=== PATIENT | male | born 1945 | race Caucasian/White ===

== ENCOUNTER 2025-01-03 00:19 | Day surgery (SDC) | payer MEDICARE, SELFPAY ==
[2024-12-26 10:06] VITALS: BMI 20.5
--- OUTSIDE RECORDS SUMMARY | 2025-01-03 00:21 | XMS_ITS | Clinical Summary ---
Author Organization [facility] Address [address] [place] [address] Phone Care Team Providers Care Gauge Inspector Name Role Phone KAI BUSCH Unavailable [phone] KIMBERLEE CHRIS, PHANI Kraus Unavailable [phone] Reason for Visit and Chief Complaint The Chief Complaint is: Pt. here for H&P for MILD procedure scheduled for 10/22/23 Plan of Treatment Will proceed as planned with bilateral L3 - 4, L4 - 5 minimally invasive lumbar decompression under fluoroscopic guidance. Follow-up in 7 to 14 days for wound care. - Last Documented On 09/30/2023 2:41PM ; [facility] Pending Tests Order Diagnosis Results Due Ordering P rovider Pain Management CPT MILD Procedure Spinal steno sis, lumbar region with neurogenic claudication 07/17/23 PHANI FARRAR MD Last Documented On 7:07AM ; [facility] Assessments Includes: Assessments from this encounter Findings - [M19.90 - Unspecified osteoarthritis, unspecified site] Osteoarthritis of multiple sites - Last Documented On 09/30/2023 2:41PM ; [facility] - [M46.1 - Sacroiliitis, not elsewhere classified] Left sacroiliitis - Last Documented On 09/30/2023 2:41PM ; [facility] - [M25.552 - Pain in left hip] Arthralgia of the left pelvis/hip/femur - Last Documented On 09/30/2023 2:41PM ; [facility] - [M54.9 - Dorsalgia, unspecified] DORSALGIA - Last Documented On 09/30/2023 2:41PM ; [facility] - [M47.897 - Other spondylosis, lumbosacral region] Lumbosacral spondylosis - Last Documented On 09/30/2023 2:41PM ; [facility] - [M48.062 - Spinal stenosis, lumbar region with neurogenic claudication] Lumbar stenosis with neurogenic claudication - Last Documented On 09/30/2023 2:41PM ; [facility] - [M54.17 - Radiculopathy, lumbosacral region] Lumbosacral radiculopathy - Last Documented On 09/30/2023 2:41PM ; [facility] - [G89.29 - Other chronic pain] Chronic pain - Last Documented On 09/30/2023 2:41PM ; [facility] Medical Equipment - Implanted Devices Includes: Current Devices No Medical Equipment Recorded Medications Includes: Medications discussed during this encounter and other current Medications Current Medications (continue as prescribed) Benicar HCT 20-12.5 MG Oral Tablet 02/04/2022 Provid er: Diagnosis: Last Documented On 02/04/2022 2:26PM By Christian GARCIA ; [facility] Ezetimibe 10 MG Oral Tablet 02/04/2022 Provider: Diagnosis: Last Documented On 02/04/2022 2:22PM By Christian GARCIA ; [facility] Past Medications on file Diclofenac Sodium 75 MG Oral Tablet Delayed Release 07/29/2022 - 10/27/2022 Provider: PHANI FARRAR MD Diagnosis: Dorsalgia, unspe cified TAKE ONE TABLET BY MOUTH TWI CE a DAY WITH FOOD AND WATER NEEDED FOR PAIN Last Documented On 07/29/2022 12:37PM By Phani Farrar MD ; [facility] Medications Administered Includes: Administered Medications from this encounter No Administered Medications Recorded Vital Signs Includes: Vital Signs from this encounter Vital Name 09/30/2023 01:59P Blood Pressure Sitting R 126/88 BP Cuff Size Regular Pulse Rate-Sitting (bpm) 64 Respiration Rate (breaths/min) 16 Height (in) 69 Weight (lb) 145 Body Mass Index 21.4 Body Surface Area 1.8 Pain Level 1 Oxygen Saturation (%) 95 Last Documented: On 09/30/2023 2:02PM ; [facility] Results Includes: Results discussed during this encounter No Results Recorded For Specified Dates History of Present Illness Includes: History of Present Illness from this encounter HPI PHQ-9 Score: 0 Date:09-23-22BPI Score: Date:MiDAS Score: Date:SOAPP-R Score: 0 low Date:23-86-33Gmby Location: LOWER BACK L4 L5 LT HIP PAIN Quality: SHOOTING CONSTANT PAIN IN HIP BACK IS CONSTANTRadiation: DOWN LT LEG DOWN THE INSIDE TO FOOT AND GOES TO SLEEPSeverity: MODERATETiming: CONTINUOUSAssociated Sx: NONEAggravating Factors:STANDING WALKING BENDING FORWARD, BENDING DOWN CERTAIN WAYS HE MOVES CAUSES SHARP PAIN TO THE HIP, LIFTING, 5 LBS UP STAIRSAlleviating Factors:SITTING, LEANING FORWARD, Past Tx: TENS UNIT, ICE HEAT, DICLOFENAC, GABAPENTIN,BIOFREEZE, LIDICAINE, DR. CASTANO PAIN MANAGEMENT CORTIZONE SHOT DID NOT HELP ALSO INJECTIONS 20 YEARS AGO STEROID EPIDURAL AND THAT HELP. DR. BACON IN [place] CHIROPRACTOR ACCU PUNTURE FOR HEADACHES THAT HELPED. HAS SEEN DR.. 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 YOEL WELLS is a 77 year old male. - Allergy list reviewed - Allergy list reviewed - Problem list reviewed - Medication reconciliation performed - Medication list reviewed - Pain comes/goes - Pain in AM Pain in AM - Primary pain location Left hip and lower back - Primary pain duration Inthe back it is constant - Secondary pain duration It changes sometimes hours other times shorter - Secondary pain location Left hip - Pain is dull, aching - Pain is described as numbness - Pain is deep - Pain is heavy - Relieved by repositioning - Relieved by leaning forward - Pain aggravated sitting - Pain aggravated standing - Pain aggravated by walking - Pain aggravated lifting - Pain aggravated by working - Pain aggravated bending - No vertigo Discussion:Patient returns in follow-up in preparation for plan to middle invasive lumbar decompression bilaterally at the L3 - 4 and L4 - 5 levels. He has had no interval change in his typical health. He denies new peripheral edema, fatigue or shortness of breath/dyspnea. He denies any decreasing activity tolerance. He has started no new medications has no new allergies since last seen. We discussed at length the procedure, appropriate outcomes and expectations. We discussed appropriate pre-and post procedure instructions to include NPO status from midnight the morning the procedure except for his and medications with small sip of water, holding aspirin and NSAIDs for 7 days before in 2 days after the procedure. We discussed having a food service driver the day the procedure. We also discussed appropriate wound care and activity restrictions following the procedure to include the avoidance of showers are soaks for 48 hours and the avoidance of soaks for one week after the procedure. He will not drive for the following week. We discussed use of the hip cleanse the night before the morning of the procedure to reduce the risk of infection. He is not allergic to penicillin to cephalosporins. He is not diabetic. He is not on anticoagulants. He does have tramadol at home for pain control as necessary but will likely be able to control his pain with ice, rest and [id number] analgesics (Tylenol). Patient will follow-up in 7 to 14 days to assess wound healing. He understands it may take as long as 6 months to see the full effect the procedure. He is not been scheduled for physical therapy evaluation because he prefers to do this closer to home and [place]. The do not have are postoperative protocol but we can certainly transfer this to them prior to initiation of therapy. Risks, benefits and alternatives the above. Options were discussed in detail the patient who expressed explicit understanding and consent to proceed. Questions were elicited, asked and answered the best of our ability and to his satisfaction today. [place] prescription monitoring database was reviewed and found to be appropriate. PRIOR VISIT (07/15/23): Patient returns in follow-up 2 weeks after undergoing repeat epidural injection on July 07, 2023. He has a continued and consistent benefit from this procedure. We discussed minimally invasive lumbar decompression and he is not quite ready to move forward with this until his pain returns. At that time, we can consider repeat injections versus going straight the minimally invasive lumbar decompression or both in an effort to treat pain both in the immediate term as well as over the manager intermediate.Multiple questions were answered today new and extensive about time spent in discussion regarding the expected outcomes, the recovery time and the procedure itself today. Risks, benefits and alternatives to the above options were discussed in detail the patient who expressed explicit understanding and consent to proceed once his pain returns. No other concerns noted. Patient will at this point follow-up on as-needed basis. PRIOR VISIT (06/17/23): Patient returns less than 2 weeks since his most recent right-sided L3 - 4, L4 - 5 transforaminal epidural steroid injection. Although he does well with each injection, he admits today that he did not get complete relief from the right-sided epidural injection this time through. However at the time of his last visit he is doing quite well and did not wish to have any additional treatment. He returns today however with an increase in right lower extremity pain would like to repeat epidural injection. He like to schedule this for 2 or 3 weeks out as he like to get this done right before . He is done well with these in the past and discipline almost exactly at 3 months for repeat procedure. We also discussed minimally invasive lumbar decompression as an option. He has significant ligament improvement hypertrophy and central canal stenosis at the L3 - 4 and L4 - 5 levels on MRI from 2021 and this is apparent as well although less well-defined on the CT scan more recent. Given recurrent radicular symptoms, at worsening of his pain with standing and walking consistent with neurogenic claudication (patient can stand no longer than 10 to 15 minutes at a time without needing to rest, he can walk no greater than 150 feet before needing to stop and rest). Pain with activity is greater than 6 - 7/10. This limits his last was ability to participate in daily activity including the care of his . He has a difficult time participating ADLs and self-care. This is despite fairly optimal and maximal conservative therapies including oral and topical analgesics, physical therapy, multiple interventional therapies, rest and time over the past several years. On encouraged him to continue home exercises in the interim. Patient is not requesting refills of his medications. Risks, benefits and alternatives the above treatment options were discussed in detail the patient who expressed explicit understanding and consent to proceed. Questions were elicited, asked and answered the best of our ability and to his satisfaction today. [place] prescription monitoring database was reviewed and found to be appropriate. PRIOR VISIT (05/13/23) Patient returns several weeks following a repeat right L3 - 4, L4 - 5 transforaminal epidural steroid injection. He describes 95% improvement with this procedure. So far is had bilateral steroid injections at the same levels with consistent response each time suggesting this is as true underlying diagnosis. Should his pain return in a similar fashion we can certainly repeat the future. We did try to limit to every 3 to 4 months or 3 to 4 times per year. He understands this. Certainly if his symptoms progress, should he not get significant response to future injections or should he have undergone multiple injections over multiple years it may be more prudent to consider alternative treatment options including surgical consult, minimally invasive lumbar decompression or spinal cord stimulation depending upon preference, presentation and findings at the time. Questions were elicited, asked and answered the best of our ability to his satisfaction today. [place] prescription monitoring program was reviewed and found to be appropriate PRIOR VISIT (04/14/23): Patient returns in follow-up just over 2 months since last seen. Apparently he was lifting/carrying feed bags for his daughter and experience markedly increased right-sided low back and buttock pain. This is similar pain with is experiencing at the time of his last follow-up and is a mirror image of the pain he was experiencing on the left side which did eventually respond to left L3 - 4 and L4 - 5 transforaminal epidural injection. Although he does have point tenderness of the SI joint and does describe some pain with transitional movement, he is more consistent with his description of increasing intensity of pain with standing that resolves with sitting or leaning forward consistent with likely neurogenic claudication. This pain is symmetrical, mirror image of the pain he experienced on the contralateral side and is aggravated the same activities. He did not respond to SI joint injections on the left side nor the responses facet interventions. As a result, I recommended trying right-sided L3 - 4, L4 - 5 transforaminal epidural injection 1st and if ineffective, consider alternative treatments at that time. He is in agreement. He is been consistent with home exercises. I've encouraged him to continue these. He can continue topical analgesics. His goal is to avoid restarting tram at all. Can consider additional physical therapy in the future should he fail to respond although he is reluctant to do this as this is not been especially helpful for him in the past. Risks, benefits and alternatives the above treatment options were discussed in detail the patient who expressed explicit understanding and consent to proceed. Questions were elicited, asked and answered the best of our ability and to his satisfaction today. [place] prescription monitoring database was reviewed and found to be appropriate. Prior Visit (02/03/23): Patient returns in 3 month follow-up describing markedly and persistently improved left lower extremity symptoms following a single episode of left L3 - 4, L4 - 5 transforaminal epidural steroid injections in September of this year. His pain has not returned to any degree on the left side. However, he has started to notice increasing discomfort on the right hip which is still mild to moderate and is not currently limiting his activity. On the right side, he is failed to respond to multiple techniques including hip injections, hip blocks and facet blocks. However, which would likely consider repeating L3 - 4 and L4 - 5 transforaminal injections on the right side of the future given his significant and dramatic response to similar pain on the left. If at that point in time his symptoms do not improve, we can consider reimaging and begin to discuss more definitive treatment options as appropriate. He does have persistent axial back pain as well likely related to spondylosis. However, he is not requiring use of tramadol or any other analgesics at this time. He is active at home and outside. We discussed continuing home exercises and he intends to do so at least 2 to 3 times a week when able. Otherwise he feels he is doing quite well and is pleased with this overall response. No new concerns noted today otherwise. Questions were elicited, asked and answered the best of our ability to his satisfaction today. [place] prescription monitoring database was reviewed and found to be appropriate. No new prescriptions or refills required today. No urine drug screen was performed today. Patient will follow-up on as-needed basis at this point. Imaging: All relevant imaging available was personally reviewed with the patient today with the following tests and results noted: Left hip arthrogram dated June 24, 2022: spherical femoral head. No evidence of subchondral collapse or significant subchondral cyst formation. Smooth acetabulum. 10 mm subchondral cyst within the superior and lateral acetabulum. Femoral head is well-positioned within the acetabulum. The ileum, ischium and pubic ramus are normal in appearance. Mild degenerative fraying of the superior and anterior labrum without discrete tear. Posterior and inferior labrum are normal. Mild femoral acetabular condyle thinning without full thickness defect or fissure. Extensive sigmoid diverticulosis noted incidentally. Moderate calcific atherosclerosis of the left iliac and femoral arteries. MRI of the lumbar spine dated November 24, 2021: mild levoscoliosis. L4 on L5 anterolisthesis (grade 1). T 12 - L1 and L2 - 3 level shows mild disc bulging without central canal or foraminal stenosis. L3 - 4 level shows asymmetric disc bulge to the right with mild bilateral facet joint hypertrophy and moderate right neural foraminal stenosisWith ligamentum flavum hypertrophy contributing to moderate to severe central canal stenosis.. L4 - 5 level shows 6 mm of anterolisthesis (grade 1) L4 and L5 with diffuse disc bulging and bilateral moderate to severe facet joint arthropathy with ligamentum flavum hypertrophy resulting in increasing central canal stenosis and moderate to severe bilateral lateral recess stenosis greatest on the right since 2017. There is also mild left moderate right neural foraminal stenoses. L5 - S1 level shows disc bulging with moderate facet joint arthropathy without central canal or neural foraminal stenosis. X-ray of the left hip dated November 18, 2021 (Personal review):Shows sclerosis of the superior acetabulum with slight spurring off the superior acetabular room. No evidence of fracture or dislocation. Mild to moderate joint space narrowing at the inferior pole of the acetabulum on the left. Some and to his apathy off the issue bursa notable vascular complications in the right ilio femoral distribution. Significant stool with the pelvis. Social History Description Last Updated Current smoker 4 CIGS A DAY 02/04/2022 Last Documented On 4 1:58PM ; [facility] No recent change in sleep 02/04/2022 Last Documented On 4 1:58PM ; [facility] Alcohol 02/04/2022 Last Documented On 4 1:58PM ; [facility] Amount of alcohol per day: 2 beers aday 02/04/2022 Last Documented On 4 1:58PM ; [facility] Difficulty walking 02/04/2022 Last Documented On 4 1:58PM ; [facility] Not using drugs 02/04/2022 Last Documented On 4 1:58PM ; [facility] Smoking packs of cigarettes per day 4 ci garettes a day 02/04/2022 Last Documented On 4 1:58PM ; [facility] Smoking Status Unknown Procedures and Surgical History Includes: Procedures from this encounter Procedures Code Diagnosis Performing Provider Service L ocation Service Date use of tobacco assessment performed 1000F Last Documented On 4 1:58PM ; [facility] standardized depression screening: negative for symptoms 3351F Last Documented On 4 1:58PM ; [facility] review of medications documented 1160F Last Documented On 4 1:58PM ; [facility] screening for adult depression: impressi on and score 0 Last Documented On 4 1:58PM ; [facility] SOAPP-R: total score 5 Last Documented On 4 1:58PM ; [facility] SOAPP-R: total score 0 Last Documented On 4 1:58PM ; [facility] Surgical History Last Updated No Pacemaker 02/04/2022 Last Documented On 4 1:58PM ; [facility] Surgical / procedural history Nothing ju st medication 02/04/2022 Last Documented On 4 1:58PM ; [facility] Medical History Includes: Medical History addressed during this encounter Description Last Updated Denies a fear of falling. 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 0 02/04/2022 Last Documented On 4 1:58PM ; [facility] Blood pressure was high 02/04/2022 Last Documented On 4 1:58PM ; [facility] Hypertension 02/04/2022 Last Documented On 4 1:58PM ; [facility] No exposure to a contagious disease 01/18 Last Documented On 4 1:58PM ; [facility] No previous psychiatric treatment 2021 Last Documented On 4 1:58PM ; [facility] Not taking OTC medications 02/04/2022 Last Documented On 4 1:58PM ; [facility] Taking medication for high blood pressur e 02/04/2022 Last Documented On 4 1:58PM ; [facility] Acupuncture 02/04/2022 Last Documented On 4 1:58PM ; [facility]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 Last Documented On 4 1:58PM ; [facility] CT/MRI December 2021 for mri and january 2022 0 02/04/2022 Last Documented On 4 1:58PM ; [facility] Currently wearing eyeglasses 02/04/2022 Last Documented On 4 1:58PM ; [facility] Injection/Nerve blocks 02/04/2022 Last Documented On 4 1:58PM ; [facility] Message/Acupressure 02/04/2022 Last Documented On 4 1:58PM ; [facility] Moderate Pain 02/04/2022 Last Documented On 4 1:58PM ; [facility] No Pain Pump 02/04/2022 Last Documented On 4 1:58PM ; [facility] No Spinal cord stimulator 02/04/2022 Last Documented On 4 1:58PM ; [facility] Other method: 02/04/2022 Last Documented On 4 1:58PM ; [facility] Physical therapy 02/04/2022 Last Documented On 4 1:58PM ; [facility] Please list all illnesses/co nditions you have been diagnosed with: High blood pressure and high cholesterol 02/04/2022 Last Documented On 4 1:58PM ; [facility] Please list all surgeries: R otator cuff partial and full. hernia retna and cataracs 02/04/2022 Last Documented On 4 1:58PM ; [facility] Treatment with TENS unit 02/04/2022 Last Documented On 4 1:58PM ; [facility] X-rays October and november 2021 2 Last Documented On 4 1:58PM ; [facility] Family History Includes: Family History addressed during this encounter Description Last Updated Paternal history of family history of is chemic heart disease 02/04/2022 Last Documented On 4 1:58PM ; [facility] Review of Systems Includes: Review of Systems from this encounter Systemic: No systemic symptoms other then noted and no recent weight loss. Head: No head symptoms other then noted. Headache. Neck: No neck pain. Eyes: Diplopia. Otolaryngeal: No otolaryngeal symptoms other than noted. Cardiovascular: No cardiovascular symptoms other than noted. Cold hands or feet. Pulmonary: No pulmonary symptoms other than noted. Chronic cough. Gastrointestinal: No difficulty chewing and no dysphagia. Genitourinary: No genitourinary symptoms other than noted. Endocrine: No endocrine symptoms other than noted. Temperature intolerance, muscle weakness, and Weakness. Hematologic: No easy bleeding. A tendency for easy bruising. No tendency for easy bruising. Musculoskeletal: No musculoskeletal symptoms other than noted. Back pain and pain localized to one or more joints. Neurological: No neurological symptoms other than noted and no fainting passing out with needles or medical procedures. Psychological: No sleep apnea. Skin: No skin symptoms other than noted. Pruritus localized to a skin rash or sores. Mental Status Includes: Mental Status from this encounter No Mental Status Recorded Functional Status Includes: Functional Status from this encounter No Functional Status Recorded Physical Exam Includes: Physical Exam from this encounter Allergies Includes: Active Allergies Substance Type Reaction Onset Date Resolved Date Statu s Tetanus Toxoids Allergy 02/04/2022 Act suzie Last Documented On 4 9:23AM ; [facility] Sulfonamides Allergy Shock 02/04/2022 Active Last Documented On 4 9:23AM ; [facility] Sulfa Antibiotics Allergy Shock 02/04/2022 A ctive Last Documented On 4 9:23AM ; [facility] Statins Allergy 02/04/2022 Active Last Documented On 03/01/2024 9:23AM ; [facility] Note: MUSCLE PAIN Iodinated contrast media Allergy Shortne ss of Breath / Dyspnea 02/04/2022 Active Last Documented On 4 9:23AM ; [facility] Encounters Encounter Provider Location Date Check-In Time Check-Out Time Diagnosis PAIN MANAGEMENT FOLLOW UP PHANI FARRAR MD [facility] 024 1:54PM 2:15PM Osteoarthritis Multiple Sites,Chronic Pain,Spinal Stenosis Lumbar with Neurogenic Claudication,Arth ralgia - Pelvis / Hip / Femur Left,Spondylosis Lumbosacral Region,Radiculopa thy of Lumbosacral Region,Sacroiliit is Left,Dorsalgia Insurance Includes: Active Insurance Policies Plan Name Member ID Group # Subscriber Relationship Effect suzie Dates 1 - [facility]/MEDICARE ADV/[employer] [id number] YOEL WELLS Self Clinical Notes Includes: Clinical Notes from this encounter * Progress note Date Encounter Last Documented by 09/30/2023 PAIN MANAGEMENT FOLLOW UP Last d ocumented on 09/30/2023; 2:41 PM, PHANI FARRAR MD; [facility] Top of Document This document represents the pre-surgical History & Physical for this patient Chief Complaint The Chief Complaint is: Pt. here for H&P for MILD procedure scheduled for 10/22/23. History of Present Illness PHQ-9 Score: 0 Date:09-23-22 BPI Score: Date: MiDAS Score: Date: SOAPP-R Score: 0 low Date:09-23-22 Pain Location: LOWER BACK L4 L5 LT HIP PAIN Quality: SHOOTING CONSTANT PAIN IN HIP BACK IS CONSTANT Radiation: DOWN LT LEG DOWN THE INSIDE TO FOOT AND GOES TO SLEEP Severity: MODERATE Timing: CONTINUOUS Associated Sx: NONE Aggravating Factors:STANDING WALKING BENDING FORWARD, BENDING DOWN CERTAIN WAYS HE MOVES CAUSES SHARP PAIN TO THE HIP, LIFTING, 5 LBS UP STAIRS Alleviating Factors:SITTING, LEANING FORWARD, Past Tx: TENS UNIT, ICE HEAT, DICLOFENAC, GABAPENTIN,BIOFREEZE, LIDICAINE, DR. CASTANO PAIN MANAGEMENT CORTIZONE SHOT DID NOT HELP ALSO INJECTIONS 20 YEARS AGO STEROID EPIDURAL AND THAT HELP. DR. BACON IN [place] CHIROPRACTOR ACCU PUNTURE FOR HEADACHES THAT HELPED. HAS SEEN DR.. 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 YOEL WELLS is a 77 year old male. - Allergy list reviewed - Allergy list reviewed - Problem list reviewed - Medication reconciliation performed - Medication list reviewed - Pain comes/goes - Pain in AM Pain in AM - Primary pain location Left hip and lower back - Primary pain duration Inthe back it is constant - Secondary pain duration It changes sometimes hours other times shorter - Secondary pain location Left hip - Pain is dull, aching - Pain is described as numbness - Pain is deep - Pain is heavy - Relieved by repositioning - Relieved by leaning forward - Pain aggravated sitting - Pain aggravated standing - Pain aggravated by walking - Pain aggravated lifting - Pain aggravated by working - Pain aggravated bending - No vertigo Discussion:Patient returns in follow-up in preparation for plan to middle invasive lumbar decompression bilaterally at the L3 - 4 and L4 - 5 levels. He has had no interval change in his typical health. He denies new peripheral edema, fatigue or shortness of breath/dyspnea. He denies any decreasing activity tolerance. He has started no new medications has no new allergies since last seen. We discussed at length the procedure, appropriate outcomes and expectations. We discussed appropriate pre-and post procedure instructions to include NPO status from midnight the morning the procedure except for his and medications with small sip of water, holding aspirin and NSAIDs for 7 days before in 2 days after the procedure. We discussed having a food service driver the day the procedure. We also discussed appropriate wound care and activity restrictions following the procedure to include the avoidance of showers are soaks for 48 hours and the avoidance of soaks for one week after the procedure. He will not drive for the following week. We discussed use of the hip cleanse the night before the morning of the procedure to reduce the risk of infection. He is not allergic to penicillin to cephalosporins. He is not diabetic. He is not on anticoagulants. He does have tramadol at home for pain control as necessary but will likely be able to control his pain with ice, rest and eyau-njn-jeejryn analgesics (Tylenol). Patient will follow-up in 7 to 14 days to assess wound healing. He understands it may take as long as 6 months to see the full effect the procedure. He is not been scheduled for physical therapy evaluation because he prefers to do this closer to home and [place]. The do not have are postoperative protocol but we can certainly transfer this to them prior to initiation of therapy. Risks, benefits and alternatives the above. Options were discussed in detail the patient who expressed explicit understanding and consent to proceed. Questions were elicited, asked and answered the best of our ability and to his satisfaction today. [place] prescription monitoring database was reviewed and found to be appropriate. PRIOR VISIT (07/15/23): Patient returns in follow-up 2 weeks after undergoing repeat epidural injection on July 07, 2023. He has a continued and consistent benefit from this procedure. We discussed minimally invasive lumbar decompression and he is not quite ready to move forward with this until his pain returns. At that time, we can consider repeat injections versus going straight the minimally invasive lumbar decompression or both in an effort to treat pain both in the immediate term as well as over the manager intermediate.Multiple questions were answered today new and extensive about time spent in discussion regarding the expected outcomes, the recovery time and the procedure itself today. Risks, benefits and alternatives to the above options were discussed in detail the patient who expressed explicit understanding and consent to proceed once his pain returns. No other concerns noted. Patient will at this point follow-up on as-needed basis. PRIOR VISIT (06/17/23): Patient returns less than 2 weeks since his most recent right-sided L3 - 4, L4 - 5 transforaminal epidural steroid injection. Although he does well with each injection, he admits today that he did not get complete relief from the right-sided epidural injection this time through. However at the time of his last visit he is doing quite well and did not wish to have any additional treatment. He returns today however with an increase in right lower extremity pain would like to repeat epidural injection. He like to schedule this for 2 or 3 weeks out as he like to get this done right before . He is done well with these in the past and discipline almost exactly at 3 months for repeat procedure. We also discussed minimally invasive lumbar decompression as an option. He has significant ligament improvement hypertrophy and central canal stenosis at the L3 - 4 and L4 - 5 levels on MRI from 2021 and this is apparent as well although less well-defined on the CT scan more recent. Given recurrent radicular symptoms, at worsening of his pain with standing and walking consistent with neurogenic claudication (patient can stand no longer than 10 to 15 minutes at a time without needing to rest, he can walk no greater than 150 feet before needing to stop and rest). Pain with activity is greater than 6 - 7/10. This limits his last was ability to participate in daily activity including the care of his . He has a difficult time participating ADLs and self-care. This is despite fairly optimal and maximal conservative therapies including oral and topical analgesics, physical therapy, multiple interventional therapies, rest and time over the past several years. On encouraged him to continue home exercises in the interim. Patient is not requesting refills of his medications. Risks, benefits and alternatives the above treatment options were discussed in detail the patient who expressed explicit understanding and consent to proceed. Questions were elicited, asked and answered the best of our ability and to his satisfaction today. [place] prescription monitoring database was reviewed and found to be appropriate. PRIOR VISIT (05/13/23) Patient returns several weeks following a repeat right L3 - 4, L4 - 5 transforaminal epidural steroid injection. He describes 95% improvement with this procedure. So far is had bilateral steroid injections at the same levels with consistent response each time suggesting this is as true underlying diagnosis. Should his pain return in a similar fashion we can certainly repeat the future. We did try to limit to every 3 to 4 months or 3 to 4 times per year. He understands this. Certainly if his symptoms progress, should he not get significant response to future injections or should he have undergone multiple injections over multiple years it may be more prudent to consider alternative treatment options including surgical consult, minimally invasive lumbar decompression or spinal cord stimulation depending upon preference, presentation and findings at the time. Questions were elicited, asked and answered the best of our ability to his satisfaction today. [place] prescription monitoring program was reviewed and found to be appropriate PRIOR VISIT (04/14/23): Patient returns in follow-up just over 2 months since last seen. Apparently he was lifting/carrying feed bags for his daughter and experience markedly increased right-sided low back and buttock pain. This is similar pain with is experiencing at the time of his last follow-up and is a mirror image of the pain he was experiencing on the left side which did eventually respond to left L3 - 4 and L4 - 5 transforaminal epidural injection. Although he does have point tenderness of the SI joint and does describe some pain with transitional movement, he is more consistent with his description of increasing intensity of pain with standing that resolves with sitting or leaning forward consistent with likely neurogenic claudication. This pain is symmetrical, mirror image of the pain he experienced on the contralateral side and is aggravated the same activities. He did not respond to SI joint injections on the left side nor the responses facet interventions. As a result, I recommended trying right-sided L3 - 4, L4 - 5 transforaminal epidural injection 1st and if ineffective, consider alternative treatments at that time. He is in agreement. He is been consistent with home exercises. I've encouraged him to continue these. He can continue topical analgesics. His goal is to avoid restarting tram at all. Can consider additional physical therapy in the future should he fail to respond although he is reluctant to do this as this is not been especially helpful for him in the past. Risks, benefits and alternatives the above treatment options were discussed in detail the patient who expressed explicit understanding and consent to proceed. Questions were elicited, asked and answered the best of our ability and to his satisfaction today. [place] prescription monitoring database was reviewed and found to be appropriate. Prior Visit (02/03/23): Patient returns in 3 month follow-up describing markedly and persistently improved left lower extremity symptoms following a single episode of left L3 - 4, L4 - 5 transforaminal epidural steroid injections in September of this year. His pain has not returned to any degree on the left side. However, he has started to notice increasing discomfort on the right hip which is still mild to moderate and is not currently limiting his activity. On the right side, he is failed to respond to multiple techniques including hip injections, hip blocks and facet blocks. However, which would likely consider repeating L3 - 4 and L4 - 5 transforaminal injections on the right side of the future given his significant and dramatic response to similar pain on the left. If at that point in time his symptoms do not improve, we can consider reimaging and begin to discuss more definitive treatment options as appropriate. He does have persistent axial back pain as well likely related to spondylosis. However, he is not requiring use of tramadol or any other analgesics at this time. He is active at home and outside. We discussed continuing home exercises and he intends to do so at least 2 to 3 times a week when able. Otherwise he feels he is doing quite well and is pleased with this overall response. No new concerns noted today otherwise. Questions were elicited, asked and answered the best of our ability to his satisfaction today. [place] prescription monitoring database was reviewed and found to be appropriate. No new prescriptions or refills required today. No urine drug screen was performed today. Patient will follow-up on as-needed basis at this point. Imaging: All relevant imaging available was personally reviewed with the patient today with the following tests and results noted: Left hip arthrogram dated June 24, 2022: spherical femoral head. No evidence of subchondral collapse or significant subchondral cyst formation. Smooth acetabulum. 10 mm subchondral cyst within the superior and lateral acetabulum. Femoral head is well-positioned within the acetabulum. The ileum, ischium and pubic ramus are normal in appearance. Mild degenerative fraying of the superior and anterior labrum without discrete tear. Posterior and inferior labrum are normal. Mild femoral acetabular condyle thinning without full thickness defect or fissure. Extensive sigmoid diverticulosis noted incidentally. Moderate calcific atherosclerosis of the left iliac and femoral arteries. MRI of the lumbar spine dated November 24, 2021: mild levoscoliosis. L4 on L5 anterolisthesis (grade 1). T 12 - L1 and L2 - 3 level shows mild disc bulging without central canal or foraminal stenosis. L3 - 4 level shows asymmetric disc bulge to the right with mild bilateral facet joint hypertrophy and moderate right neural foraminal stenosisWith ligamentum flavum hypertrophy contributing to moderate to severe central canal stenosis.. L4 - 5 level shows 6 mm of anterolisthesis (grade 1) L4 and L5 with diffuse disc bulging and bilateral moderate to severe facet joint arthropathy with ligamentum flavum hypertrophy resulting in increasing central canal stenosis and moderate to severe bilateral lateral recess stenosis greatest on the right since 2017. There is also mild left moderate right neural foraminal stenoses. L5 - S1 level shows disc bulging with moderate facet joint arthropathy without central canal or neural foraminal stenosis. X-ray of the left hip dated November 18, 2021 (Personal review):Shows sclerosis of the superior acetabulum with slight spurring off the superior acetabular room. No evidence of fracture or dislocation. Mild to moderate joint space narrowing at the inferior pole of the acetabulum on the left. Some and to his apathy off the issue bursa notable vascular complications in the right ilio femoral distribution. Significant stool with the pelvis. 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 hernia retna and cataracs. Medical: No previous psychiatric treatment. Currently wearing eyeglasses, orthopedic history Left Knee Score mild pain Moderate Pain, and Hypertension. No Spinal cord stimulator and no Pain Pump. Surgical / Procedural: Surgical / procedural history Nothing just medication. No Pacemaker. Medications: Taking medication for high blood pressure. Not taking OTC medications. Tests: Blood pressure was high, X-rays October and november 2021, and CT/MRI December 2021 for mri and january 2022. Exposure: No exposure to a contagious disease. Physical Trauma: Has had no fall in the last 12 months. and Denies a fear of falling. 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 Social History Difficulty walking. Behavioral: Amount of alcohol per day: 2 beers aday. Tobacco use: Current smoker 4 CIGS A DAY and cigarette smoking smoking packs of cigarettes per day 4 cigarettes a day. Alcohol: Alcohol. Drug Use: Not using drugs. Habits: No recent change in sleep. Allergies - Iodinated contrast media Reaction: Shortness of Breath / Dyspnea - Statins - Sulfa Antibiotics Reaction: Shock - Sulfonamides Reaction: Shock - Tetanus Toxoids Family History Paternal: Ischemic heart disease Review Of Systems Systemic: No systemic symptoms other then noted and no recent weight loss. Head: No head symptoms other then noted. Headache. Neck: No neck pain. Eyes: Diplopia. Otolaryngeal: No otolaryngeal symptoms other than noted. Cardiovascular: No cardiovascular symptoms other than noted. Cold hands or feet. Pulmonary: No pulmonary symptoms other than noted. Chronic cough. Gastrointestinal: No difficulty chewing and no dysphagia. Genitourinary: No genitourinary symptoms other than noted. Endocrine: No endocrine symptoms other than noted. Temperature intolerance, muscle weakness, and Weakness. Hematologic: No easy bleeding. A tendency for easy bruising. No tendency for easy bruising. Musculoskeletal: No musculoskeletal symptoms other than noted. Back pain and pain localized to one or more joints. Neurological: No neurological symptoms other than noted and no fainting passing out with needles or medical procedures. Psychological: No sleep apnea. Skin: No skin symptoms other than noted. Pruritus localized to a skin rash or sores. Physical Findings - Vitals taken 09/30/2023 01:59 pm BP-Sitting R 126/88 mmHg BP Cuff Size Regular Pulse Rate-Sitting 64 bpm Respiration Rate 16 per min Height 69 in Weight 145 lbs Body Mass Index 21.4 kg/m2 Body Surface Area 1.8 m2 Pain Level 1 Oxygen Saturation 95 % Vital Signs: - Pain level by numeric rating scale 4. Musculoskeletal System: General/bilateral: Musculoskeletal Scales: Value Lumbar oswestry score 18 Psychiatric: Psychiatric: Value PHQ9 score: 0 HEENT: NC/AT. Anicteric. Clear Conjunctiva. PERRLA. MM's pink/moist. No lesions of nasal mucosa. No discharge via nares. No lesions of EAC. No discharge of EAC. No lesions of oropharynx. Oropharynx without erythema or exudate. Neck supple. No thyromegally. No palpable masses. No lymphadenopathy in cervical chain bilaterally. CVS: RRR. No murmurs. No gallops. No rubs. No peripheral edema. Peripheral pulses palpable in all extremities. Pulmonary: CTA bilaterally. No wheezes. No rales. No crackles. No rubs. Spine/MSK: Loss of normal lumbar lordosis. Patient stands with weight-bearing shift to the right. He is tender over the PSI S region of the left. Nontender over the trochanteric bursa. Minimally tender over the mid to lower lumbar facets left greater than right. Positive lumbar facet loading left greater than right. Negative straight leg raise bilaterally. Positive thigh thrust and Preeti maneuver on the left for concordant low back and buttock pain. Negative compression and distraction test the pelvis. Positive Gaenslen's maneuver on the left for buttock pain. Gait: Moderately antalgic. No steppage gait. No Trendelenburg gait. No circumspected gait pattern. Heel walk normal. Toe walk normal. Tandem gait normal. Neuro: Awake. Alert. Oriented x3. DTR's intact in all extremities. DTR's equal in all extremities. No focal neurologic deficit. [id number] normal bilaterally. Babinski downgoing. Psych: No apparent distress. Mood normal. Affect normal. No pain behaviors. Tests Educational Testing: SOAPP-R: total score: Value SOAPP-R: total score 5 SOAPP-R: total score 0 Assessment - [M19.90 - Unspecified osteoarthritis, unspecified site] Osteoarthritis of multiple sites - [M46.1 - Sacroiliitis, not elsewhere classified] Left sacroiliitis - [M25.552 - Pain in left hip] Arthralgia of the left pelvis/hip/femur - [M54.9 - Dorsalgia, unspecified] DORSALGIA - [M47.897 - Other spondylosis, lumbosacral region] Lumbosacral spondylosis - [M48.062 - Spinal stenosis, lumbar region with neurogenic claudication] Lumbar stenosis with neurogenic claudication - [M54.17 - Radiculopathy, lumbosacral region] Lumbosacral radiculopathy - [G89.29 - Other chronic pain] Chronic pain Discussed The preoperative H & P is done today in the office. No major problems are found. We will proceed with surgical intervention accordingly. Plan Will proceed as planned with bilateral L3 - 4, L4 - 5 minimally invasive lumbar decompression under fluoroscopic guidance. Follow-up in 7 to 14 days for wound care. Practice Management Use of tobacco assessment performed Review of medications documented; Standardized depression screening: negative for symptoms and for adult impression and score 0. A total of 32 minutes were spent on this patient's evaluation, as above, with greater than 50% of this time spent in direct [id number] counseling and coordination of care. Results of this interaction were communicated directly to the patient's referring and/or primary care provider. All imaging studies and test results discussed in the above document were personally reviewed and evaluated by the performing provider. For all patients on acute or chronic opioids, ongoing need for opioid analgesia is assessed at each visit with consideration of discontinuation or wean to lowest effective dose when possible and appropriate. Contents of this document have been edited for correctness, but may be subject to typographical or practice or student teacher errors. Verify all diagnoses, medications, dosages, and patient instructions with patient and/or the originator of this document. Care Team - KAI BUSCH - Internal Medicine - PHANI FARRAR MD - Pain Medicine Health Reminders - Assess BMI satisfied 09/30/2023. - Assess Tobacco Use satisfied 09/30/2023. - Depression Screening satisfied 09/30/2023. - Follow up plan for Depression Screening satisfied 09/30/2023.
--- OUTSIDE RECORDS SUMMARY | 2025-01-03 00:21 | XMS_ITS | Encounter Summary ---
Author Organization [facility] Address [address] [place] [address] Phone Care Team Providers Care Sustainable Systems Analyst Name Role Phone Tr Us MD Primary Care Provider [phone] Brian Nascimento MD Unavailable [phone] Nayely Huntley MD Unavailable [phone] Kamron eRy MD Unavailable [phone] Faustino Mendiola MD Unavailable [phone] Bob Ocasio MD Unavailable [phone] Aki Mcgill Ud, MD Unavailable Phani Farrar MD Unavailable [phone] Manjinder Nascimento MD Unavailable [phone] Curt Reyes MD Unavailable [phone] Curt Reyes MD Unavailable [phone] Encounter Details Date Type Department Care Team (Late st Contact Info) Description 06/25/2020 Orders Only [facility] [address] [place] [address] Scanning, Provider Social History Tobacco Use Types Packs/Day Years Used Date Smoking Tobacco: Some Days Cigarettes Started: [birth year]20/1961 Smokeless Tobacco: Never Alcohol Use Standard Drinks/Week Comments Yes 1 (1 standard drink = 0.6 oz pur e alcohol) daily PHQ-2 Answer Date Recorded PHQ-2 Score 0 02/15/2020 Sex and Gender Information Value Date Recorded Sex Assigned at Not on file Legal Sex Male 12:14 AM [employer]ACH[employer] Gender Identity Not on file Sexual Orientation Not on file documented as of this encounter Plan of Treatment Not on file documented as of this encounter Procedures Procedure Name Priority Date/Time Associated Diagnosis Comments SCAN - RADIOLOGY/IMAGING 06/25/2020 documented in this encounter Results * SCAN - RADIOLOGY/IMAGING (06/25/2020) Anatomical Region Laterality Modality Other us Provider Scanning Final Result documented in this encounter Visit Diagnoses Not on filedocumented in this encounter Additional Health Concerns Infection Onset Date Last Indicated Resolved Time COVID: Suspected 09/17/2022 09/17/2022 09/17/2022 3:39 PM [employer]ACHUTE [employer] Influenza, adult 09/17/2022 09/17/2022 09/24/2022 3:05 AM [employer]ACHUTE [employer] documented as of this encounter Care Teams Sustainable Systems Analyst Relationship Specialty Start Date End Date Tr Us MD [address] [place], [place] [id number] PCP - General Infectious Diseases 05/21/17 Brian Nascimento MD [address] [place] [address] Consulting Physician Urology 05/21/11 Nayely Huntley MD [address] [place] [address] Consulting Physician Ophthalmology 05/21/17 Kamron Rey MD [address] [place] [address] Consulting Physician Anesthesiology 05/21/17 Faustino Mendiola MD [address] [place] [address] Consulting Physician Gastroenterology 06/28/17 Bob Ocasio MD [address] [place] [address] Consulting Physician Orthopedic Surgery 11/18/21 Aki Mcgill Ud, MD [address] [place] [address] [place] [id number] Consulting Physician Surgery 12/22/21 Phani Farrar MD [address] [place] [address] [place] [phone] Consulting Physician Pain Management 03/16/22 Manjinder Nascimento MD [address] [facility] [address] [place] [address] Surgeon Orthopedic Surgery 12/18/22 Curt Reyes MD [address] [place] [address] Consulting Physician Otolaryngology 05/23/23 Curt Reyes MD [address] [place] [address] Consulting Physician Otolaryngology 06/04/23 09/13/23 documented as of this encounter
--- OUTSIDE RECORDS SUMMARY | 2025-01-03 00:21 | XMS_ITS | Clinical Summary ---
Author Organization [facility] Address [address] [place] [address] Phone Care Team Providers Care Gang Knife Fish Chopper Name Role Phone NARAYAN KAI Unavailable [phone] KIMBERLEE CHRIS, PHANI Kraus Unavailable [phone] Reason for Visit and Chief Complaint POST PROCEDURE PHONE CALL Plan of Treatment Pending Tests Order Diagnosis Results Due Ordering P rovider Pain Management CPT MILD Procedure Spinal steno sis, lumbar region with neurogenic claudication 07/17/23 PHANI FARRAR MD Last Documented On 4 7:07AM ; [facility] Assessments Includes: Assessments from this encounter No Assessments Recorded Medical Equipment - Implanted Devices Includes: Current Devices No Medical Equipment Recorded Medications Includes: Medications discussed during this encounter and other current Medications Current Medications (continue as prescribed) Benicar HCT 20-12.5 MG Oral Tablet 02/04/2022 Provid er: Diagnosis: Last Documented On 02/04/2022 2:26PM By Christian GARCIA ; [facility] Ezetimibe 10 MG Oral Tablet 02/04/2022 Provider: Diagnosis: Last Documented On 02/04/2022 2:22PM By Christian GARCIA ; [facility] Past Medications on file Diclofenac Sodium 75 MG Oral Tablet Delayed Release 07/29/2022 - 10/27/2022 Provider: PHANI FARRAR MD Diagnosis: Dorsalgia, unspe cified TAKE ONE TABLET BY MOUTH TWI CE a DAY WITH FOOD AND WATER NEEDED FOR PAIN Last Documented On 07/29/2022 12:37PM By Phani Farrar MD ; [facility] Medications Administered Includes: Administered Medications from this encounter No Administered Medications Recorded Results Includes: Results discussed during this encounter No Results Recorded For Specified Dates History of Present Illness Includes: History of Present Illness from this encounter No History of Present Illness Recorded Social History Description Last Updated Current smoker 4 CIGS A DAY 02/04/2022 Last Documented On 4 11:08AM ; [facility] No recent change in sleep 02/04/2022 Last Documented On 4 11:08AM ; [facility] Alcohol 02/04/2022 Last Documented On 4 11:08AM ; [facility] Amount of alcohol per day: 2 beers aday 02/04/2022 Last Documented On 4 11:08AM ; [facility] Difficulty walking 02/04/2022 Last Documented On 4 11:08AM ; [facility] Not using drugs 02/04/2022 Last Documented On 4 11:08AM ; [facility] Smoking packs of cigarettes per day 4 ci garettes a day 02/04/2022 Last Documented On 4 11:08AM ; [facility] Smoking Status Unknown Procedures and Surgical History Surgical History Last Updated No Pacemaker 02/04/2022 Last Documented On 4 11:08AM ; [facility] Surgical / procedural history Nothing ju st medication 02/04/2022 Last Documented On 4 11:08AM ; [facility] Medical History Includes: Medical History addressed during this encounter Description Last Updated Denies a fear of falling. 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 0 02/04/2022 Last Documented On 4 11:08AM ; [facility] Blood pressure was high 02/04/2022 Last Documented On 4 11:08AM ; [facility] Hypertension 02/04/2022 Last Documented On 4 11:08AM ; [facility] No exposure to a contagious disease 01/18 Last Documented On 4 11:08AM ; [facility] No previous psychiatric treatment 2021 Last Documented On 4 11:08AM ; [facility] Not taking OTC medications 02/04/2022 Last Documented On 4 11:08AM ; [facility] Taking medication for high blood pressur e 02/04/2022 Last Documented On 4 11:08AM ; [facility] Acupuncture 02/04/2022 Last Documented On 4 11:08AM ; [facility] patient centered care specialist 02/04/2022 Last Documented On 4 11:08AM ; [facility] CT/MRI December 2021 for mri and january 2022 0 02/04/2022 Last Documented On 4 11:08AM ; [facility] Currently wearing eyeglasses 02/04/2022 Last Documented On 4 11:08AM ; [facility] Injection/Nerve blocks 02/04/2022 Last Documented On 4 11:08AM ; [facility] Message/Acupressure 02/04/2022 Last Documented On 4 11:08AM ; [facility] Moderate Pain 02/04/2022 Last Documented On 4 11:08AM ; [facility] No Pain Pump 02/04/2022 Last Documented On 4 11:08AM ; [facility] No Spinal cord stimulator 02/04/2022 Last Documented On 4 11:08AM ; [facility] Other method: 02/04/2022 Last Documented On 4 11:08AM ; [facility] Physical therapy 02/04/2022 Last Documented On 4 11:08AM ; [facility] Please list all illnesses/co nditions you have been diagnosed with: High blood pressure and high cholesterol 02/04/2022 Last Documented On 4 11:08AM ; [facility] Please list all surgeries: R otator cuff partial and full. hernia retna and cataracs 02/04/2022 Last Documented On 4 11:08AM ; [facility] Treatment with TENS unit 02/04/2022 Last Documented On 4 11:08AM ; [facility] X-rays October and november 2021 2 Last Documented On 4 11:08AM ; [facility] Family History Includes: Family History addressed during this encounter Description Last Updated Paternal history of family history of is chemic heart disease 02/04/2022 Last Documented On 4 11:08AM ; [facility] Review of Systems Includes: Review of Systems from this encounter No Review of Systems Recorded Mental Status Includes: Mental Status from this encounter No Mental Status Recorded Functional Status Includes: Functional Status from this encounter No Functional Status Recorded Physical Exam Includes: Physical Exam from this encounter No Physical Exam Recorded Allergies Includes: Active Allergies Substance Type Reaction Onset Date Resolved Date Statu s Tetanus Toxoids Allergy 02/04/2022 Act suzie Last Documented On 4 9:23AM ; [facility] Sulfonamides Allergy Shock 02/04/2022 Active Last Documented On 4 9:23AM ; [facility] Sulfa Antibiotics Allergy Shock 02/04/2022 A ctive Last Documented On 4 9:23AM ; [facility] Statins Allergy 02/04/2022 Active Last Documented On 03/01/2024 9:23AM ; [facility] Note: MUSCLE PAIN Iodinated contrast media Allergy Shortne ss of Breath / Dyspnea 02/04/2022 Active Last Documented On 4 9:23AM ; [facility] Encounters Encounter Provider Location Date Check-In Time Check-Out Time Diagnosis POST PROCEDURE PHONE CALL PHANI FARRAR MD 10/25/2023 11:08AM 11:59PM Insurance Includes: Active Insurance Policies Plan Name Member ID Group # Subscriber Relationship Effect suzie Dates 1 - [facility]/MEDICARE ADV/[employer]ARP [id number] YOEL WELLS Self Clinical Notes Includes: Clinical Notes from this encounter * Progress note Date Encounter Last Documented by 10/25/2023 POST PROCEDURE PHONE CALL Last d ocumented on 10/25/2023; 1:55 PM, Brunilda Robles RN; [facility] Top of Document Post-Procedural Patient Screening Questionnaire Date of Procedure: 10/22/23 Procedure: Bilateral L3-4, L4-5 MILD 1. How have you felt since your last procedure? Doing much better, a little sore, but that is to be expected. Improved Same Worse 2. Pain level prior to procedure? 5-6/10 3. Pain level currently? 3-10 4. How long after procedure did symptoms begin? Denies Same pain but worse New Symptoms ? If new, describe: Improving Staying the same Getting worse 5. Any post procedure issues with injection? Denies Heat Swelling Soreness Redness Streaking Injection site pain Bleeding Discharge/Drainage 6. Are you experiencing new numbness in the groin or saddle area? Yes No 7.New loss of bowel or bladder control? Yes No 8. Are you having any of the following symptoms? Denies Fever Chills Night Sweats Rigors/Shaking Chills Headaches Neck Stiffness Sensitivity to sound New muscle pain/Stiffness Weakness Nausea Vomiting Diarrhea Dizziness Rash Flushing Mood Irritability Blood Pressure changes Blood sugar changes Completed by Alfonzo Robles RN on 10/25/23 Current Medication - Benicar HCT 20-12.5 MG Oral Tablet 1 capsule daily 0 days, 0 refills - Ezetimibe 10 MG Oral Tablet 1 capsule daily 0 days, 0 refills - Gabapentin 300 MG Oral Capsule One tablet twice a day 0 days, 0 refills Past Medical/Surgical History Reported: Acupuncture, Injection/Nerve blocks, patient centered care specialist, Treatment with TENS unit, Physical therapy, Message/Acupressure, [...] Toxoids Family History Paternal: Ischemic heart disease Care Team - KAI BUSCH - Internal Medicine - PHANI FARRAR MD - Pain Medicine Health Reminders - Assess Tobacco Use satisfied 10/25/2023.
--- OUTSIDE RECORDS SUMMARY | 2025-01-03 00:21 | XMS_ITS | Clinical Summary ---
Author Organization [facility] Address [address] [place] [address] Phone Care Team Providers Care Financial Intern Name Role Phone KAI BUSCH Unavailable [phone] KIMBERLEE CHRIS, PHANI Kraus Unavailable [phone] Reason for Visit and Chief Complaint The Chief Complaint is: Patient is here today for 4-5 week follow up after MILD procedure done on 10/22/23. Patient report 70-80% relief from this procedure. States PT and home exercises are helping a lot Plan of Treatment Patient will continue with physical therapy as planned. He is off all analgesic medications. Can escalate his care as tolerated. Eventually patient will graduate to home exercise program. I've encouraged some level of restraint to avoid reinjury. Certainly movement based exercise such as matty chi or yoga can be considered as he has experience with this. We'll see him back in 3 months. That time if he is doing well we consider the release him to follow-up as needed. - Last Documented On 11/25/2023 9:38AM ; [facility] Pending Tests Order Diagnosis Results Due Ordering P rovider Pain Management CPT MILD Procedure Spinal steno sis, lumbar region with neurogenic claudication 07/17/23 PHANI FARRAR MD Last Documented On 4 7:07AM ; [facility] Instructions to patient Intervention and counseling on cessation of tobacco use : Patient recieved smoking cessation handout Last Documented On 4 9:12AM ; [facility] Assessments Includes: Assessments from this encounter Findings - [M19.90 - Unspecified osteoarthritis, unspecified site] Osteoarthritis of multiple sites - Last Documented On 11/25/2023 9:38AM ; [facility] - [M46.1 - Sacroiliitis, not elsewhere classified] Left sacroiliitis - Last Documented On 11/25/2023 9:38AM ; [facility] - [M25.552 - Pain in left hip] Arthralgia of the left pelvis/hip/femur - Last Documented On 11/25/2023 9:38AM ; [facility] - [M54.9 - Dorsalgia, unspecified] DORSALGIA - Last Documented On 11/25/2023 9:38AM ; [facility] - [M47.897 - Other spondylosis, lumbosacral region] Lumbosacral spondylosis - Last Documented On 11/25/2023 9:38AM ; [facility] - [M48.062 - Spinal stenosis, lumbar region with neurogenic claudication] Lumbar stenosis with neurogenic claudication - Last Documented On 11/25/2023 9:38AM ; [facility] - [M54.17 - Radiculopathy, lumbosacral region] Lumbosacral radiculopathy - Last Documented On 11/25/2023 9:38AM ; [facility] - [G89.29 - Other chronic pain] Chronic pain - Last Documented On 11/25/2023 9:38AM ; [facility] Instructions Includes: Instructions from this encounter Instructions to patient Intervention and counseling on cessation of tobacco use : Patient recieved smoking cessation handout Last Documented On 9:12AM ; [facility] Medical Equipment - Implanted Devices Includes: Current Devices No Medical Equipment Recorded Medications Includes: Medications discussed during this encounter and other current Medications Current Medications (continue as prescribed) Benicar HCT 20-12.5 MG Oral Tablet 02/04/2022 Provid er: Diagnosis: Last Documented On 02/04/2022 2:26PM By Christian GARCIA ; [facility] Ezetimibe 10 MG Oral Tablet 02/04/2022 Provider: Diagnosis: Last Documented On 02/04/2022 2:22PM By Christian GARCIA ; [facility] Past Medications on file Diclofenac Sodium 75 MG Oral Tablet Delayed Release 07/29/2022 - 10/27/2022 Provider: PHANI FARRAR MD Diagnosis: Dorsalgia, unspe cified TAKE ONE TABLET BY MOUTH TWI CE a DAY WITH FOOD AND WATER NEEDED FOR PAIN Last Documented On 07/29/2022 12:37PM By Phani Farrar MD ; [facility] Medications Administered Includes: Administered Medications from this encounter No Administered Medications Recorded Vital Signs Includes: Vital Signs from this encounter Vital Name 11/25/2023 09:24A Blood Pressure Sitting L 148/84 BP Cuff Size Regular Pulse Rate-Sitting (bpm) 85 Pulse Rhythm Regular Respiration Rate (breaths/min) 20 Temp-Tympanic (F) 97.2 Height (in) 69 Weight (lb) 150 Body Mass Index 22.2 Body Surface Area 1.8 Pain Level 1 Oxygen Saturation (%) 99 Last Documented: On 11/25/2023 9:25AM ; [facility] Results Includes: Results discussed during this encounter No Results Recorded For Specified Dates History of Present Illness Includes: History of Present Illness from this encounter HPI PHQ-9 Score: 0 Date:59-03-59XVFOX-R Score: 1 low Date:09-30-23ODI Score: 18 Date:41-43-05Vxqh Location: LOWER BACK L4 L5 LT HIP [...] EPIDURAL AND THAT HELP. DR. BACON IN [place] [facility] ACCU PUNTURE FOR HEADACHES THAT HELPED. HAS SEEN DR.. JESSICA JORGE NEUROSURGEON, SI Joint injections (temporary benefit), LEft hip injection (temporary benefit), Left him branch block (benefit for duration of block and beyond), LEft hip wctRFA (short lived benefit, LEft L3-4, L4-5 TFESI (benefit).Significant improvement in low back and lower extremity symptoms with minimally invasive lumbar decompression bilaterally at the L3 - 4 and L4 - 5 levels. YOEL WELLS is a 77 year old [...] - No vertigo Discussion:Patient returns in follow-up one month after undergoing minimally invasive lumbar decompression. He continues to do significantly better with reduced back and leg pain. He is now completing physical therapy and has advanced quite considerably. He feels much stronger and is eager to get back into a more robust home exercise program. We discussed moderation and slow progression to avoid reinjury. We will wait for him to complete physical therapy and be signed off by physical therapist before returning to a weight training program at his local gym which is what his goals include. Otherwise, will see him back in 3 months to check in on his overall response. If anything new develops he can certainly call us for a sooner appointment. Risks, benefits and alternatives to the above treatment options were discussed in detail the patient who expressed explicit understanding and consent to proceed. Questions were elicited, asked and answered the best of our ability and to his satisfaction today. [place] prescription monitoring database was reviewed and found to be appropriate. PRIOR VISIT (10/29/23): Patient returns in follow-up one week after undergoing minimally invasive lumbar decompression bilaterally at the L3 - 4 and L4 - 5 levels. Although he has some residual low back discomfort, he feels markedly improved and back and leg symptoms. He is able to stand and walk longer with less difficulty. Please this response even a week out. We discussed return to more normal activity of the course of next one to 2 weeks. He can resume driving. He can resume showers but no soaks for one week. We'll see him back in one month after initiate physical therapy to reassess. He understands it may take up to 6 months to see the full effect of the procedure. Wound sites look well-healed. Steri-Strips have discontinued. No evidence of infection, dehiscence or bleeding. Mild ecchymosis as expected around the wound site Risks, benefits and alternatives to the above treatment strategy were discussed in detail the patient who expressed explicit understanding and consent to proceed. Questions were elicited, asked and answered the best of our ability and to his satisfaction today. No new neurologic deficit. No new prescriptions necessary. [place] prescription monitoring database was reviewed and found to be appropriate. Imaging: All relevant imaging available was personally [...] A DAY 02/04/2022 Last Documented On 4 9:02AM ; [facility] No recent change in sleep 02/04/2022 Last Documented On 4 9:02AM ; [facility] Alcohol 02/04/2022 Last Documented On 4 9:02AM ; [facility] Amount of alcohol per day: 2 beers aday 02/04/2022 Last Documented On 4 9:02AM ; [facility] Difficulty walking 02/04/2022 Last Documented On 4 9:02AM ; [facility] Not using drugs 02/04/2022 Last Documented On 4 9:02AM ; [facility] Smoking packs of cigarettes per day 4 ci garettes a day 02/04/2022 Last Documented On 4 9:02AM ; [facility] Smoking Status Unknown Procedures and Surgical History Includes: Procedures from this encounter Procedures Code Diagnosis Performing Provider Service L ocation Service Date intervention and counseling on cessation of tobacco use : Patient recieved smoking cessation handout 4000F Last Documented On 4 9:12AM ; [facility] use of tobacco assessment performed 1000F Last Documented On 4 9:12AM ; [facility] standardized depression screening: negative for symptoms 3351F Last Documented On 4 9:12AM ; [facility] review of medications documented 1160F Last Documented On 4 9:12AM ; [facility] screening for adult depression: impressi on and score 0 Last Documented On 4 9:12AM ; [facility] SOAPP-R: total score 5 Last Documented On 4 9:12AM ; [facility] SOAPP-R: total score 0 Last Documented On 4 9:12AM ; [facility] Surgical History Last Updated No Pacemaker 02/04/2022 Last Documented On 4 9:02AM ; [facility] Surgical / procedural history Nothing ju st medication 02/04/2022 Last Documented On 4 9:02AM ; [facility] Medical History Includes: Medical History addressed during this encounter Description Last Updated Denies a fear of falling. FE LL ON WEDNESDAY LANDED RIGHT ON RT SIDE HURT HAND BUT NOTHING MAJOR 07/15/2023 Last Documented On 4 9:02AM ; [facility] Has had no fall in the last 12 months. 0 02/04/2022 Last Documented On 4 9:02AM ; [facility] Blood pressure was high 02/04/2022 Last Documented On 4 9:02AM ; [facility] Hypertension 02/04/2022 Last Documented On 4 9:02AM ; [facility] No exposure to a contagious disease 01/18 Last Documented On 4 9:02AM ; [facility] No previous psychiatric treatment 2021 Last Documented On 4 9:02AM ; [facility] Not taking OTC medications 02/04/2022 Last Documented On 4 9:02AM ; [facility] Taking medication for high blood pressur e 02/04/2022 Last Documented On 4 9:02AM ; [facility] Acupuncture 02/04/2022 Last Documented On 4 9:02AM ; [facility] team primary care physician 02/04/2022 Last Documented On 4 9:02AM ; [facility] CT/MRI December 2021 for mri and january 2022 0 02/04/2022 Last Documented On 4 9:02AM ; [facility] Currently wearing eyeglasses 02/04/2022 Last Documented On 4 9:02AM ; [facility] Injection/Nerve blocks 02/04/2022 Last Documented On 4 9:02AM ; [facility] Message/Acupressure 02/04/2022 Last Documented On 4 9:02AM ; [facility] Moderate Pain 02/04/2022 Last Documented On 4 9:02AM ; [facility] No Pain Pump 02/04/2022 Last Documented On 4 9:02AM ; [facility] No Spinal cord stimulator 02/04/2022 Last Documented On 4 9:02AM ; [facility] Other method: 02/04/2022 Last Documented On 4 9:02AM ; [facility] Physical therapy 02/04/2022 Last Documented On 4 9:02AM ; [facility] Please list all illnesses/co nditions you have been diagnosed with: High blood pressure and high cholesterol 02/04/2022 Last Documented On 4 9:02AM ; [facility] Please list all surgeries: R otator cuff partial and full. hernia retna and cataracs 02/04/2022 Last Documented On 4 9:02AM ; [facility] Treatment with TENS unit 02/04/2022 Last Documented On 4 9:02AM ; [facility] X-rays October and november 2021 Last Documented On 4 9:02AM ; [facility] Family History Includes: Family History addressed during this encounter Description Last Updated Paternal history of family history of is chemic heart disease 02/04/2022 Last Documented On 4 9:02AM ; [facility] Review of Systems Includes: Review of [...] suzie Last Documented On 4 9:23AM ; [facility] Sulfonamides Allergy Shock 02/04/2022 Active Last Documented On 4 9:23AM ; [facility] Sulfa Antibiotics Allergy Shock 02/04/2022 A ctive Last Documented On 4 9:23AM ; [facility] Statins Allergy 02/04/2022 Active Last Documented On 03/01/2024 9:23AM ; [facility] Note: MUSCLE PAIN Iodinated contrast media Allergy Shortne ss of Breath / Dyspnea 02/04/2022 Active Last Documented On 4 9:23AM ; [facility] Encounters Encounter Provider Location Date Check-In Time Check-Out Time Diagnosis PAIN MANAGEMENT FOLLOW UP PHANI FARRAR MD [facility] 024 8:54AM 9:24AM Osteoarthritis Multiple Sites,Chronic Pain,Spinal Stenosis Lumbar with Neurogenic Claudication,Arth ralgia - Pelvis / Hip / Femur Left,Spondylosis Lumbosacral Region,Radiculopa thy of Lumbosacral Region,Sacroiliit is Left,Dorsalgia Insurance Includes: Active Insurance Policies Plan Name Member ID Group # Subscriber Relationship Effect suzie Dates 1 - [facility]/MEDICARE ADV/A[employer] [id number] YOEL WELLS Self Clinical Notes Includes: Clinical Notes from this encounter * Progress note Date Encounter Last Documented by 11/25/2023 PAIN MANAGEMENT FOLLOW UP Last d ocumented on 11/25/2023; 9:38 AM, PHANI FARRAR MD; [facility] Chief Complaint The Chief Complaint is: Patient is here today for 4-5 week follow up after MILD procedure done on 10/22/23. Patient report 70-80% relief from this procedure. States PT and home exercises are helping a lot. History of Present Illness PHQ-9 Score: 0 Date:09-30-23 SOAPP-R Score: 1 low Date:09-30-23 GABBY Score: 18 Date:11-25-23 Pain Location: LOWER BACK L4 L5 LT [...] EPIDURAL AND THAT HELP. DR. BACON IN [place] [facility] ACCU PUNTURE FOR HEADACHES THAT HELPED. HAS SEEN DR.. JESSICA JORGE NEUROSURGEON, SI Joint injections (temporary benefit), LEft hip injection (temporary benefit), Left him branch block (benefit for duration of block and beyond), LEft hip wctRFA (short lived benefit, LEft L3-4, L4-5 TFESI (benefit).Significant improvement in low back and lower extremity symptoms with minimally invasive lumbar decompression bilaterally at the L3 - 4 and L4 - 5 levels. YOEL WELSL is a 77 year old male. - [...] - No vertigo Discussion:Patient returns in follow-up one month after undergoing minimally invasive lumbar decompression. He continues to do significantly better with reduced back and leg pain. He is now completing physical therapy and has advanced quite considerably. He feels much stronger and is eager to get back into a more robust home exercise program. We discussed moderation and slow progression to avoid reinjury. We will wait for him to complete physical therapy and be signed off by physical therapist before returning to a weight training program at his local gym which is what his goals include. Otherwise, will see him back in 3 months to check in on his overall response. If anything new develops he can certainly call us for a sooner appointment. Risks, benefits and alternatives to the above treatment options were discussed in detail the patient who expressed explicit understanding and consent to proceed. Questions were elicited, asked and answered the best of our ability and to his satisfaction today. [place] prescription monitoring database was reviewed and found to be appropriate. PRIOR VISIT (10/29/23): Patient returns in follow-up one week after undergoing minimally invasive lumbar decompression bilaterally at the L3 - 4 and L4 - 5 levels. Although he has some residual low back discomfort, he feels markedly improved and back and leg symptoms. He is able to stand and walk longer with less difficulty. Please this response even a week out. We discussed return to more normal activity of the course of next one to 2 weeks. He can resume driving. He can resume showers but no soaks for one week. We'll see him back in one month after initiate physical therapy to reassess. He understands it may take up to 6 months to see the full effect of the procedure. Wound sites look well-healed. Steri-Strips have discontinued. No evidence of infection, dehiscence or bleeding. Mild ecchymosis as expected around the wound site Risks, benefits and alternatives to the above treatment strategy were discussed in detail the patient who expressed explicit understanding and consent to proceed. Questions were elicited, asked and answered the best of our ability and to his satisfaction today. No new neurologic deficit. No new prescriptions necessary. [employer] prescription monitoring database was reviewed and found to be appropriate. Imaging: All relevant imaging available was personally [...] Past Medical/Surgical History Reported: Acupuncture, Injection/Nerve blocks, team primary care physician, Treatment with TENS unit, Physical therapy, Message/Acupressure, [...] or sores. Physical Findings - Vitals taken 11/25/2023 09:24 am BP-Sitting L 148/84 mmHg BP Cuff Size Regular Pulse Rate-Sitting 85 bpm Pulse Rhythm Regular Respiration Rate 20 per min Temp-Tympanic 97.2 F Height 69 in Weight 150 lbs Body Mass Index 22.2 kg/m2 Body Surface Area 1.8 m2 Pain Level 1 Oxygen Saturation 99 % Vital Signs: - Pain level by numeric rating scale 4. Musculoskeletal System: General/bilateral: Lumbar oswestry score: Value Lumbar oswestry score 18 Lumbar oswestry score 22 Psychiatric: Psychiatric: Value PHQ9 score: 0 HEENT: [...] Gaenslen's maneuver on the left for buttock pain.Small stab incisions in the bilateral low back without evidence of infection or bleeding. Mild ecchymosis around the incision site. Gait: Moderately antalgic. No steppage gait. No Trendelenburg gait. No circumspected gait pattern. Heel walk normal. Toe walk normal. Tandem gait normal. Neuro: Awake. Alert. Oriented x3. DTR's intact in all extremities. DTR's equal in all extremities. No focal neurologic deficit. [id number] normal bilaterally. Babinski downgoing. Psych: No apparent [...] [G89.29 - Other chronic pain] Chronic pain Therapy - Intervention and counseling on cessation of tobacco use: Patient recieved smoking cessation handout. Discussed The preoperative H & P is done today in the office. No major problems are found. We will proceed with surgical intervention accordingly. Plan Patient will continue with physical therapy as planned. He is off all analgesic medications. Can escalate his care as tolerated. Eventually patient will graduate to home exercise program. I've encouraged some level of restraint to avoid reinjury. Certainly movement based exercise such as matty chi or yoga can be considered as he has experience with this. We'll see him back in 3 months. That time if he is doing well we consider the release him to follow-up as needed. Practice Management Use of tobacco assessment performed Review of medications documented; Standardized depression screening: negative for symptoms and for adult impression and score 0. A total of 27 minutes were spent on this patient's evaluation, as above, with greater than 50% of this time spent in direct [id number] counseling and coordination of care. Results of [...] but may be subject to typographical or manager domestic errors. Verify all diagnoses, medications, dosages, and patient instructions with patient and/or the originator of this document. Care Team - KAI BUSCH - Internal Medicine - PHANI FARRAR MD - Pain Medicine Health Reminders - Assess BMI satisfied 11/25/2023. - Assess Tobacco Use satisfied 11/25/2023. - Depression Screening satisfied 11/25/2023. - Follow up plan for Depression Screening satisfied 11/25/2023. - Smoking & Tobacco Cessation Intervention and Counseling satisfied 11/25/2023.
--- OUTSIDE RECORDS SUMMARY | 2025-01-03 00:21 | XMS_ITS | Clinical Summary ---
Author Organization [facility] Address [address] [place] [address] Phone Care Team Providers Care Mattress And Boxsprings Supervisor Name Role Phone KAI BUSCH Unavailable [phone] KIMBERLEE CHRIS, PHANI Kraus Unavailable [phone] Reason for Visit and Chief Complaint The Chief Complaint is: Patient is here today for 1 week follow up after MILD procedure done on 10/22/23 Plan of Treatment Patient will continue with physical therapy as planned. We'll see him back in one month for reevaluation. - Last Documented On 10/29/2023 6:27PM ; [facility] Pending Tests Order Diagnosis Results Due Ordering P rovider Pain Management CPT MILD Procedure Spinal steno sis, lumbar region with neurogenic claudication 07/17/23 PHANI FARRAR MD Last Documented On 4 7:07AM ; [facility] Instructions to patient Intervention and counseling on cessation of tobacco use : Patient recieved smoking cessation handout Last Documented On 4 4:31PM ; [facility] Assessments Includes: Assessments from this encounter Findings - [M19.90 - Unspecified osteoarthritis, unspecified site] Osteoarthritis of multiple sites - Last Documented On 10/29/2023 6:27PM ; [facility] - [M46.1 - Sacroiliitis, not elsewhere classified] Left sacroiliitis - Last Documented On 10/29/2023 6:27PM ; [facility] - [M25.552 - Pain in left hip] Arthralgia of the left pelvis/hip/femur - Last Documented On 10/29/2023 6:27PM ; [facility] - [M54.9 - Dorsalgia, unspecified] DORSALGIA - Last Documented On 10/29/2023 6:27PM ; [facility] - [M47.897 - Other spondylosis, lumbosacral region] Lumbosacral spondylosis - Last Documented On 10/29/2023 6:27PM ; [facility] - [M48.062 - Spinal stenosis, lumbar region with neurogenic claudication] Lumbar stenosis with neurogenic claudication - Last Documented On 10/29/2023 6:27PM ; [facility] - [M54.17 - Radiculopathy, lumbosacral region] Lumbosacral radiculopathy - Last Documented On 10/29/2023 6:27PM ; [facility] - [G89.29 - Other chronic pain] Chronic pain - Last Documented On 10/29/2023 6:27PM ; [facility] Instructions Includes: Instructions from this encounter Instructions to patient Intervention and counseling on cessation of tobacco use : Patient recieved smoking cessation handout Last Documented On 4:31PM ; [facility] Medical Equipment - Implanted Devices Includes: Current Devices No Medical Equipment Recorded Medications Includes: Medications discussed during this encounter and other current Medications Current Medications (continue as prescribed) Benicar HCT 20-12.5 MG Oral Tablet 02/04/2022 Provid er: Diagnosis: Last Documented On 02/04/2022 2:26PM By Christian GARCIA ; [facility] Ezetimibe 10 MG Oral Tablet 02/04/2022 Provider: Diagnosis: Last Documented On 02/04/2022 2:22PM By Christian GARCIA ; [facility] Past Medications on file Diclofenac Sodium 75 MG Oral Tablet Delayed Release 07/29/2022 - 10/27/2022 Provider: PHANI FARRAR MD Diagnosis: Dorsalgia, unspe cified TAKE ONE TABLET BY MOUTH TWI CE a DAY WITH FOOD AND WATER NEEDED FOR PAIN Last Documented On 07/29/2022 12:37PM By Phani Farrar MD ; [facility] Medications Administered Includes: Administered Medications from this encounter No Administered Medications Recorded Vital Signs Includes: Vital Signs from this encounter Vital Name 10/29/2023 04:32P Blood Pressure Sitting L 124/82 BP Cuff Size Regular Pulse Rate-Sitting (bpm) 66 Pulse Rhythm Regular Respiration Rate (breaths/min) 66 Temp-Oral (F) 98.1 Height (in) 69 Weight (lb) 147 Body Mass Index 21.7 Body Surface Area 1.8 Pain Level 1 Oxygen Saturation (%) 94 Last Documented: On 10/29/2023 4:32PM ; [facility] Results Includes: Results discussed during this encounter No Results Recorded For Specified Dates History of Present Illness Includes: History of Present Illness from this encounter HPI PHQ-9 Score: 0 Date:09-23-22BPI Score: Date:GABBY Score: 22 Date:SOAPP-R Score: 0 low Date:16-43-10Ybgt Location: LOWER BACK L4 L5 LT HIP [...] EPIDURAL AND THAT HELP. DR. BACON IN [place] CHIROPRACTOR ACCU PUNTURE FOR HEADACHES THAT HELPED. [...] No vertigo Discussion:Patient returns in follow-up one week after undergoing [...] new neurologic deficit. No new prescriptions necessary. [place] prescription monitoring database was reviewed and [...] A DAY 02/04/2022 Last Documented On 4 4:29PM ; [facility] No recent change in sleep 02/04/2022 Last Documented On 4 4:29PM ; [facility] Alcohol 02/04/2022 Last Documented On 4 4:29PM ; [facility] Amount of alcohol per day: 2 beers aday 02/04/2022 Last Documented On 4 4:29PM ; [facility] Difficulty walking 02/04/2022 Last Documented On 4 4:29PM ; [facility] Not using drugs 02/04/2022 Last Documented On 4 4:29PM ; [facility] Smoking packs of cigarettes per day 4 ci garettes a day 02/04/2022 Last Documented On 4 4:29PM ; [facility] Smoking Status Unknown Procedures and Surgical History Includes: Procedures from this encounter Procedures Code Diagnosis Performing Provider Service L ocation Service Date intervention and counseling on cessation of tobacco use : Patient recieved smoking cessation handout 4000F Last Documented On 4 4:31PM ; [facility] use of tobacco assessment performed 1000F Last Documented On 4 4:29PM ; [facility] standardized depression screening: negative for symptoms 3351F Last Documented On 4 4:29PM ; [facility] review of medications documented 1160F Last Documented On 4 4:29PM ; [facility] screening for adult depression: impressi on and score 0 Last Documented On 4 4:29PM ; [facility] SOAPP-R: total score 5 Last Documented On 4 4:29PM ; [facility] SOAPP-R: total score 0 Last Documented On 4 4:29PM ; [facility] Surgical History Last Updated No Pacemaker 02/04/2022 Last Documented On 4 4:29PM ; [facility] Surgical / procedural history Nothing ju st medication 02/04/2022 Last Documented On 4 4:29PM ; [facility] Medical History Includes: Medical History addressed during this encounter Description Last Updated Denies a fear of falling. 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 0 02/04/2022 Last Documented On 4 4:29PM ; [facility] Blood pressure was high 02/04/2022 Last Documented On 4 4:29PM ; [facility] Hypertension 02/04/2022 Last Documented On 4 4:29PM ; [facility] No exposure to a contagious disease 01/18 Last Documented On 4 4:29PM ; [facility] No previous psychiatric treatment 2021 Last Documented On 4 4:29PM ; [facility] Not taking OTC medications 02/04/2022 Last Documented On 4 4:29PM ; [facility] Taking medication for high blood pressur e 02/04/2022 Last Documented On 4 4:29PM ; [facility] Acupuncture 02/04/2022 Last Documented On 4 4:29PM ; [facility]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 Last Documented On 4 4:29PM ; [facility] CT/MRI December 2021 for mri and january 2022 0 02/04/2022 Last Documented On 4 4:29PM ; [facility] Currently wearing eyeglasses 02/04/2022 Last Documented On 4 4:29PM ; [facility] Injection/Nerve blocks 02/04/2022 Last Documented On 4 4:29PM ; [facility] Message/Acupressure 02/04/2022 Last Documented On 4 4:29PM ; [facility] Moderate Pain 02/04/2022 Last Documented On 4 4:29PM ; [facility] No Pain Pump 02/04/2022 Last Documented On 4 4:29PM ; [facility] No Spinal cord stimulator 02/04/2022 Last Documented On 4 4:29PM ; [facility] Other method: 02/04/2022 Last Documented On 4 4:29PM ; [facility] Physical therapy 02/04/2022 Last Documented On 4 4:29PM ; [facility] Please list all illnesses/co nditions you have been diagnosed with: High blood pressure and high cholesterol 02/04/2022 Last Documented On 4 4:29PM ; [facility] Please list all surgeries: R otator cuff partial and full. hernia retna and cataracs 02/04/2022 Last Documented On 4 4:29PM ; [facility] Treatment with TENS unit 02/04/2022 Last Documented On 4 4:29PM ; [facility] X-rays October and november 2021 2 Last Documented On 4 4:29PM ; [facility] Family History Includes: Family History addressed during this encounter Description Last Updated Paternal history of family history of is chemic heart disease 02/04/2022 Last Documented On 4 4:29PM ; [facility] Review of Systems Includes: Review of Systems [...] suzie Last Documented On 4 9:23AM ; [facility] Sulfonamides Allergy Shock 02/04/2022 Active Last Documented On 4 9:23AM ; [facility] Sulfa Antibiotics Allergy Shock 02/04/2022 A ctive Last Documented On 4 9:23AM ; [facility] Statins Allergy 02/04/2022 Active Last Documented On 03/01/2024 9:23AM ; [facility] Note: MUSCLE PAIN Iodinated contrast media Allergy Shortne ss of Breath / Dyspnea 02/04/2022 Active Last Documented On 4 9:23AM ; [facility] Encounters Encounter Provider Location Date Check-In Time Check-Out Time Diagnosis PAIN MANAGEMENT FOLLOW UP PHANI FARRAR MD [facility] 024 4:02PM 4:46PM Osteoarthritis Multiple Sites,Chronic Pain,Spinal Stenosis Lumbar with Neurogenic Claudication,Arth ralgia - Pelvis / Hip / Femur Left,Spondylosis Lumbosacral Region,Radiculopa thy of Lumbosacral Region,Sacroiliit is Left,Dorsalgia Insurance Includes: Active Insurance Policies Plan Name Member ID Group # Subscriber Relationship Effect suzie Dates 1 - [facility]/MEDICARE ADV/AARP [id number] PRISCILLA Self Clinical Notes Includes: Clinical Notes from this encounter * Progress note Date Encounter Last Documented by 10/29/2023 PAIN MANAGEMENT FOLLOW UP Last d ocumented on 10/29/2023; 6:27 PM, PHANI FARRAR MD; [facility] Chief Complaint The Chief Complaint is: Patient is here today for 1 week follow up after MILD procedure done on 10/22/23. History of Present Illness PHQ-9 Score: 0 Date:09-23-22 BPI Score: Date: GABBY Score: 22 Date: SOAPP-R Score: 0 low Date:09-23-22 Pain [...] EPIDURAL AND THAT HELP. DR. BACON IN [place] CHIROPRACTOR ACCU PUNTURE FOR HEADACHES THAT HELPED. [...] No vertigo Discussion:Patient returns in follow-up one week after undergoing [...] new neurologic deficit. No new prescriptions necessary. 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 Physical Findings - Vitals taken 10/29/2023 04:32 pm BP-Sitting L 124/82 mmHg BP Cuff Size Regular Pulse Rate-Sitting 66 bpm Pulse Rhythm Regular Respiration Rate 66 per min Temp-Oral 98.1 F Height 69 in Weight 147 lbs Body Mass Index 21.7 kg/m2 Body Surface Area 1.8 m2 Pain Level 1 Oxygen Saturation 94 % Vital Signs: - Pain level by [...] in all extremities. No focal neurologic deficit. Alcm-kb-veja normal bilaterally. Babinski downgoing. Psych: No apparent [...] will continue with physical therapy as planned. We'll see him back in one month for reevaluation. Practice Management Use of tobacco assessment performed Review of medications documented; Standardized depression screening: negative for symptoms and for adult impression and score 0. A total of 26 minutes were spent on this patient's evaluation, as above, with greater than 50% of this time spent in direct [id number] counseling and coordination of care. Results of [...] but may be subject to typographical or mold injector errors. Verify all diagnoses, medications, dosages, and patient instructions with patient and/or the originator of this document. Care Team - KAI BUSCH - Internal Medicine - PHANI FARRAR MD - Pain Medicine Health Reminders - Assess BMI satisfied 10/29/2023. - Assess Tobacco Use satisfied 10/29/2023. - Depression Screening satisfied 10/29/2023. - Follow up plan for Depression Screening satisfied 10/29/2023. - Smoking & Tobacco Cessation Intervention and Counseling satisfied 10/29/2023.
--- OUTSIDE RECORDS SUMMARY | 2025-01-03 00:21 | XMS_ITS | Clinical Summary ---
Author Organization [facility] Address [address], [address] [address] Phone Care Team Providers Care Nailer Hand Name Role Phone Tr Us MD Primary Care Provider [phone] Allergies Active Allergy Reactions Criticality Noted Date Comments Sulfa Antibiotics Anaphylaxis High 10/12/2018 Medications doxycycline hyclate (VIBRAMYCIN) 100 MG Capsule Take 100 mg by mouth 2 times daily. For 10 days Active olmesartan (BENICAR) 20 MG Tablet Take 20 mg by mouth daily. Active ezetimibe (ZETIA) 10 MG Tablet Take 10 mg by mouth daily. Active Active Problems Problem Noted Date Diagnosed Date Skin lesion 10/18/2018 Family History Medical History Relation Name Comments No Known Problems Brother Heart Attack Father No Known Problems Maternal Grandfather Cancer Maternal Grandmother Alzheimer's Disease Mother No Known Problems Other No Known Problems Paternal Grandfather No Known Problems Paternal Grandmother No Known Problems Sister Relation Name Status Comments Brother Father Maternal Grandfather Maternal Grandmother Mother Other Paternal Grandfather Paternal Grandmother Sister Social History Tobacco Use Types Packs/Day Years Used Date Smoking Tobacco: Every Day Cigarettes Smokeless Tobacco: Never Tobacco Cessation:Ready to Q uit: No; Counseling Given: Yes Comments:5-6 Cigarettes a day Alcohol Use Standard Drinks/Week Comments Yes 14 (1 standard drink = 0.6 oz pu re alcohol) Sex and Gender Information Value Date Recorded Sex Assigned at Not on file Legal Sex Male 5:38 PM CDT Gender Identity Not on file Sexual Orientation Not on file Last Filed Vital Signs Vital Sign Reading Time Taken Comments Blood Pressure 102/72 10/26/2018 1:20 PM REPRINT SORTER Pulse 85 10/26/2018 1:20 PM REPRINT SORTER Temperature 36.3 C (97.3 F) 10/26/2018 1:20 PM REPRINT SORTER Respiratory Rate 17 10/26/2018 1:20 PM REPRINT SORTER Oxygen Saturation 96% 10/26/2018 1:20 PM REPRINT SORTER Inhaled Oxygen Concentration - - Weight 67.6 kg (149 lb) 10/26/2018 1:20 PM REPRINT SORTER Height 175.3 cm (5' 9 ) 10/26/2018 1:20 PM REPRINT SORTER Body Mass Index 22 10/26/2018 1:20 PM REPRINT SORTER Plan of Treatment Health Maintenance Due Date Last Done Comments Hepatitis C Virus (HCV) Screening 1945 TdaP Immunization 1945 Zoster Immunization (1 of 2) 12/23/1997 Respiratory Syncytial Virus (RSV) Immunization (Adult) (1 - 1-dose 75+ series) 12/23/2022 Influenza Immunization (#1) 05/21/202406/20, 07/17/2021, 07/17/2020, Additional history exists SARS-COV-2 Immunization ( season) 2024 07/06/2022, 08/21/2021, 01/21/2021, Additional history exists Pneumococcal Immunization (50+ years) Completed 06/29/2018, 05/21/2017 Pneumococcal Immunization Combined Discontinued 06/29/2018, 05/21/2017 Hepatitis B Immunization Aged Out No longer eligible based on patient's age to complete this topic Meningococcal Immunization (ACWY) Aged Out No longer eligible based on patient's age to complete this topic Rotavirus Immunization Aged Out No lo nger eligible based on patient's age to complete this topic Insurance [facility]IC[facility] [place] [id number] Care Teams Nailer Hand Relationship Specialty Start Date End Date Tr Us MD [address], [address] [place] [address] PCP - General Infectious Disease 10/12/18
--- OUTSIDE RECORDS SUMMARY | 2025-01-03 00:22 | XMS_ITS | Encounter Summary ---
Author Organization [facility] Address [address] [place] [address] Care Team Providers Care Dope Firer Name Role Phone Tr Us MD Primary Care Provider [phone] Brian Nascimento MD Unavailable [phone] Nayely Huntley MD Unavailable [phone] Kamron Rey MD Unavailable [phone] Faustino Mendiola MD Unavailable [phone] Bob Ocasio MD Unavailable [phone] Aki Mcgill Ud, MD Unavailable Phani Farrar MD Unavailable [phone] Manjinder Nascimento MD Unavailable [phone] Curt Reyes MD Unavailable [phone] Encounter Details Date Type Department Care Team (Late st Contact Info) Description 11/18/2024 Results Follow-Up [facility] [address] [place] [address] Tr Us MD [address] [place] [address] Social History Tobacco Use Types Packs/Day Years Used Date Smoking Tobacco: Some Days Cigarettes 0.5 61 Started: 12/20/1961 Smokeless Tobacco: Never Alcohol Use Standard Drinks/Week Comments Yes 1 (1 standard drink = 0.6 oz pur e alcohol) daily AUDIT-C Answer Date Recorded Q1: How often do you have a drink containing alc ohol? 2-4 times a month 05/25/2023 Q2: How many drinks containi ng alcohol do you have on a typical day when you are drinking? 3 or 4 05/25/2023 Frequency of Binge Drinking Not on file 01/2023 PHQ-2 Answer Date Recorded PHQ-2 Total Score (If total score is 3 or more points, staff should administer the PHQ-9) 0 10/25/2024 Sex and Gender Information Value Date Recorded Sex Assigned at Not on file Legal Sex Male 12:14 AM NUDE MODEL Gender Identity Not on file Sexual Orientation Not on file Occupation Industry Job Start Date Job End Date retired Not on file Not on file Not on file documented as of this encounter Plan of Treatment Not on file documented as of this encounter Visit Diagnoses Not on filedocumented in this encounter Care Teams Dope Firer Relationship Specialty Start Date End Date Tr Us MD [address] [place], [place] [id number] PCP - General Infectious Diseases 05/21/17 Brian Nascimento MD [address] [place] [address] Consulting Physician Urology 05/21/11 Nayely Huntley MD [address] [place] [address] Consulting Physician Ophthalmology 05/21/17 Kamron Rey MD [address] [place] [address] Consulting Physician Anesthesiology 05/21/17 Faustino Mendiola MD [address] [place] [address] Consulting Physician Gastroenterology 06/28/17 Bob Ocasio MD [address] [facility] [address] [place] [address] Consulting Physician Orthopedic Surgery 11/18/21 Aki Mcgill Ud, MD [address] [place] [address] [address] [place] [address] Consulting Physician Surgery 12/22/21 [place] [address] [place] [address] [address] [place] [address] Consulting Physician Pain Management 03/16/22 Manjinder Nascimento MD [address] [facility] [address] [place] [address] Surgeon Orthopedic Surgery 12/18/22 Curt Reyes MD [address] [place] [address] Consulting Physician Otolaryngology 05/23/23 documented as of this encounter
--- OUTSIDE RECORDS SUMMARY | 2025-01-03 00:22 | XMS_ITS | Encounter Summary ---
Author Organization [facility] Address [address] [place] [address] Phone Care Team Providers Care Cash Controller Name Role Phone Tr Us MD Primary Care Provider Brian Nascimento MD Unavailable [phone] Nyaely Huntley MD Unavailable [phone] Kamron Rey MD Unavailable [phone] Faustino Mendiola MD Unavailable [phone] Bob Ocasio MD Unavailable [phone] Aki Mcgill Ud, MD Unavailable Phani Farrar MD Unavailable [phone] Manjinder Nascimento MD Unavailable [phone] Curt Reyes MD Unavailable [phone] Curt Reyes MD Unavailable [phone] Encounter Details Date Type Department Care Team (Late st Contact Info) Description 08/20/2021 Orders Only [facility] [address] [place] [address] Tr Us MD [address] [place] [address] Social History Tobacco Use Types Packs/Day Years Used Date Smoking Tobacco: Some Days Cigarettes 0.5 61 Started: 12/20/1961 Smokeless Tobacco: Never Alcohol Use Standard Drinks/Week Comments Yes 1 (1 standard drink = 0.6 oz pur e alcohol) daily PHQ-2 Answer Date Recorded PHQ-2 Total Score (If total score is 3 or more points, staff should administer the PHQ-9) 0 07/17/2021 Sex and Gender Information Value Date Recorded Sex Assigned at Not on file Legal Sex Male 12:14 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 Gender Identity Not on file Sexual Orientation Not on file documented as of this encounter Plan of Treatment Not on file documented as of this encounter Procedures Procedure Name Priority Date/Time Associated Diagnosis Comments SCAN - RADIOLOGY/IMAGING 08/20/2021 documented in this encounter Results * SCAN - RADIOLOGY/IMAGING (08/20/2021) Anatomical Region Laterality Modality Other Tr Us MD Final Result documented in this encounter Visit Diagnoses Not on filedocumented in this encounter Additional Health Concerns Infection Onset Date Last Indicated Resolved Time COVID: Suspected 09/17/2022 09/17/2022 09/17/2022 3:39 PM AUTO 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 Influenza, adult 09/17/2022 09/17/2022 09/24/2022 3:05 AM AUTO 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 documented as of this encounter Care Teams Cash Controller Relationship Specialty Start Date End Date Tr Us MD [address] [place] [address] PCP - General Infectious Diseases 05/21/17 Brian Nascimento MD [address] [facility] [address] [place] [address] Consulting Physician Urology 05/21/11 Nayely Huntley MD [address] [place] [address] Consulting Physician Ophthalmology 05/21/17 Kamron Rey MD [address] [address] Consulting Physician Anesthesiology 05/21/17 Faustino Mendiola MD [address] [address] Consulting Physician Gastroenterology 06/28/17 Bob Ocasio MD [address] [facility] [address] [address] Consulting Physician Orthopedic Surgery 11/18/21 Aki Mcgill Ud, MD [facility] [facility] [address] [place] [address] Consulting Physician Surgery 12/22/21 Phani Farrar MD [facility] [facility] [address] [place] [address] Consulting Physician Pain Management 03/16/22 Manjinder Nascimento MD [address] [facility] [address] [place] [address] Surgeon Orthopedic Surgery 12/18/22 Curt Reyes MD [address] [place] [address] Consulting Physician Otolaryngology 05/23/23 Curt Reyes MD [address] [place] [address] Consulting Physician Otolaryngology 06/04/23 09/13/23 documented as of this encounter
--- OUTSIDE RECORDS SUMMARY | 2025-01-03 00:22 | XMS_ITS | Encounter Summary ---
Author Organization [facility] Healthcare Address [address] [place] [address] Care Team Providers Care Admissions Gate Attendant Name Role Phone Tr Us MD Primary Care Provider Brian Nascimento MD Unavailable [phone] Nayely Huntley MD Unavailable [phone] Kamron Rey MD Unavailable [phone] Faustino Mendiola MD Unavailable [phone] Bob Ocasio MD Unavailable [phone] Aki Mcgill Ud, MD Unavailable Phani Farrar MD Unavailable [phone] Manjinder Nascimento MD Unavailable [phone] Curt Reyes MD Unavailable [phone] Encounter Details Date Type Department Care Team (Late st Contact Info) Description 12/11/2024 Results Follow-Up [facility] [address] [place] [address] Tr Us MD [address] [place] [address] Social History Tobacco Use Types Packs/Day Years [...] on file Legal Sex Male 12:14 AM 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 Gender Identity Not on file Sexual Orientation Not on file Occupation Industry Job Start Date Job End Date retired Not on file Not on file Not on file documented as of this encounter Plan of Treatment Not on file documented as of this encounter Visit Diagnoses Not on filedocumented in this encounter Care Teams Admissions Gate Attendant Relationship Specialty Start Date End Date Tr Us MD [address] [facility] [address] [place], [place] [id number] PCP - General Infectious Diseases 05/21/17 Brian Nascimento MD [address] [place] [address] Consulting Physician Urology 05/21/11 Nayely Huntley MD [address] [place] [address] Consulting Physician Ophthalmology 05/21/17 Kamron Rey MD [address] [place] [address] Consulting Physician Anesthesiology 05/21/17 Faustino Mendiola MD [address] [place] [address] Consulting Physician Gastroenterology 06/28/17 Bob Ocasio MD [address] [facility] [address] [facility] [address] [place] [address] Consulting Physician Orthopedic Surgery 11/18/21 Aki Mcgill Ud, MD [address] [place] [address] DR [facility] [place] [address] Consulting Physician Surgery 12/22/21 [place] [address] [place] [address] DR [facility] [place] [address] Consulting Physician Pain Management 03/16/22 Manjinder Nascimento MD [address] [facility] [address] [place] [address] Surgeon Orthopedic Surgery 12/18/22 Curt Reyes MD [address] [place] [address] Consulting Physician Otolaryngology 05/23/23 documented as of this encounter
--- OUTSIDE RECORDS SUMMARY | 2025-01-03 00:22 | XMS_ITS | Referral Summary ---
Author Organization [facility] [address] Address [address] [place] [address] Phone Care Team Providers Care Rn Navigator Name Role Phone Tr Us MD Primary Care Provider [phone] Brian Nascimento MD Unavailable [phone] Nayely Huntley MD Unavailable [phone] Kamron Rey MD Unavailable [phone] Faustino Mendiola MD Unavailable [phone] Bob Ocasio MD Unavailable [phone] Aki Mcgill Ud, MD Unavailable Phani Farrar MD Unavailable [phone] Manjinder Nascimento MD Unavailable [phone] Curt Reyes MD Unavailable [phone] Encounters Date Type Department Care Team Description 12/11/2024 Results Follow-Up [facility] [address] [place] [address] rT Us MD 12/11/2024 Orders Only [facility] Health Information Management [address] [place] [address] Tr Us MD 11/18/2024 Telephone [facility] [address] [place] [address] Tr Us MD 11/18/2024 Results Follow-Up [facility] [address] [facility] [address] [place] [address] Tr Us MD 11/14/2024 4:26 PM SUPPLY CHAIN PROCUREMENT MANAGER - 11/14/2024 11:59 PM SUPPLY CHAIN PROCUREMENT MANAGER Hospital Encounter [address] [address] Nicotine dependence, cigarettes, uncomplicated Discharge Disposition: Discharge to home or self care 11/10/[address] [address] Chloe Zhang RN 10/26/2024 ACO Quality [facility] Accountable Care Organization [address] [place] [id number] Jessenia Bell 10/25/2024 9:00 AM SUPPLY CHAIN PROCUREMENT MANAGER Office Visit [facility] Medical [facility] [address] [facility] [address] [place] [address] Tr Us MD Medicare annual wellness visit, subsequent (Primary Dx); Essential hypertension; Mixed hyperlipidemia; Benign prostatic hyperplasia with urinary frequency; Elevated PSA; Primary osteoarthritis involving multiple joints; Aneurysm of ascending aorta without rupture; Tobacco use disorder; Nodule of left lung; Other atopic dermatitis; Other constipation; Nicotine dependence, cigarettes, uncomplicated 10/18/2024 9:40 AM SUPPLY CHAIN PROCUREMENT MANAGER Lab [facility] [address] [facility] [address] [place] [address] Benign prostatic hyperplasia with urinary frequency; Prostate cancer screening; Need for hepatitis B screening test from Last 3 Months Allergies Active Allergy Reactions Criticality Noted Date Comments Madafih-Zxx-Vjl Reductase Inhibitors Muscle pain Medium 01/31/2021 Muscle pain and weakness despite working out every day. Sulfa (Sulfonamide Antibiotics) Anaphylaxis High 12/22/2021 Sulfanilamide Anaphylaxis High Tetanus Vaccines And Toxoid Unknown Medications min17/nettle/pumpk in/saw palme (PROSTATE THERAPY ORAL) Take by mouth Active olmesartan-hydroch lorothiazide (BENICAR HCT) 20-12.5 mg per tabletIndications: Essential hypertension TAKE ONE (1) TABLET BY MOUTH DAILY 90 tablet 4 Active clobetasoL (TEMOVATE) 0.05 % creamIndications:R orlando Apply topically as needed (rash) 4 Active aspirin 81 mg chewable tablet Take 1 tablet (81 mg total) by mouth daily 4 Active ezetimibe (ZETIA) 10 mg tabletIndications: Mixed hyperlipidemia TAKE ONE (1) TABLET BY MOUTH EVERY DAY 90 tablet 1 4 Active cetirizine (ZyrTEC) 10 mg tablet Take 1 tablet (10 mg total) by mouth daily 4 Active guaiFENesin ER (MUCINEX) 600 mg 12 hr tablet Take 2 tablets (1,200 mg total) by mouth nightly 4 Active polyethylene glycol (MIRALAX) 17 gram/dose bulk powderIndications: constipation Take 8 g by mouth daily 5 Active Active Problems Problem Noted Date Diagnosed Date Other constipation 09/20/2024 Assessment & Plan (10/25/2024 9:22 AM SUPPLY CHAIN PROCUREMENT MANAGER): New problem, resolved with polyethylene glycol, follow up colonoscopy planned at [facility] December 29. Subacute cough 07/05/2024 Assessment & Plan (07/23/2024 6:26 PM SUPPLY CHAIN PROCUREMENT MANAGER): Acute problem, uncontrolled. He started coughing about two weeks ago and attributes some of it to postnasal drainage from a flare of his allergies. The drainage is purulent in appearance indicating a probable associated sinus infection. He typically responds to a Z-Balta which we sent to his pharmacy. We did encourage him to quit smoking. Bilateral carotid artery stenosis 10/21/2023 Overview (12/27/2023): Had a screening at [facility], peak velocity 64 m/s on left and 73 m/sec on right. Assessment & Plan (04/09/2024 11:26 AM CDT): Chronic, not critical, now taking cholesterol medicine and a low-dose aspirin to reduce risk. He is tolerating things well. Continue same. Assessment & Plan (12/27/2023 8:50 PM CDT): There was a health screening at [facility] two months ago. They reported moderate bilateral carotid artery stenosis based on increased velocities. We will get carotid Dopplers to reassess. We discussed possible daily aspirin therapy depending on the results. He already takes Zetia but he does not tolerate statins. Gallstone 10/21/2023 Overview (12/27/2023): Asymptomatic, seen on [employer] screen at [facility]. Assessment & Plan (12/27/2023 11:16 AM CDT): His [facility] had a health screening and they found a 1.5 cm gallstone which is asymptomatic. We discussed management of asymptomatic gallstones and we will monitor clinically. Dysfunction of both eustachian tubes 05/26/2023 Assessment & Plan (06/29/2023 8:45 PM CDT): His left ear looks pretty stable and the drum is back to normal anatomic position with a small healing posterior perforation. I do not see significant problems otherwise. I recommended keeping the ear dry. I would like to have him follow up in about 3 months for re-evaluation. He is agreeable with that. Assessment & Plan (05/26/2023 7:40 AM CDT): He has some evidence of eustachian tube dysfunction on both sides manifested as abnormal tympanograms. I am not sure this is really contributing significantly to his hearing loss. I recommended a myringotomy left to try to determine how much impact it was having. He wanted to go ahead and do that. It was done without much difficulty although he did have a film of debris overlying the tympanic membrane that had to be addressed. I recommended that he keep his left ear dry. Follow up in a month. I am also going to give him a steroid pack to see if that helps. It may also help with the sensorineural portion on the left. He understands. 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 His discrimination score has come up on the left side which I explained was good because it would make him a better candidate for a hearing aid. We talked about hearing aids quite a bit. They would like to go ahead and pursue that. They will check with insurance for potential coverage. I indicated that if there is any significant change in his hearing I would like to see him back for evaluation. They understand and have no questions. Assessment & Plan (09/27/2023 1:10 PM SUPPLY CHAIN PROCUREMENT MANAGER): He still has trouble hearing from the left ear. He sees Dr. Reyes soon for a follow-up. A tympanostomy tube might be placed. Assessment & Plan (06/29/2023 8:47 PM CDT): He feels like the hearing has improved in both ears but he still notices significant difficulty on the left. The CT scan was negative. He still has a relatively poor discrimination score on the left. I think he might benefit from hearing aid and we talked about that. He is not sure he wants to pursue that just yet. I suggested repeating the steroid pack with a follow-up in about 3 months to retest. Otherwise I did not really have a whole lot more to offer. He understands. He is agreeable with that. Assessment & Plan (05/26/2023 7:41 AM CDT): He has bilateral sensorineural hearing loss but it is much worse on the left side. Could be a sudden idiopathic loss. I am treating him a steroid pack. I also do some imaging. In his case can not tolerate so we are going CT scan. He understands the resolution is not quite as good.. We are going to re-evaluate him when I see 1 month with another audiogram. Other atopic dermatitis 04/30/2023 Assessment & Plan (10/31/2024 6:49 AM SUPPLY CHAIN PROCUREMENT MANAGER): Chronic/intermittent, noted about 18 months ago, responds to topical steroid used as needed. Assessment & Plan (04/30/2023 1:22 PM CDT): Rash appeared 4 days ago after cutting down tree, assessment as noted above. Likely allergic in nature. Rxd clobetasol cream as directed. Advised calamine or Ivyrest with antihistamine. Use Benedryl or zyrtec as needed for itching. Keep skin clean and dry. Call if not resolved in 1 week. Discharge of right eye 03/04/2023 Assessment & Plan (03/10/2023 9:24 AM CDT): He was in the office last week with a discharge from the right eye. He went to see his eye doctor and they discontinued the erythromycin ointment, gave him TobraDex which has cleared up the infection. He has a follow-up in their office this morning. Assessment & Plan (03/27/2023 4:53 PM CDT): He had some irritation in his right eye yesterday. 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 This morning he woke up with a greenish discharge. He had to rinse the eye out with lubricating drops which he uses on a regular basis. He denies pain or photophobia. On exam, visual acuity is probably at his baseline. There is no photophobia. There is moderate palpebral conjunctivitis of the right eye. There is no discharge at this time. There is no foreign body under the upper or lower eyelid. We swabbed the eye for a culture. We will try some erythromycin ophthalmic. Return as scheduled in abou five days. I recommended that he find a new eye doctor (his former eye doctor retired) for appropriate follow-up if he is not improving. Left ear hearing loss 03/04/2023 Assessment & Plan (06/14/2023 10:26 AM CDT): He started to notice left ear hearing loss about three months ago. Exam today shows some posterior left TM inflammation and what appeared to be grouped small perforations. There is no drainage at this time. He saw a specialist (Curt Reyes, ENT) earlier this month who prescribed a Medrol Dosepak and ordered a CT of the ears. This has not been done yet. It was ordered with contrast and he has a remote history of IV dye contrast, but says he has since tolerated CT contrast without incident and does not plan to take the recommended steroid prophylaxis. We will get notes from Dr. Reyes. Aneurysm of ascending aorta without rupture 12/19 Overview (10/25/2024): Small 3.5 cm on low-dose CT scanning for lung cancer. Assessment & Plan (10/25/2024 3:47 AM SUPPLY CHAIN PROCUREMENT MANAGER): Chronic, small, diagnosed about two years ago, managed with blood pressure control on olmesartan-hydrochlorothiazide 20-12.5 mg daily, monitored on annual low-dose CT scan of the chest. Shortness of breath 09/25/2022 Assessment & Plan (09/25/2022 4:21 PM SUPPLY CHAIN PROCUREMENT MANAGER): LIkely caused by esophageal spas, see plan below. Esophageal spasm 09/25/2022 Assessment & Plan (09/25/2022 4:21 PM SUPPLY CHAIN PROCUREMENT MANAGER): likely what caused episode where he couldn't catch his breath since pepcid and sleeping upright is helping. No acute findings on exam. CXR done last week showed known nodule but nothing acute. No cardiac symptoms or edema noted. Last ECHO in was unremarkable. Continue pepcid BID. Discussed low acid diet: avoid soda, sugar substitutes, vinegar, pickles, citrus, tomatoes, coffee, and alcohol. Stay hydrated. Call with any changes or concerns. If symptoms not improved in 6-8 weeks my need GI consult for EGD. Abnormal EKG 11/30/2020 Overview (01/14/2021): See EKG at [facility] showing RBBB, LAFB and LVH. Echo at [facility] on 01/14/2021: Normal left ventricular systolic function with no focal wall motion abnormalities. Normal left ventricular size. Normal left ventricular wall thickness. Normal structure of the aortic valve. There is pseudonormal diastolic dysfunction Grade II. Ejection fraction is measured at 59 %. There is mild enlargement of right atrium. Normal structure of the mitral valve. Trivial regurgitation of the mitral valve. Normal structure of the tricuspid valve. Normal right ventricular systolic pressure. Estimated peak RVSP is 26 mmHg. Mild tricuspid regurgitation. Assessment & Plan (01/31/2021 10:08 AM CDT): A preoperative EKG at [facility] on 11/30/2020 showed a right bundle branch block, left anterior fascicular block, and LV hypertrophy. He is basically asymptomatic from a cardiovascular standpoint. We did get an echocardiogram at [facility] on 01/14/2021 which showed the following: Normal left ventricular systolic function with no focal wall motion abnormalities. Normal left ventricular size. Normal left ventricular wall thickness. Normal structure of the aortic valve. There is pseudonormal diastolic dysfunction Grade II. Ejection fraction is measured at 59 %. There is mild enlargement of right atrium. Normal structure of the mitral valve. Trivial regurgitation of the mitral valve. Normal structure of the tricuspid valve. Normal right ventricular systolic pressure. Estimated peak RVSP is 26 mmHg. Mild tricuspid regurgitation. He denies having any chest pain or pressure other than musculoskeletal discomfort, even when he works out. He gets occasional heartburn with certain foods. He had s everal stress tests with his former PCP, Dr. Olvera. We will try to get those results. The patient does not want to follow-up with Cardiology at this time. We will see him back as scheduled in a couple of months. Assessment & Plan (01/19/2021 4:47 PM CDT): Prior to left carpal tunnel surgery earlier this year, he had a preoperative EKG at [facility] which was sent here. It showed a right bundle branch block, left anterior fascicular block, and LVH. He denies having any chest pain or pressure or any history of known cardiac problems. We will start evaluating with an echocardiogram. Consider stress testing or referral to Cardiology as needed. Nodule of left lung 12/12/2019 Overview (01/13/2023): Imaging consistent with granuloma. Sputum from 12/14/2019 reported positive for AFB on 12/31/2019 in broth only, not MTB, ID pending. Follow up CT at [facility] on 01/02/2022: Again seen are indeterminate pulmonary nodules. Largest measures 8 x 4 mm of the lingula, unchanged. Pleural plaque also seen on left. 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 Follow-up CT at [facility] on 01/05/2023: No new nodules. Smoking related moderate emphysema and bronchial wall thickening. Small 3.9 cm ascending aortic aneurysm. Assessment & Plan (10/31/2024 6:48 AM SUPPLY CHAIN PROCUREMENT MANAGER): Chronic, noted about five years ago and followed on periodic CT scans. Follow-up imaging ordered. Assessment & Plan (04/16/2022 11:15 AM CDT): He had another CT scan about two months ago which showed stable findings. Follow-up is planned in one year. Assessment & Plan (01/14/2022 10:39 AM CDT): A follow-up CT scan at [facility] about a week ago showed no change compared to a year ago. We will continue to monitor it annually. 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 He did have one CT of the chest about a year ago to follow-up on an abnormal chest x-ray, and it was consistent with a granuloma. 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 He is not symptomatic in any way except for a morning cough productive of clear phlegm. He has no night sweats, shortness of breath or other major symptoms. We will monitor clinically and repeat imaging as needed. Assessment & Plan (10/19/2020 10:42 AM SUPPLY CHAIN PROCUREMENT MANAGER): Weight is stable. He denies cough or shortness of breath. A follow-up CT of the chest may be appropriate at some point in the near future. Last one was November of 2019 and findings were consistent with a granuloma. 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 It was only in the broth. 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 He is currently asymptomatic with no chills, night sweats or fever. We will monitor imaging periodically as appropriate. Assessment & Plan (12/12/2019 2:25 PM CDT): Incidental finding of 1.5cm density noted on CXR done for cough. Given patient symptoms and significant tobacco abuse history he will need CT scan of chest done for further evaluation to r/o the possibility of malignancy. Will await results. Primary osteoarthritis involving multiple joints 03/20/2018 Assessment & Plan (10/31/2024 6:50 AM SUPPLY CHAIN PROCUREMENT MANAGER): Chronic, present for 6-7 years or more, poor control, treated with intermittent interventions by pain management. Assessment & Plan (07/23/2024 6:25 PM SUPPLY CHAIN PROCUREMENT MANAGER): Chronic, currently uncontrolled and experiencing a flare of pain in his left shoulder from moving a large amount of dirt to fill an eroded area on their property. Symptoms are starting to improve since the project was completed. He also had a minimally invasive lumbar diskectomy in September which helped his chronic back pain. He maintains things with a home physical therapy program, continue same. Assessment & Plan (09/29/2023 9:16 AM SUPPLY CHAIN PROCUREMENT MANAGER): He reduced the dose of gabapentin from 300 mg twice a day to 300 mg at night only, due to some dizziness that he attributed to the medication. The dizziness resolved. We adjusted the listed dose. Assessment & Plan (06/25/2023 9:05 AM CDT): He is seeing Dr. Farrar. He finished the retaining wall on his property. The hips are doing okay. The back is b ad. He has a follow-up with pain management and probably will get another injection which helped last time. Assessment & Plan (03/28/2023 4:34 PM CDT): He had good relief of left hip pain from a steroid injection. Now his right hip is starting to bother him again. He will follow-up with pain management. Assessment & Plan (12/04/2022 10:47 AM CDT): Since having a steroid injection in his back from Dr. Farrar about six weeks ago, he is having good relief of discomfort in his left hip. He no longer takes diclofenac. Assessment & Plan (02/06/2022 2:07 PM CDT): He continues on diclofenac for chronic osteoarthritic pain. His blood pressure is running a little high so we adjusted his blood pressure medicine a bit. He will start checking blood pressure at home and call if it does not come down. Assessment & Plan (10/17/2021 11:52 AM SUPPLY CHAIN PROCUREMENT MANAGER): Hands, lower back and left hip are the main focus. The back in particular has been bad lately. He plans to see a back specialist for possible surgical evaluation. He has had injections in the past which would give him relief for up to 2 years, but the last injection was not helpful. Assessment & Plan (04/27/2021 2:38 PM CDT): He is doing OK. He uses diclofenac to cope with various aches and pains. Continue same. Assessment & Plan (01/10/2021 10:27 AM CDT): For while he was not needing diclofenac, but he started working in his garden again and would like a refill. There is no evidence of any toxicities, so we sent that in for him. Assessment & Plan (10/11/2020 9:35 AM SUPPLY CHAIN PROCUREMENT MANAGER): Lately is hips have been bothering him more. It started when he did some heavy gardening projects. He does not take anything regularly for pain. Ambulation seems pretty normal. Continue to monitor. Assessment & Plan (01/20/2020 3:46 PM CDT): Besides his back, his hands and wrists sometimes hurt depending on activity level. Recently, he was using a manual saw which caused a flare of pain. We sent in some diclofenac for use as needed. We cautioned him about the possible GI side effects, and possible interaction with olmesartan. He should minimize the use as much as possible. He says he only takes it once or twice a week. Left carpal tunnel syndrome 03/20/2018 Overview (10/11/2020): Saw Dr. Jay in [place], had right side done, left side now bothering him. Assessment & Plan (10/11/2020 9:36 AM SUPPLY CHAIN PROCUREMENT MANAGER): About three years ago he had right carpal tunnel syndrome operated by Dr. Jay in [place]. He had a good result. Now the left hand has been bothering him and he plans to go back to Dr. Jay for further evaluation. Elevated PSA 12/09/2017 Overview (06/13/2023): Followed by Dr. Nascimento. Biopsy in about January 2018 still negative, #3 over the past 5 years or so. MRI of prostate at [facility] in 2019. Assessment & Plan (10/25/2024 3:48 AM SUPPLY CHAIN PROCUREMENT MANAGER): Chronic, present for 6-7 years, stable. Previous evaluation with biopsies negative for cancer. Lab Results Component Value Date PSA 11.10 (H) 10/18/2024 PSA 10.20 (H) 03/27/2024 PSA 12.80 (H) 06/10/2023 Assessment & Plan (06/14/2023 10:22 AM CDT): He has no plans to follow-up with Urology. We will continue to monitor PSA periodically. Assessment & Plan (12/04/2022 10:46 AM CDT): We suggested imaging such as MRI, but he is leery of any additional workup of his prostate. Assessment & Plan (04/16/2022 11:14 AM CDT): He has had negative biopsies and a negative MRI. We will continue to monitor PSA levels. Assessment & Plan (01/14/2022 10:40 AM CDT): PSA remains elevated, but prostate MRI was negative as were biopsies in the past. Assessment & Plan (07/17/2021 9:32 AM CDT): He has had an elevated PSA since about 2014. He has had several biopsies, all of which were negative. It has been over a year since his last PSA. There was a mixup at his urologist's office in terms of follow-up scheduling. He will call them and get a follow-up. Assessment & Plan (01/10/2021 10:29 AM CDT): This is followed by Dr. Nascimento. MRI last June was low risk. He sees Dr. Nascimento about every six months. Assessment & Plan (10/19/2020 10:47 AM SUPPLY CHAIN PROCUREMENT MANAGER): He says his PSA has come down a little bit on an xwkm-tvp-duaqnut herbal remedy, possibly saw palmetto. He sees Dr. Nascimento regularly and is scheduled in the next week or two for a follow-up. Past biopsies have been negative Assessment & Plan (07/11/2020 1:39 PM CDT): The patient reports that the most recent value in Dr. Nascimento office was about 15.0 which is higher than it typically is (6.0-8.0). A biopsy is being considered. This would be the fourth biopsy he has had with previous results being negative. Assessment & Plan (06/29/2018 9:25 AM CDT): He has had an elevated PSA for a number of years now. He has had three biopsies, last one about five months ago in Dr. Nascimento' office. We will try to get those results. Patient says they were negative. He has no new urinary complaints. He will keep his follow ups with Urology. Assessment & Plan (01/10/2018 12:12 PM CDT): He had a biopsy last week. He sees Dr. Nascimento for a follow-up soon. We will also request the records of the biopsy and if the patient has any questions, he can schedule a follow-up with me for this as well. Elevated blood sugar 01/13/2017 Overview (06/14/2017): See labs. Slightly elevated HgbA1C Left hip pain 03/20/2012 Assessment & Plan (09/04/2022 11:02 AM SUPPLY CHAIN PROCUREMENT MANAGER): He will be seeing Dr. Nascimento in about 3 months for persistent left hip pain and a possible labral tear. Assessment & Plan (06/05/2022 1:03 PM CDT): His left hip pain improved after a local injection by Dr. Farrar. This might indicate primary osteoarthritis as opposed to referred pain from his back. He will keep his follow ups with pain management and orthopedics. Assessment & Plan (10/17/2021 11:54 AM SUPPLY CHAIN PROCUREMENT MANAGER): His left hip has been a problem for years, but is getting worse. He has an appointment to see Dr. Ocasio, orthopedics at [facility]. He thinks the hip might need to be replaced. In the meantime he would like to try a Medrol Dosepak. He has had them before. We discussed the potential risks or oral steroids. BPH (benign prostatic hyperplasia) 05/21/2011 Overview (01/10/2020): Sees Dr. Nascimento, has elevated PSA, had negative biopsies. Has urinary frequency. Assessment & Plan (10/25/2024 3:47 AM SUPPLY CHAIN PROCUREMENT MANAGER): Chronic, present for decades, patient takes a supplement called PROSTATE THERAPY ORAL. Assessment & Plan (07/23/2024 6:24 PM SUPPLY CHAIN PROCUREMENT MANAGER): Chronic, present for about 15 years, associated with elevation of PSA but negative biopsies. He denies any new urinary complaints. We will continue to monitor with periodic PSA testing. Assessment & Plan (12/27/2023 11:15 AM CDT): He denies any new urinary symptoms of concern. He would like to check another diagnostic PSA test which tends to run a little on the high side, but several previous evaluations were negative for prostate cancer including biopsies. Assessment & Plan (09/27/2023 12:59 PM SUPPLY CHAIN PROCUREMENT MANAGER): No new urinary symptoms reported. Previously biopsies were negative. We are monitoring PSA levels periodically. Lab Results Component Value Date PSA 12.80 (H) 06/10/2023 PSA 11.20 (H) 11/27/2022 PSA 8.62 (H) 01/09/2022 Assessment & Plan (06/14/2023 10:22 AM CDT): He reports no new symptoms. He has frequency and urgency but no dysuria or hematuria. PSA is marginally higher than the previous value. Multiple previous biopsies and imaging were negative for prostate cancer. We will continue to monitor periodically. Lab Results Component Value Date PSA 12.80 (H) 06/10/2023 PSA 11.20 (H) 11/27/2022 PSA 8.62 (H) 01/09/2022 Assessment & Plan (03/10/2023 9:23 AM CDT): He has a chronically mildly elevated PSA. Previous evaluation including biopsies was negative. He would like to check another PSA in three months which we ordered today. Assessment & Plan (12/19/2022 1:22 PM CDT): He has urinary frequency. PSA was marginally higher recently compared to previous values. Over the years he says it is varied from 10 to as high as 15. Several biopsies were negative over the years. He will think about having another follow-up with Urology but wants a second opinion from a different provider. Lab Results Component Value Date PSA 11.20 (H) 11/27/2022 PSA 8.62 (H) 01/09/2022 Assessment & Plan (09/04/2022 10:59 AM SUPPLY CHAIN PROCUREMENT MANAGER): He no longer sees Dr. Nascimento. We will check a follow up PSA before next visit Assessment & Plan (06/16/2022 6:57 AM CDT): He has learned that he can control is urinary urgency so he is not going as frequently as before even though he resumed diuretic therapy for better blood pressure control. We will monitor clinically. Assessment & Plan (04/27/2022 9:02 AM CDT): He denies any new urinary symptoms of concern. He has not been to Urology for a couple of years because of a difference in opinion about management. He had a negative MRI about two years ago and has had negative biopsies more than once in the past. His last PSA was actually lower than his usual baseline 16. We will continue to monitor periodically. Lab Results Component Value Date PSA 8.62 (H) 01/09/2022 Assessment & Plan (10/17/2021 11:56 AM SUPPLY CHAIN PROCUREMENT MANAGER): He has an elevated PSA. A prostate MRI ordered by his urologist, Dr. Nascimento, was negative for worrisome findings. He would like to have a follow up PSA with next labs, which we ordered. Assessment & Plan (08/16/2021 10:07 AM SUPPLY CHAIN PROCUREMENT MANAGER): He has had some problems with urinary frequency in the past. Currently nocturia only occurs rarely. He denies dysuria or hematuria. He will follow-up with Dr. Nascimento. Assessment & Plan (04/14/2021 11:32 AM CDT): PSA tests are high, but biopsies and MRI are negative. He will follow up with Dr. Nascimento. Assessment & Plan (10/11/2020 9:38 AM SUPPLY CHAIN PROCUREMENT MANAGER): He denies dysuria or hematuria. He sees Dr. Nascimento in a week or two. Assessment & Plan (07/11/2020 1:38 PM CDT): This is followed closely by his urologist, Dr. Nascimento. PSA has been fluctuating. He had a prostate MRI recently. We will get those results. He will keep his follow ups with Dr. Nascimento. Assessment & Plan (07/05/2019 9:54 AM CDT): He sees Dr. Nascimento twice a year. He has had a negative prostate biopsy. He will keep his follow ups with Urology. Assessment & Plan (12/28/2017 5:56 AM CDT): He sees Dr. Nascimento. Last PSA was slightly elevated, so a biopsy is planned. He is getting antibiotics before and after the biopsy, about 10 days worth. He will call in with the name of the antibiotic so we can put it on his list. He will keep followups with Urology. Assessment & Plan (11/07/2017 7:45 AM SUPPLY CHAIN PROCUREMENT MANAGER): He asked about PSA testing which has been ordered by Dr. Nascimento. An elevated PSA has been followed for many years, and it fluctuates between 5.0 and 10.0. It does not sound like there are any trends. He has had a previous negative prostate biopsy. Dr. Nascimento had proposed another prostate biopsy, but the patient is reluctant to have the procedure. I recommended that he discuss this further with Dr. Nascimneto and his office. Perhaps a three month follow-up PSA would be reasonable. Essential hypertension 05/21/2007 Assessment & Plan (10/31/2024 6:47 AM SUPPLY CHAIN PROCUREMENT MANAGER): Chronic, present for 15 or more years, generally well controlled on olmesartan-hydrochlorothiazide 20-12.5 mg daily. Follow-up labs ordered. BP: 124/74 Assessment & Plan (07/19/2024 10:26 AM CDT): Chronic, present for more than 15 years, controlled on olmesartan- hydrochlorothiazide 20-12.5 mg daily. He denies chest pain or pressure. Continue same, and follow-up in three months Assessment & Plan (04/09/2024 11:28 AM CDT): Chronic, not at goal on Benicar HCT 20-12.5 mg daily. Systolic blood pressure is mildly elevated and diastolic is borderline. We recommended that he monitor blood pressure at home and call us if it does not come down into a normal range so that we can adjust his medicine. Assessment & Plan (12/27/2023 11:15 AM CDT): Blood pressure is just barely at goal at 140/80. He denies chest pain or pressure. We will see him back in three months with labs. Assessment & Plan (09/27/2023 1:02 PM SUPPLY CHAIN PROCUREMENT MANAGER): Systolic blood pressure is minimally elevated on his current Benicar HCTZ. He denies chest pain or pressure. Assessment & Plan (06/14/2023 10:29 AM CDT): Blood pressure is well controlled on current therapy. Labs are stable. Continue same. Lab Results Component Value Date GLUCOSE 90 06/10/2023 CALCIUM 9.8 06/10/2023 SODIUM 142 06/10/2023 POTASSIUM 4.4 06/10/2023 CO2 29 06/10/2023 CHLORIDE 102 06/10/2023 BUNSER 14 06/10/2023 CREATININE 0.97 06/10/2023 Assessment & Plan (03/10/2023 9:25 AM CDT): Systolic blood pressure is mildly/borderline elevated. He gets similar readings at home. He forgot to bring in his cuff to ensure that it is accurate. He will continue to monitor blood pressure at home and if it remains in his range, we will adjust his medications. He denies chest pain. Labs are stable. Lab Results Component Value Date GLUCOSE 96 03/05/2023 CALCIUM 9.2 03/05/2023 SODIUM 141 03/05/2023 POTASSIUM 4.4 03/05/2023 CO2 28 03/05/2023 CHLORIDE 102 03/05/2023 BUNSER 24 03/05/2023 CREATININE 1.01 03/05/2023 Assessment & Plan (12/04/2022 10:46 AM CDT): Blood pressure is borderline, but reasonably controlled on olmesartan/HCTZ. Continue same. We will check follow-up labs before his next visit. Assessment & Plan (09/23/2022 8:35 PM SUPPLY CHAIN PROCUREMENT MANAGER): Borderline in office today on current therapy. No acute exam findings. Continue current therapy and low salt diet. Assessment & Plan (09/04/2022 11:01 AM SUPPLY CHAIN PROCUREMENT MANAGER): BP is running a little high in the office and at home. We increased his BP medication dose today. Follow up in 3 months. Assessment & Plan (06/05/2022 1:03 PM CDT): Blood pressure was trending higher when he went off his diuretic, so he is now back on combination olmesartan and hydrochlorothiazide with pretty good control. We will see him back in three months. Assessment & Plan (04/16/2022 11:14 AM CDT): Blood pressure is in a good range on current therapy. He denies chest pain or other new symptoms of concern. Assessment & Plan (02/06/2022 2:07 PM CDT): Blood pressure is too high. In the past, he responded well to the addition of a diuretic, and in fact blood pressure went too low. We will add back a lower potency diuretic. He will check blood pressure at home and call with readings if they do not come down to a normal range. Assessment & Plan (11/01/2021 7:34 PM SUPPLY CHAIN PROCUREMENT MANAGER): Systolic BP is midly elevated, possibly in part due to his pain issues. Continue current therapy. We will see him abck in 3 months. If still high, consider adding a second agent or increasing the dose of olmesartan. Assessment & Plan (07/17/2021 9:32 AM CDT): Blood pressure is in a good range on current therapy. He denies chest pain or pressure. Continue same. Assessment & Plan (04/14/2021 11:29 AM CDT): BP is in a good range. He denies any new symptoms of concern. Continue current medications. Assessment & Plan (01/10/2021 10:29 AM CDT): Blood pressure is in a good range on olmesartan 20 mg. Labs are stable. Continue same. Assessment & Plan (10/11/2020 9:37 AM SUPPLY CHAIN PROCUREMENT MANAGER): Blood pressure is in a good range. He denies chest pain or shortness of breath. Continue current therapy. Assessment & Plan (07/11/2020 1:39 PM CDT): Blood pressure is in a good range on current therapy. He denies having any chest pains. Continue same and follow-up in three months. Assessment & Plan (01/10/2020 1:37 PM CDT): Blood pressure is mildly elevated. This has happened in the past, so we added a diuretic, then blood pressure went too low. The mild elevation could be due to the recent flare of his lung disease. It could be due to recent use of nonsteroidals. We will have him start monitoring blood pressure at home and call in two weeks with a report. Consider resuming a low-dose diuretic if still elevated. Assessment & Plan (07/05/2019 9:55 AM CDT): Initial blood pressure in the office was a bit high, but he was upset because he was cut off in traffic on his way to the office visit. A repeat blood pressure is in a much better range. He also checks blood pressures about once a week at home. Continue current therapy and follow up in six months. Assessment & Plan (06/29/2018 9:26 AM CDT): Blood pressure is in a good range. He is tolerating olmesartan. He forgot to get labs done for this appointment, so he will get them done later this week. Follow-up annually and as needed. Assessment & Plan (12/22/2017 9:41 AM CDT): Blood pressure is in a very good range. Initially with the treatment given, it was running a little low and he felt fatigued, so adjustments were made in his medications which are reflected in his current medication list. Continue same, and follow up routinely in six months. Assessment & Plan (11/07/2017 7:43 AM SUPPLY CHAIN PROCUREMENT MANAGER): Blood pressures are still running too high. He brought in a sheet of home blood pressures that we are scanning into the record. He bought a home blood pressure cuff and has never checked home blood pressures prior to this. Most likely, his blood pressures have been running high chronically, but we are trying to get them down. He denies taking [id number] medicines that contain decongestants, even though he did come down with a cold several days ago. We will increase the dose of generic Benicar, and put him on a diuretic. Continue to monitor home blood pressures, and hopefully we will reach the goal of less than 140/90. Currently he denies any worrisome symptoms. Mixed hyperlipidemia 05/21/2007 Overview (04/16/2022): Intolerant of statins. Assessment & Plan (10/25/2024 3:49 AM SUPPLY CHAIN PROCUREMENT MANAGER): Chronic, intolerant of statin medication. Takes ezetimibe 10 mg daily. Follow-up labs ordered. Assessment & Plan (07/23/2024 6:24 PM SUPPLY CHAIN PROCUREMENT MANAGER): Chronic, present for more than 15 years, intolerant of statin primary prophylaxis, but he is taking ezetimibe 10 mg daily. Continue same and monitor labs periodically. Assessment & Plan (12/27/2023 11:16 AM CDT): He is tolerating Zetia. We ordered lipids to be done before his next visit in three months to see if he remains at goal with LDL less than 100. Lab Results Component Value Date LDLCALC 74 03/05/2023 Assessment & Plan (09/27/2023 1:09 PM SUPPLY CHAIN PROCUREMENT MANAGER): He is not tolerant of statins. He is taking Zetia. We will monitor lipids periodically. Assessment & Plan (06/14/2023 10:26 AM CDT): He is taking Zetia. We will monitor lipids periodically. Assessment & Plan (03/10/2023 9:25 AM CDT): He is taking Zetia. He is intolerant of statins. Lipids look pretty favorable. Lab Results Component Value Date CHOL 144 03/05/2023 CHOL 159 01/09/2022 CHOL 161 01/03/2021 Lab Results Component Value Date HDL 47 03/05/2023 HDL 56 01/09/2022 HDL 51 01/03/2021 Lab Results Component Value Date LDLCALC 74 03/05/2023 LDLCALC 90 01/09/2022 LDLCALC 98 01/03/2021 LDL 99 09/14/2018 LDL 89 05/28/2017 Lab Results Component Value Date TRIG 116 03/05/2023 TRIG 66 01/09/2022 TRIG 61 01/03/2021 Lab Results Component Value Date ALT 20 03/05/2023 AST 33 03/05/2023 ALKPHOS 63 03/05/2023 BILITOT 0.4 03/05/2023 Assessment & Plan (12/04/2022 10:46 AM CDT): He is intolerant of statins. He is taking Zetia. He has been very active breaking down a brick wall in his basement so the foundation can be repaired. He denies any chest pain or pressure. Assessment & Plan (09/04/2022 11:02 AM SUPPLY CHAIN PROCUREMENT MANAGER): He is intolerant of statins. He is on Zetia. Continue same. Assessment & Plan (04/16/2022 11:15 AM CDT): He is intolerant of statins but is taking Zetia. Continue same and monitor labs periodically. Assessment & Plan (01/14/2022 10:39 AM CDT): He is on Zetia, tolerating well. Continue same. Assessment & Plan (10/17/2021 11:53 AM SUPPLY CHAIN PROCUREMENT MANAGER): He is on Zetia, is intolerant of statins. We will check lipids before his next visit. Assessment & Plan (08/16/2021 10:08 AM SUPPLY CHAIN PROCUREMENT MANAGER): He is intolerant of statins, but is tolerating Zetia pretty well. His last lipid panel about six months ago looked pretty favorable. Continue same. Lab Results Component Value Date CHOL 161 01/03/2021 CHOL 166 01/24/2020 CHOL 174 09/14/2018 Lab Results Component Value Date HDL 51 01/03/2021 HDL 50 01/24/2020 HDL 54 09/14/2018 Lab Results Component Value Date LDLCALC 98 01/03/2021 LDLCALC 98 01/24/2020 LDL 99 09/14/2018 LDL 89 05/28/2017 Lab Results Component Value Date TRIG 61 01/03/2021 TRIG 92 01/24/2020 TRIG 110 09/14/2018 Assessment & Plan (04/14/2021 11:28 AM CDT): He is on Zetia, tolerating well. We will check labs periodically. Assessment & Plan (01/19/2021 4:46 PM CDT): His most recent lipid profile looks fairly favorable on a standard dose of Zetia. Continue same. Assessment & Plan (10/11/2020 9:36 AM SUPPLY CHAIN PROCUREMENT MANAGER): He is intolerant of statins but is taking Zetia. Continue same and check lipids before next visit. Assessment & Plan (07/11/2020 1:39 PM CDT): He is on Zetia to keep his cholesterol down. Continue same. Assessment & Plan (01/10/2020 1:37 PM CDT): He seems to be tolerating Zetia. We will check follow-up lipid profile. Return in six months, or sooner if needed. Assessment & Plan (07/05/2019 9:55 AM CDT): His last cholesterol panel 10 months ago was quite favorable. He is on Zetia, apparently being intolerant of statins. Continue same. Repeat labs at his next office visit. Assessment & Plan (06/29/2018 9:26 AM CDT): Lipid profile will be done later this week. We will be in touch with the patient about any needed intervention. Assessment & Plan (01/16/2018 6:55 PM CDT): He was intolerant of statin. It gave him severe myalgias. He wants to resume his Zetia. That is okay with me, although for primary prevention, it is my understanding that we do not know of any definite benefit of Zetia. However he has tolerated it in the past. He is trying to eat better. We will check follow-up labs periodically. Assessment & Plan (12/28/2017 5:58 AM CDT): His last cholesterol profile looked pretty favorable, but we made changes in his medication, so we will check a follow-up before his next appointment in six months. Assessment & Plan (05/21/2017 10:26 AM CDT): Lipid abnormalities are unchanged. Nutritional counseling was provided. Lipids will be reassessed in 6 months. Seasonal rhinitis 05/21/2007 Assessment & Plan (07/23/2024 6:26 PM SUPPLY CHAIN PROCUREMENT MANAGER): Chronic, present for more than 15 years, currently uncontrolled due to allergy to the corn harvest. He has postnasal drainage and a cough. He thinks he has a sinus infection. He gets yellow secretions out of his nose and when he coughs. Due to his smoking habit, we put him on a Z-Balta for a probable flare of bronchitis. Assessment & Plan (01/10/2020 1:40 PM CDT): He uses Zyrtec as needed for nasal allergies. He no longer needs the Astelin. Assessment & Plan (07/05/2019 9:55 AM CDT): He has not had to use Astelin very much. We will leave it on his list for use as needed. Chronic bilateral low back pain without sciatica 05/21/2007 Overview (01/23/2022): Used to see Dr. Rey, had shots off and on since about 2007. Lumbar spine CT on 01/20/[address] Susan Choi: No lumbar spine fracture is identified. Mild lumbar disc degeneration and accompanying facet arthropathy. Resultant moderate spinal canal stenosis at both L3-4 and L4-5. Foraminal narrowing at L2-3, L3-4, L4-5 and L5-S1. Assessment & Plan (09/29/2023 9:16 AM SUPPLY CHAIN PROCUREMENT MANAGER): A MILD procedure he is planned but not scheduled yet. He sees his pain management physician, Dr. Farrar, in a day or two. From my perspective, there is no contraindication to having this procedure. He does have a history of bifascicular block on an EKG several years ago. Echocardiogram was normal except for some diastolic dysfunction. He reports having s everal stress tests with his former PCP but we never received those results. He has tolerated minor surgical procedures in the recent past (carpal tunnel, hip injections). If a follow-up EKG and labs are done prior to the MILD procedure, I asked the patient to make sure I see the reports before the procedure. Otherwise I think risk is acceptable and relatively low. Assessment & Plan (09/04/2022 11:00 AM SUPPLY CHAIN PROCUREMENT MANAGER): He is seeing Dr. Farrar in [place], and had relief of sciatica from a nerve ablation, but the left hip pain persists. He got a referral to Dr. Nascimento for a possible labral tear. We will get reports of the hip imaging. Assessment & Plan (06/16/2022 6:57 AM CDT): He saw Dr. Farrar in [place]. He has been through some therapeutics including local injections. Tramadol was also prescribed to supplement diclofenac and occasional Tylenol. Assessment & Plan (04/27/2022 9:02 AM CDT): He is now seeing Dr. Phani Farrar in [place]. He got an injection and some physical therapy and thinks there has been improvement. He had a follow-up pain management appointment yesterday to plan additional treatments. Assessment & Plan (01/14/2022 10:41 AM CDT): He is struggling with a lot of chronic low back pain. He has seen multiple specialists and pain management doctors without any benefit from injections or other interventions. He wondered if a minimally invasive laminectomy decompression would help. We discussed the track record of surgery for chronic low back pain which is not terrific. He will get a second opinion from Dr. Farrar in [place]. Assessment & Plan (08/16/2021 10:07 AM SUPPLY CHAIN PROCUREMENT MANAGER): He has flares of low back pain now and then. He is planning to see a chiropractor today for an assessment and possible treatments. His has had good results for her fibrositis and hip pain. Assessment & Plan (01/10/2021 10:27 AM CDT): He wanted a referral for possible pain management, just informational at this point. We suggested Dr. Juarez at [facility]. The yard work has been hard on his back. There is no sciatic radiation. Assessment & Plan (01/20/2020 3:43 PM CDT): He gets flares of low back pain from time to time. For awhile he was in pain management. Now he takes a nonsteroidal as needed. I cautioned him not to take it too often as it may affect his blood pressure and could interact with olmesartan. However, he only takes it once or twice a week, so this is probably okay. We sent in a prescription for diclofenac (he had been using his 's supply.) Assessment & Plan (06/29/2018 9:25 AM CDT): He stays active. He is able to mow the lawn, clear brush, and otherwise function well. Continue to monitor for any complications. Assessment & Plan (12/28/2017 5:57 AM CDT): He had an injection in his lower back which did not help much. He wants to see a different pain physician, so plans to make an appointment at [facility]. Colon polyps 05/21/2000 Overview (03/06/2023): Tubular adenomas x 2 removed, 09/25/2015, Dr. Mendiola, [facility]. Assessment & Plan (03/10/2023 9:24 AM CDT): He is overdue for a colonoscopy and we reminded him to schedule this with his GI physician, Dr. Zavala, at [facility]. Amblyopia of right eye 03/20/2000 Overview (03/06/2023): Patient reports weak right eye for years, probably from childhood, with episodes of dysconjugate gaze and alternate fixation. Assessment & Plan (03/27/2023 4:52 PM CDT): He reports longstanding amblyopia affecting his right eye. He has trouble with what sounds like strabismus at times. He says the right eye is worse than the left. On visual acuity testing, he actually has better corrected visual acuity in the right eye than the left eye. We recommended a follow-up with Ophthalmology, especially if the current conjunctival discharge does not improve with empiric antibiotic therapy. 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 Most prominent on bilateral flanks. Also notes it on his legs. Assessment & Plan (12/27/2023 11:17 AM CDT): He uses clobetasol as needed for a rash on his legs. Continue same. Assessment & Plan (04/16/2022 11:18 AM CDT): He continues to apply moisturizing creams to the rash on his flanks and legs. It does not completely eliminate symptoms. Topical steroids were unhelpful. The only thing that worked was oral steroids at one point. Exam is negative for any major rash at this time. We will monitor clinically. 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 It responds to triamcinolone cream. Exam today shows no definite acute rash. Continue to monitor clinically. Assessment & Plan (12/28/2017 5:59 AM CDT): He has a fairly nonspecific, eczematous type rash in patches on his forearms that has been present for many years. It seems to relate to some exposure at [employer] [facility] many years ago. It responds to triamcinolone cream which we refilled today. Tobacco use disorder 05/21/1965 Overview (05/21/2017): Has tried to quit multiple times. Assessment & Plan (10/25/2024 3:51 AM SUPPLY CHAIN PROCUREMENT MANAGER): Chronic, present for decades, uncontrolled as he has been unable to quit. We recommended continued efforts. Assessment & Plan (07/23/2024 6:27 PM SUPPLY CHAIN PROCUREMENT MANAGER): Chronic, uncontrolled, present for more than 50 years. He reports smoking less but not able to quit. We encouraged him to try nevertheless, and gave him appropriate resources. Assessment & Plan (12/27/2023 11:17 AM CDT): He continues to smoke cigarettes. He is trying to cut back and we encouraged his efforts. Assessment & Plan (09/27/2023 1:13 PM SUPPLY CHAIN PROCUREMENT MANAGER): He is trying to quit. We encouraged his efforts. Assessment & Plan (06/14/2023 10:27 AM CDT): He is up-to-date on low-dose CT scanning of the chest. Assessment & Plan (12/04/2022 10:47 AM CDT): We again encouraged smoking cessation. Low-dose CT will be due next month. Assessment & Plan (09/04/2022 11:03 AM SUPPLY CHAIN PROCUREMENT MANAGER): He continues to smoke. A follow up low dose CT will be due in December. Assessment & Plan (06/05/2022 1:04 PM CDT): He is still smoking, we encouraged cessation. Assessment & Plan (04/16/2022 11:16 AM CDT): We again encouraged smoking cessation. Assessment & Plan (01/14/2022 10:38 AM CDT): He is working on smoking cessation. He goes several days at a time without smoking and then has a couple of cigarettes. I encouraged his efforts. Assessment & Plan (11/01/2021 7:33 PM SUPPLY CHAIN PROCUREMENT MANAGER): He is still smoking a little. We encouraged his continued efforts to quit. Assessment & Plan (08/16/2021 10:10 AM SUPPLY CHAIN PROCUREMENT MANAGER): He continues to smoke about the same. The amount fluctuates. Given recent changes in lung cancer screening recommendations, he now qualifies for annual low-dose CT scan of the chest. He did have a CT about 18 months ago to follow-up a nodule seen on chest x-ray which turned out to be a granuloma. He had some tree-in-bud abnormalities likely due to a low-grade chronic non tuberculous AFB infection. He has no major constitutional symptoms, but he has lost about 10 lb over the past several years. We will request follow-up imaging (low-dose CT scan of chest). Assessment & Plan (04/14/2021 11:25 AM CDT): We again recommended smoking cessation. Assessment & Plan (01/19/2021 4:44 PM CDT): He continues to smoke, not very much, but I encouraged smoking cessation to reduce cardiovascular and cancer risks. He remains below the threshold for annual low dose CT of the chest, but we have been following other abnormalities as discussed elsewhere. Assessment & Plan (10/11/2020 9:34 AM SUPPLY CHAIN PROCUREMENT MANAGER): He is still smoking, not very much but I encouraged him to quit. Assessment & Plan (07/11/2020 1:42 PM CDT): He still smokes cigarettes, not very many. He has tried to quit off and on over many years and never had any success. Nevertheless, we continue to encourage additional efforts at smoking cessation. His total tobacco burden falls below the threshold for annual low-dose CT scan, but he does have some abnormalities from previous imaging that we will monitor from time to time. Assessment & Plan (01/10/2020 1:40 PM CDT): He continues to smoke, but not very heavily. We encouraged cessation. He will work on it. Assessment & Plan (07/05/2019 9:57 AM CDT): He is still smoking o ff and on . He has tried to quit multiple times without complete success. Smoking cessation is highly recommended. We will continue to encourage the effort. Assessment & Plan (06/29/2018 9:27 AM CDT): He has cut way way back on cigarettes. He does not even smoke every day. Ideally, he would just quit completely, but there are some triggers such as having a beer that seem to compel him to smoke. He will continue efforts to quit completely. Assessment & Plan (12/28/2017 6:00 AM CDT): He continues to smoke. The exact amount is uncertain as he tends to smoke intermittently and somewhat infrequently, letting the cigarette burn in the ashtray without inhaling for up to 10 min at a time. He has tried to quit many times and plans to quit again. Encouragement given. Resolved Problems Problem Noted Date Diagnosed Date Resolved Date Chigger bites 03/13/2024 10/25/2024 Overview (10/25/2024): Resolved. Assessment & Plan (04/09/2024 11:27 AM CDT): New problem/recurrent. He tends to get a moderate hypersensitivity reaction to chigger bites. He is familiar with the problem and gets them somewhat regularly. He has been applying OTC moderate potency steroid cream without any benefit. He wakes up at night scratching. He would like a Medrol Dosepak which he has taken before and tolerated well. We sent in a prescription. He is familiar with possible side effects. We recommended early follow-up if the rash does not resolve. Influenza A 09/23/2022 11/28/2022 Overview (11/28/2022): Saw KUSUM Fisher. Symptomatic Rx. Steroid burst and taper for wheezing. Assessment & Plan (09/23/2022 8:37 PM SUPPLY CHAIN PROCUREMENT MANAGER): Flu-like symptoms for 2 days. Tested positive for Influenza A in office today, negative for COVID. No PMH of acute lung disease. Intermittent expiratory wheezing on exam, no other acute findings. Discussed Tamilflu shortage in office today. Given mild symptoms and history, patient and provider agreed to NOT Rx Tamiflu. Did however Rx Prednisone burst and Albuterol inhaler for wheezing. Use OTC meds as needed for cough. Discussed Mucinex use to help thin mucous. Tylenol/Ibuprofen as needed for pain. Increase fluids (water) Cool mist humidifier at night Use sinus rinses to help flush bacteria and help with congestion. Encouraged honey, marshmallows, or chloraseptic to help coat throat. Call with any worsening or persistent symptoms lasting longer than 1 week. Acute non-recurrent sinusitis 12/12/2019 07/10/2020 Overview (07/10/2020): See office note, RAGHU Colon. Assessment & Plan (12/12/2019 2:23 PM CDT): Patient has congestion, headaches, rhinorrhea and cough most likely secondary to acute sinusitis. He began rx of Augmentin yesterday which he was instructed to complete as prescribed. Symptom management with Mucinex, tylenol, ibuprofen, sinus rinse, rest and fluids were encouraged. He is to call with worsening or persistent etiology. Cough 11/30/2019 07/10/2020 Overview (07/10/2020): See office note. Assessment & Plan (01/20/2020 3:44 PM CDT): He had a flare of his chronic smoker's cough. He was coughing up thick yellow sputum. We gave him a course of Augmentin and things seem to improve. 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 I doubt that the TEN is actually pathogenic in this setting. He has no fever or other new complaints. Lungs are clear. A follow-up chest x-ray shows no change. We will monitor clinically and radiographically for any needed additional intervention. Assessment & Plan (12/12/2019 2:21 PM CDT): Persistent cough that has worsened over the last 2 weeks, may be secondary to sinusitis. Patient had CXR completed today that revealed no PNA. There was an incidental finding of a 1.5cm lt chest density with concern for granuloma vs malignant nodule. This is a new finding as compared to last CXR 2 years ago. He will need CT of the chest for further evaluation. He was instructed to call to the coronavirus hotline given his symptoms for further screening and evaluation of testing need. He will at this time continue with albuterol inhaler and will be sent rx for tespaloma swanson. He is to call or go to ED with worsening symptoms or shortness of breath. Understanding verbalized. Bug bite 02/26/2018 06/28/2018 Assessment & Plan (03/12/2018 5:20 PM CDT): A couple of days ago, he fell asleep on the porch while watching a thunder storm. The next day he had a slightly itchy patch of erythematous skin on the left wrist volar surface consistent with a mosquito bite. He had several others in other areas as well. However, the left wrist bite seem to spread and was very slightly itchy. He applied neosporin and Prid salve. The inflammation and mild itching persisted, perhaps even worsened a bit. No fever or chills. Exam shows an irregularly shaped flat patch of inflamed skin with central scaliness. The borders are well-defined but the shape is irregular measures about 2 cm in largest diameter. There is no evidence of cellulitis or purulence. This looks like an allergic reaction, possibly to the Neosporin or Prid. He has stopped using the Neosporin. I recommend that he apply some of his triamcinolone cream to this area twice a day. He can keep it covered. Return in a week if not better. Differential diagnosis includes eczema, fungal dermatitis, and others. Bacterial sinusitis 11/22/2017 01/11/20 18 Frontal headache 11/18/2017 07/10/2020 Overview (07/10/2020): Waxing and waning, localized over right eye, worse with cough. See office note. Assessment & Plan (01/10/2018 12:12 PM CDT): His headache is essentially completely resolved with only a very mild residual after treatment for acute bacterial sinusitis. He has few days of antibiotics left. He will let me know if there is any relapse. Assessment & Plan (12/22/2017 9:45 AM CDT): This has bothered him since late October, waxing and waning. It is localized over the right eye and is worse when he coughs. Neurological exam is unremarkable including fundus exam. He plans to see his eye doctor for a follow-up of some retinal problems localized to the right eye, but I do not see any thing remarkable on direct ophthalmoscopy. It sounds like it might be a sinus infection, as it was initially associated with some upper and lower respiratory symptoms. Depending on response to antibiotics given for his prostate biopsy, we may need additional workup and treatment. Cough 10/28/2017 06/28/2018 Overview (12/22/2017): Improved with OTC meds, then relapsed. Assessment & Plan (01/10/2018 12:11 PM CDT): Cough is much better since being on antibiotics. He has almost completely quit smoking, only has a few cigarettes a day. Some days he does not smoke at all. Will continue cessation efforts. Assessment & Plan (12/28/2017 5:57 AM CDT): In late October, he developed a cough. It is productive of clear phlegm. It feels like something is stuck down there. He can't seem to get rid of it. He is a smoker and has been for many years. We will get a chest x-ray and proceed accordingly. As noted elsewhere, he is getting an antibiotic for a prostate procedure, so if he has some chronic bronchitis this might help. Additional follow-up will be needed, so we will have him come back in two weeks. Dizziness 10/24/2017 06/28/2018 Assessment & Plan (10/25/2017 9:30 AM SUPPLY CHAIN PROCUREMENT MANAGER): He continues to have a vague lightheadedness with changes in position, for example bending over. There is no vertigo. Exam is normal including perfectly normal tympanic membranes and canals. There is no nystagmus. Neurologically he is intact. He has no headache. Hopefully the dizziness or lightheadedness will improve with control of his blood pressure. If not, additional evaluation may be needed. Infected sebaceous cyst 09/02/201212/19 Overview (01/04/2021): Multiple sebaceous cysts over the years. Required drainage in 2019, others monitored. Assessment & Plan (08/01/2020 10:12 AM SUPPLY CHAIN PROCUREMENT MANAGER): Patient will continue to just keep an eye on the area. We discussed that the cyst may never reform. If it does began increasing in size they will call so that we may excise it before has a chance to get infected again. Assessment & Plan (07/18/2020 9:06 AM CDT): Will now just cover the opening with some Neosporin and a Band-Aid. We will then wait to see if the majority of the cyst wall has been removed or if it really developed. If this starts to happen will then set him up for excision to prevent it from increasing in size like before. Assessment & Plan (07/04/2020 8:46 AM CDT): About 50% less packing is able to be placed at this visit. The induration has improved significantly. They will continue to do this for a further week. We will see them back at that time period if everything looks healed we can discuss at that time definitive excision verses watchful waiting to see if it recurs Assessment & Plan (06/27/2020 2:24 PM CDT): Continue daily packing changes. Once the area fully heals in and the inflammation calms down will set him up for formal excision. We will see him back in 1 week Assessment & Plan (06/20/2020 9:08 AM CDT): The patient will continue the packing changes for 1 further week. We will then see if the area returns. If it does will then set him up for formal excision to include the entire cyst cavity. We will see him back in 1 more week to reassess Assessment & Plan (06/13/2020 10:31 AM CDT): Patient will continue to do the daily packing changes until it granulates in nicely. They were inquiring about removal of the cyst wall. However given the induration there is no way of being able to tell exactly where the wall would be period normally I would let this heal in and only if it would come back we would then excise it prior to it being able to get infected again. We will see him back next week to check the progression of it healing in. Assessment & Plan (05/21/2020 9:58 AM CDT): We discussed in office procedure of incision and drainage, along with wound care, pre-medication prior to wound care, and oral antibiotics. The patient agrees to the treatment plan. Assessment & Plan (10/23/2018 2:57 PM SUPPLY CHAIN PROCUREMENT MANAGER): He has a tendency to form sebaceous cysts. He has had several over the years including one on the lower back that was surgically drained a number of years ago. Others have been managed conservatively including a moderate-sized one on the upper margin of the left scapula and smaller ones elsewhere. In the past two days, he has had rapid enlargement of a sebaceous cyst just below the occiput. It is minimally tender. There has been no fever. Exam shows a sebaceous cyst from which a small to moderate amount of sebum was expelled. There is no redness or warmth or much tenderness. Recommend he apply warm soaks. He can also apply a home remedy that has worked in past called Hieu Lopez. I recommend that he see a surgeon for possible drainage of this sebaceous cyst because it has enlarged fairly rapidly over the last two days. Follow-up here as needed for this problem. Immunizations Immunization Administration Dates Next Due Influenza, Quad, Adjuvantate d, Intramuscular 06/16/2023 Influenza, Quadrivalent, Hig h Dose, Preservative Free, Intrr 06/30/2022,07/17/2021,07/17/2020 Influenza, Trivalent, High D ose, Split, Preservative Free, Intramuscular 07/19/2024,07/05/2019,06/29/2018 Influenza, Unspecified 07/19/2024(Deferred: Celina ent Refused) Moderna SARS-CoV-2 Monovalen t Vaccination (12+ YRS) 01/21/2021,2020 Pneumococcal Conjugate PCV 13 05/21/2017 Pneumococcal Polysaccharide PPV23 06/29/2018 RSV Vaccine, Pref, Recombina nt, Subunit, Adjuvanted, PF, IM (Arexvy) 10/05/2023 ZOSTER Recombinant 12/22/2023,08/23/2023 Social History Tobacco Use Types Packs/Day Years Used Date Smoking Tobacco: Some Days Cigarettes 0.5 61 Started: 12/20/1961 Smokeless Tobacco: Never Tobacco Cessation:Ready to Q uit: Not Asked; Counseling Given: Not Answered Alcohol Use Standard Drinks/Week Comments Yes 1 [...] on file Legal Sex Male 12:14 AM SUPPLY CHAIN PROCUREMENT MANAGER Gender Identity Not on file Sexual Orientation Not on file Occupation Industry Job Start Date Job End Date retired Not on file Not on file Not on file Last Filed Vital Signs Vital Sign Reading Time Taken Comments Blood Pressure 124/74 10/25/2024 9:03 AM SUPPLY CHAIN PROCUREMENT MANAGER Pulse 66 10/25/2024 9:03 AM SUPPLY CHAIN PROCUREMENT MANAGER Temperature 36.7 C (98 F) 10/25/2024 9:03 AM SUPPLY CHAIN PROCUREMENT MANAGER Respiratory Rate 16 10/25/2024 9:03 AM SUPPLY CHAIN PROCUREMENT MANAGER Oxygen Saturation 97% 10/25/2024 9:03 AM SUPPLY CHAIN PROCUREMENT MANAGER Inhaled Oxygen Concentration - - Weight 62.1 kg (137 lb) 11/14/2024 5:19 PM SUPPLY CHAIN PROCUREMENT MANAGER Height 172.7 cm (5' 8 ) 11/14/2024 5:19 PM SUPPLY CHAIN PROCUREMENT MANAGER Body Mass Index 20.83 11/14/2024 5:19 PM SUPPLY CHAIN PROCUREMENT MANAGER Plan of Treatment Not on file Procedures Procedure Name Priority Date/Time Associated Diagnosis Comments SCAN - RADIOLOGY/IMAGING 12/11/2024 10:[address] LUNG CANCER SCREENING Schedule Routine, Read Routine (OP Routine) 11/14/2024 5:19 PM SUPPLY CHAIN PROCUREMENT MANAGER Nicotine dependence, cigarettes, uncomplicated PSA SCREEN Routine 10/18/2024 3:36 PM SUPPLY CHAIN PROCUREMENT MANAGER Benign prostatic hyperplasia with urinary frequency Prostate cancer screening HEPATITIS B SURFACE ANTIGEN Routine 10/18/2024 3:36 PM SUPPLY CHAIN PROCUREMENT MANAGER Need for hepatitis B screening test HEPATITIS B SURFACE ANTIBODY (IMMUNE STATUS) Routine 10/18/2024 3:36 PM SUPPLY CHAIN PROCUREMENT MANAGER Need for hepatitis B screening test HEPATITIS B CORE ANTIBODY, TOTAL Routine 10/18/2024 3:36 PM SUPPLY CHAIN PROCUREMENT MANAGER Need for hepatitis B screening test HEPATITIS C ANTIBODY Routine 01/24/2020 8:50 AM CDT Encounter for hepatitis C screening test for low risk patient US ABDOMINAL AORTA Schedule Routine, Read Routine (OP Routine) 05/28/2017 8:37 AM CDT Essential hypertension Tobacco abuse HM COLONOSCOPY Routine 09/25/2015 from Last 3 Months or Most Recently Relevant to Health Maintenance Results * SCAN - RADIOLOGY/IMAGING (12/11/2024 10:39 AM CDT) Anatomical Region Laterality Modality Other us Tr Us MD Edited Result - Final * CT Lung Cancer Screening (11/14/2024 5:19 PM SUPPLY CHAIN PROCUREMENT MANAGER) Anatomical Region Laterality Modality Chest N/A Computed Tomogra phy 11/16/2024 10:1 3 AM SUPPLY CHAIN PROCUREMENT MANAGER Narrative 11/16/2024 10:27 AM SUPPLY CHAIN PROCUREMENT MANAGER EXAM DESCRIPTION: CT LUNG CANCER SCREENING REASON FOR STUDY: Screening CT of the chest in a current smoker with a 30.5 pack year smoking history. Additional history: Additional history on the previous chest CT dated 01/05/2023 included asbestos exposure.. TECHNIQUE: Low dose CT scan of the chest was performed without intravenous contrast using helical scanning technique. The exam extends from the lung apices through the lung bases. Automatic exposure control was used as a dose optimization technique. NOTE: This study was performed for the specific purposes of lung cancer screening and is not an alternative to diagnostic chest CT. RADIATION DOSE: CT dose index volume (CTDIvol) = 1.19 mGy COMPARISON: Low-dose lung cancer screening chest CT dated 01/05/2023, 01/02/2022 and 08/20/2021. FINDINGS: SMOKING RELATED LUNG DISEASE: Centrilobular and paraseptal emphysema is redemonstrated. There is bilateral bronchial wall thickening/bronchiectasis. LUNG NODULES: Bilateral pulmonary nodules are again seen. For example right middle lobe 4 mm (series 2, image 195), right middle lobe medial margin subpleural 2 mm (series 2, image 222), right middle lobe lateral margin 5 mm (series 2, image 260). Left upper lobe large calcified granuloma is again seen. Nodular opacity in the left upper lobe lateral margin (series 2, image 254) is similar. There is linear atelectasis on both sides. CORONARY ARTERY CALCIFICATION: Present. OTHER: The evaluation limited by low-dose technique CT. Subcentimeter mediastinal lymph nodes as seen previously. Evaluation for hilar adenopathy is limited without intravenous contrast. The heart is similar in size. Calcified plaque in the thoracic aorta. Ascending aorta measuring up to 3.9 cm as noted previously. The evaluation of the upper abdomen is limited on this low-dose unenhanced chest CT technique. There are vascular calcifications. The thoracic vertebral body heights and anterior-posterior alignment is similar. Thoracolumbar and right shoulder degenerative changes as seen previously. IMPRESSION: Pulmonary emphysema and bilateral pulmonary nodules as seen on the previous chest CT dated 01/05/2023. Additional findings as above. Lung-RADS category 2: Benign appearance or behavior. Recommendation: Low dose Screening CT of chest in 12 months. THIS IS AN ELECTRONICALLY VERIFIED FINAL REPORT 11/16/2024 10:27 AM - Electronically signed by Pete Jeong D.O. AP: AP Report ID: [id number] Reading Location: [id number] Procedure Note Pete Jeong, DO - 11/16/2024 EXAM DESCRIPTION: CT LUNG CANCER SCREENING REASON FOR STUDY: Screening CT of the chest in a current smoker with a 30.5 pack year smoking history. Additional history: Additional history onthe previous chest CT dated 01/05/2023 included asbestos exposure.. TECHNIQUE: Low dose CT scan of the chest was performed without intravenous contrast using helical scanning technique. The exam extends from the lung apices through the lung bases. Automatic exposure control was used as adose optimization technique. NOTE: This study was performed for the specific purposes of lung cancer screening and is not an alternative to diagnostic chest CT. RADIATION DOSE: CT dose index volume (CTDIvol) = 1.19 mGy COMPARISON: Low-dose lung cancer screening chest CT dated 01/05/2023, 01/02/2022 and 08/20/2021. FINDINGS: SMOKING RELATED LUNG DISEASE: Centrilobular and paraseptal emphysema is redemonstrated. There is bilateral bronchial wallthickening/bronchiectasis. LUNG NODULES: Bilateral pulmonary nodules are again seen. For exampleright middle lobe 4 mm (series 2, image 195), right middle lobe medial margin subpleural 2 mm (series 2, image 222), right middle lobe lateral margin 5mm (series 2, image 260). Left upper lobe large calcified granuloma is again seen. Nodular opacityin the left upper lobe lateral margin (series 2, image 254) is similar.There is linear atelectasis on both sides. CORONARY ARTERY CALCIFICATION: Present. OTHER: The evaluation limited by low-dose technique CT. Subcentimeter mediastinal lymph nodes as seen previously. Evaluation for hilaradenopathy is limited without intravenous contrast. The heart is similar in size. Calcified plaque in the thoracic aorta. Ascending aorta measuring up to3.9 cm as noted previously. The evaluation of the upper abdomen is limited on this low-dose unenhanced chest CT technique. There are vascular calcifications. The thoracic vertebral body heights andanterior-posterior alignment is similar. Thoracolumbar and right shoulder degenerativechanges as seen previously. IMPRESSION: Pulmonary emphysema and bilateral pulmonary nodules as seen on theprevious chest CT dated 01/05/2023. Additional findings as above. Lung-RADS category 2: Benign appearance or behavior. Recommendation: Low dose Screening CT of chest in 12 months. THIS IS AN ELECTRONICALLY VERIFIED FINAL REPORT 11/16/2024 10:27 AM - Electronically signed by Pete Jeong D.O. AP: AP Report ID: [id number] Reading Location: [place] [address] us Tr Us MD IMG CT PROCEDURES Final Resul t * (ABNORMAL) PSA screen (10/18/2024 3:36 PM SUPPLY CHAIN PROCUREMENT MANAGER) PSA-Total 11.10(H) <=6.20 ng/mL Comment: Interpretive Data AGE SEX REFERENCE INTERVAL 0 minutes-150 years Female None 0 minutes-49 years Male None 50-59 years Male 0-3.90 60-69 years Male 0-5.40 70-79 years Male 0-6.20 80-150 years Male 0-6.20 The Anna PSA Total assay procedure was used. Results from different manufacturers or methods may not be comparable. Serial testing should be performed using the same method. Current interpretive data last revised 22. Testing performed by: [facility], [address] [place] [address], [place]., [address] Blood 10/18/2024 3:36 PM SUPPLY CHAIN PROCUREMENT MANAGER 10/18/2024 8:33 PM SUPPLY CHAIN PROCUREMENT MANAGER us Tr Us MD LAB BLOOD ORDERABLES Final Re sult Performing Organization Address [facility]/ZIP Co de Phone Number [employer] [phone] [address] [place] [address] * Hepatitis B core antibody, total Blood (10/18/2024 3:36 PM SUPPLY CHAIN PROCUREMENT MANAGER) Hep B core IgG/IgM Nonreactive Nonreactive Comment:Testing performed by : [facility], [address] [place]., [address] Blood 10/18/2024 3:36 PM SUPPLY CHAIN PROCUREMENT MANAGER 10/19/2024 10:00 AM SUPPLY CHAIN PROCUREMENT MANAGER Tr Us MD LAB MICROBIOLOGY - GENERAL OR DERABLES Final Result Performing Organization Address [facility] [facility] Co de Phone Number GINA SEALS [id number] [place] [address] * Hepatitis B surface antibody (immune status) Blood (10/18/2024 3:36 PM SUPPLY CHAIN PROCUREMENT MANAGER) HBsAb (immune status) Nonreactive Comment: Interpretive Data Nonreactive: This result is consistent with a lack of immunity to Hepatitis B Virus when used in the setting of routine screening. Equivocal: The immune status of the individual should be further assessed, if appropriate, after consideration of clinical status, risk factors, and additional diagnostic information. Reactive: This result is consistent with immunity to Hepatitis B Virus when used in the setting of routine screening. Current interpretive data was last revised on 19. Testing performed by: [facility], [address] [place] [address]., [id number] Blood 10/18/2024 3:36 PM SUPPLY CHAIN PROCUREMENT MANAGER 10/18/2024 8:33 PM SUPPLY CHAIN PROCUREMENT MANAGER Tr Us MD LAB MICROBIOLOGY - GENERAL OR DERABLES Final Result Performing Organization Address [facility] Co de Phone Number GINA SEALS [id number] [address] [place] [address] * Hepatitis B Surface Antigen Blood (10/18/2024 3:36 PM SUPPLY CHAIN PROCUREMENT MANAGER) HepBsAg Nonreactive Nonreactive Comment:Testing performed by : [facility], [address] [place] [address], [place]., [address] Blood 10/18/2024 3:36 PM SUPPLY CHAIN PROCUREMENT MANAGER 10/18/2024 8:33 PM SUPPLY CHAIN PROCUREMENT MANAGER Tr Us MD LAB MICROBIOLOGY - GENERAL OR DERABLES Final Result Performing Organization Address [facility] de Phone Number GINA [phone] [facility] [place] [address] * Hepatitis C antibody (01/24/2020 8:50 AM CDT) Hep C Ab Nonreactive Nonreactive [place]IRT[place]AM[place] Comment: Interpretive Data Nonreactive: Antibodies to HCV not detected. Does NOT exclude the possibility of recent exposure to HCV. Equivocal: Equivocal for HCV antibodies. Supplemental molecular testing will be automatically performed to determine infection status in accordance with current CDC screening recommendations. Reactive: Positive for HCV antibodies. This may represent current or past HCV infection. Supplemental molecular testing will be automatically performed to determine current infection status in accordance with current CDC screening recommendations. Interpretive data was last revised on 2019. Blood specimen (specimen) 01/24/2020 8:50 AM CDT 01/24/2020 1:41 PM CDT Tr Us MD LAB MICROBIOLOGY - GENERAL OR DERABLES Final Result Performing Organization Address [facility] de Phone Number GINA [phone] [facility] [place] [address] * US Abdominal Aorta (05/28/2017 8:37 AM CDT) Anatomical Region Laterality Modality Abdomen N/A Ultrasound Impressions 05/31/2017 2:45 PM CDT 1. Ultrasound of the abdominal aorta negative for focal aneurysm. 2. The superior abdominal aorta measures a maximum of 2.8 cm in AP dimension. Narrative 05/31/2017 2:45 PM CDT DIGITAL ABDOMINAL AORTA ULTRASOUND: Ultrasound of the abdominal aorta was performed. The abdominal aorta measures a maximum of 2.2 x 2.8 cm in the transverse and AP planes proximally. The mid and distal aorta measure a maximum of 2.0 and 1.9 cm. The common iliac arteries measure a maximum of 1.0 cm. us Tr Us MD IMG US PROCEDURES Final Resul t * COLONOSCOPY (09/25/2015) Colonoscopy Abnormal Comment:Multiple polyps rese cted, [facility], Dr. Mendiola us Faustino Mendiola MD HEALTH MAINTENANCE Final Result from Last 3 Months or Most Recently Relevant to Health Maintenance Insurance MEDICARE [facility] [id number] [facility] MEDICARE [employer] [facility] Address: [address] [address] [place] [address] [facility] Address: [address] [address] [place] [address] [facility] Address: [address] [address] [place] [address] Care Teams Rn Navigator Relationship Specialty Start Date End Date Tr Us MD [address] [place] [address] PCP - General Infectious Diseases 05/21/17 Brian Nascimento MD [address] [address] Consulting Physician Urology 05/21/11 Nayely Huntley MD [address] [address] Consulting Physician Ophthalmology 05/21/17 Kamron Rey MD [address] [address] Consulting Physician Anesthesiology 05/21/17 Faustino Mendiola MD [address] [address] Consulting Physician Gastroenterology 06/28/17 Bob Ocasio MD [address] [place] [address] [address] [place] [address] Consulting Physician Orthopedic Surgery 11/18/21 Aki Mcgill Ud, MD [address] [place] [address] DR [address] [place] [address] Consulting Physician Surgery 12/22/21 Phani Farrar MD [address] [place] [address] DR [address] [place] [address] Consulting Physician Pain Management 03/16/22 Manjinder Nascimento MD [address] [facility] [address] [place] [address] Surgeon Orthopedic Surgery 12/18/22 Curt Reyes MD [address] [address] Consulting Physician Otolaryngology 05/23/23
--- OUTSIDE RECORDS SUMMARY | 2025-01-03 00:22 | XMS_ITS ---
Care Plan - [facility] Created on: January 03, 2025 YOEL WELLS : 1945 Sex: Male Author Organization [facility] Address [address] [place] [address] Phone Care Team Providers Care Disassembler Product Name Role Phone KAI BUSCH Unavailable [phone] VIMAL MOHAN MD Unavailable [phone]
--- OUTSIDE RECORDS SUMMARY | 2025-01-03 00:22 | XMS_ITS | Clinical Summary ---
Author Organization [facility] [address] Address [address] [place] [address] Phone Care Team Providers Care C4 Planner Name Role Phone Tr Us MD Primary Care Provider [phone] Brian Nascimento MD Unavailable [phone] Nayely Huntley MD Unavailable [phone] Kamron Rey MD Unavailable [phone] Faustino Mendiola MD Unavailable [phone] Bob Ocasio MD Unavailable [phone] Aki Mcgill Ud, MD Unavailable Phani Farrar MD Unavailable [phone] Manjinder Nascimento MD Unavailable [phone] Curt Reyes MD Unavailable [phone] Allergies Active Allergy Reactions Criticality Noted Date Comments Jpluwdb-Znm-Nvd Reductase Inhibitors Muscle pain Medium 01/31/2021 Muscle [...] 09/20/2024 Assessment & Plan (10/25/2024 9:22 AM PILER): New problem, resolved with polyethylene glycol, follow up colonoscopy planned at [facility] December 29. Subacute cough 07/05/2024 Assessment & Plan (07/23/2024 6:26 PM PILER): Acute problem, uncontrolled. He started coughing about [...] 10/21/2023 Overview (12/27/2023): Had a screening at [facility], peak velocity 64 m/s on left and 73 m/sec on right. Assessment & Plan (04/09/2024 11:26 AM CDT): Chronic, not critical, now taking cholesterol medicine and a low-dose aspirin to reduce risk. He is tolerating things well. Continue same. Assessment & Plan (12/27/2023 8:50 PM CDT): There was a health screening at [facility] two months ago. They reported moderate bilateral carotid artery stenosis based on increased velocities. We will get carotid Dopplers to reassess. We discussed possible daily aspirin therapy depending on the results. He already takes Zetia but he does not tolerate statins. Gallstone 10/21/2023 Overview (12/27/2023): Asymptomatic, seen on [facility] screen at [facility]. Assessment & Plan (12/27/2023 11:16 AM CDT): His [facility] had a health screening and they found [...] 05/26/2023 Assessment & Plan (11/02/2023 11:57 AM PILER): His hearing seems to be stable. His [...] questions. Assessment & Plan (09/27/2023 1:10 PM PILER): He still has trouble hearing from the [...] 04/30/2023 Assessment & Plan (10/31/2024 6:49 AM PILER): Chronic/intermittent, noted about 18 months ago, responds [...] cancer. Assessment & Plan (10/25/2024 3:47 AM PILER): Chronic, small, diagnosed about two years ago, managed with blood pressure control on olmesartan-hydrochlorothiazide 20-12.5 mg daily, monitored on annual low-dose CT scan of the chest. Shortness of breath 09/25/2022 Assessment & Plan (09/25/2022 4:21 PM PILER): LIkely caused by esophageal spas, see plan below. Esophageal spasm 09/25/2022 Assessment & Plan (09/25/2022 4:21 PM PILER): likely what caused episode where he couldn't [...] EKG 11/30/2020 Overview (01/14/2021): See EKG at [place] showing RBBB, LAFB and LVH. Echo at [facility] on 01/14/2021: Normal left ventricular systolic function [...] 10:08 AM CDT): A preoperative EKG at [place] on 11/30/2020 showed a right bundle branch block, left anterior fascicular block, and LV hypertrophy. He is basically asymptomatic from a cardiovascular standpoint. We did get an echocardiogram at [facility] on 01/14/2021 which showed the following: Normal [...] year, he had a preoperative EKG at [place] [facility] which was sent here. It showed a [...] on left. 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 Follow-up CT at [facility] on 01/05/2023: No new nodules. Smoking related moderate emphysema and bronchial wall thickening. Small 3.9 cm ascending aortic aneurysm. Assessment & Plan (10/31/2024 6:48 AM PILER): Chronic, noted about five years ago and followed on periodic CT scans. Follow-up imaging ordered. Assessment & Plan (04/16/2022 11:15 AM CDT): He had another CT scan about two months ago which showed stable findings. Follow-up is planned in one year. Assessment & Plan (01/14/2022 10:39 AM CDT): A follow-up CT scan at [facility] about a week ago showed no change compared to a year ago. We will continue to monitor it annually. 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 Assessment & Plan (10/19/2020 10:42 AM PILER): Weight is stable. He denies cough or [...] 03/20/2018 Assessment & Plan (10/31/2024 6:50 AM PILER): Chronic, present for 6-7 years or more, poor control, treated with intermittent interventions by pain management. Assessment & Plan (07/23/2024 6:25 PM PILER): Chronic, currently uncontrolled and experiencing a flare [...] same. Assessment & Plan (09/29/2023 9:16 AM PILER): He reduced the dose of gabapentin from [...] down. Assessment & Plan (10/17/2021 11:52 AM PILER): Hands, lower back and left hip are [...] him. Assessment & Plan (10/11/2020 9:35 AM PILER): Lately is hips have been bothering him [...] tunnel syndrome 03/20/2018 Overview (10/11/2020): Saw Dr. Kim in [place], had right side done, left side now bothering him. Assessment & Plan (10/11/2020 9:36 AM PILER): About three years ago he had right carpal tunnel syndrome operated by Dr. Kim in [place]. He had a good result. Now the left hand has been bothering him and he plans to go back to Dr. Kim for further evaluation. Elevated PSA 12/09/2017 Overview (06/13/2023): Followed by Dr. Nascimento. Biopsy in about January 2018 still negative, #3 over the past 5 years or so. MRI of prostate at [facility]-rads-2 in 2019. Assessment & Plan (10/25/2024 3:48 AM PILER): Chronic, present for 6-7 years, stable. Previous [...] months. Assessment & Plan (10/19/2020 10:47 AM PILER): He says his PSA has come down a little bit on an cyyp-rli-voxgffe herbal remedy, possibly saw palmetto. He sees [...] 03/20/2012 Assessment & Plan (09/04/2022 11:02 AM PILER): He will be seeing Dr. Nascimento in [...] orthopedics. Assessment & Plan (10/17/2021 11:54 AM PILER): His left hip has been a problem for years, but is getting worse. He has an appointment to see Dr. Ocasio, orthopedics at [facility]. He thinks the hip might need to be replaced. In the meantime he would like to try a Medrol Dosepak. He has had them before. We discussed the potential risks or oral steroids. BPH (benign prostatic hyperplasia) 05/21/2011 Overview (01/10/2020): Sees Dr. Nascimento, has elevated PSA, had negative biopsies. Has urinary frequency. Assessment & Plan (10/25/2024 3:47 AM PILER): Chronic, present for decades, patient takes a supplement called PROSTATE THERAPY ORAL. Assessment & Plan (07/23/2024 6:24 PM PILER): Chronic, present for about 15 years, associated [...] biopsies. Assessment & Plan (09/27/2023 12:59 PM PILER): No new urinary symptoms reported. Previously biopsies [...] 01/09/2022 Assessment & Plan (09/04/2022 10:59 AM PILER): He no longer sees Dr. Nascimento. We [...] 01/09/2022 Assessment & Plan (10/17/2021 11:56 AM PILER): He has an elevated PSA. A prostate MRI ordered by his urologist, Dr. Nascimento, was negative for worrisome findings. He would like to have a follow up PSA with next labs, which we ordered. Assessment & Plan (08/16/2021 10:07 AM PILER): He has had some problems with urinary frequency in the past. Currently nocturia only occurs rarely. He denies dysuria or hematuria. He will follow-up with Dr. Nascimento. Assessment & Plan (04/14/2021 11:32 AM CDT): PSA tests are high, but biopsies and MRI are negative. He will follow up with Dr. Nascimento. Assessment & Plan (10/11/2020 9:38 AM PILER): He denies dysuria or hematuria. He sees [...] Urology. Assessment & Plan (11/07/2017 7:45 AM PILER): He asked about PSA testing which has [...] that he discuss this further with Dr. Nascimento and his office. Perhaps a three month follow-up PSA would be reasonable. Essential hypertension 05/21/2007 Assessment & Plan (10/31/2024 6:47 AM PILER): Chronic, present for 15 or more years, [...] labs. Assessment & Plan (09/27/2023 1:02 PM PILER): Systolic blood pressure is minimally elevated on [...] visit. Assessment & Plan (09/23/2022 8:35 PM PILER): Borderline in office today on current therapy. No acute exam findings. Continue current therapy and low salt diet. Assessment & Plan (09/04/2022 11:01 AM PILER): BP is running a little high in [...] range. Assessment & Plan (11/01/2021 7:34 PM PILER): Systolic BP is midly elevated, possibly in [...] same. Assessment & Plan (10/11/2020 9:37 AM PILER): Blood pressure is in a good range. [...] months. Assessment & Plan (11/07/2017 7:43 AM PILER): Blood pressures are still running too high. He brought in a sheet of home blood pressures that we are scanning into the record. He bought a home blood pressure cuff and has never checked home blood pressures prior to this. Most likely, his blood pressures have been running high chronically, but we are trying to get them down. He denies taking zxun-pwh-wcwrmiz medicines that contain decongestants, even though he [...] statins. Assessment & Plan (10/25/2024 3:49 AM PILER): Chronic, intolerant of statin medication. Takes ezetimibe 10 mg daily. Follow-up labs ordered. Assessment & Plan (07/23/2024 6:24 PM PILER): Chronic, present for more than 15 years, [...] 03/05/2023 Assessment & Plan (09/27/2023 1:09 PM PILER): He is not tolerant of statins. He [...] pressure. Assessment & Plan (09/04/2022 11:02 AM PILER): He is intolerant of statins. He is on Zetia. Continue same. Assessment & Plan (04/16/2022 11:15 AM CDT): He is intolerant of statins but is taking Zetia. Continue same and monitor labs periodically. Assessment & Plan (01/14/2022 10:39 AM CDT): He is on Zetia, tolerating well. Continue same. Assessment & Plan (10/17/2021 11:53 AM PILER): He is on Zetia, is intolerant of statins. We will check lipids before his next visit. Assessment & Plan (08/16/2021 10:08 AM PILER): He is intolerant of statins, but is [...] same. Assessment & Plan (10/11/2020 9:36 AM PILER): He is intolerant of statins but is [...] 05/21/2007 Assessment & Plan (07/23/2024 6:26 PM PILER): Chronic, present for more than 15 years, [...] L5-S1. Assessment & Plan (09/29/2023 9:16 AM PILER): A MILD procedure he is planned but [...] low. Assessment & Plan (09/04/2022 11:00 AM PILER): He is seeing Dr. Farrar in [place], and had relief of sciatica from a nerve ablation, but the left hip pain persists. He got a referral to Dr. Nascimento for a possible labral tear. We will get reports of the hip imaging. Assessment & Plan (06/16/2022 6:57 AM CDT): He saw Dr. Farrar in [place]. He has been through some therapeutics including local injections. Tramadol was also prescribed to supplement diclofenac and occasional Tylenol. Assessment & Plan (04/27/2022 9:02 AM CDT): He is now seeing Dr. Phani Farrar in [place]. He got an injection and some physical [...] a second opinion from Dr. Farrar in [place]. Assessment & Plan (08/16/2021 10:07 AM PILER): He has flares of low back pain now and then. He is planning to see a chiropractor today for an assessment and possible treatments. His has had good results for her fibrositis and hip pain. Assessment & Plan (01/10/2021 10:27 AM CDT): He wanted a referral for possible pain management, just informational at this point. We suggested Dr. Juarez at [facility]. The yard work has been hard on [...] adenomas x 2 removed, 09/25/2015, Dr. Mendiola, [facility]. Assessment & Plan (03/10/2023 9:24 AM CDT): He is overdue for a colonoscopy and we reminded him to schedule this with his GI physician, Dr. Zavala, at [facility]. 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 Most prominent on bilateral flanks. 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 It responds to triamcinolone cream. Exam today shows no definite acute rash. Continue to monitor clinically. Assessment & Plan (12/28/2017 5:59 AM CDT): He has a fairly nonspecific, eczematous type rash in patches on his forearms that has been present for many years. It seems to relate to some exposure at [facility] many years ago. It responds to triamcinolone cream which we refilled today. Tobacco use disorder 05/21/1963 Overview (05/21/2017): Has tried to quit multiple times. Assessment & Plan (10/25/2024 3:51 AM PILER): Chronic, present for decades, uncontrolled as he has been unable to quit. We recommended continued efforts. Assessment & Plan (07/23/2024 6:27 PM PILER): Chronic, uncontrolled, present for more than 50 years. He reports smoking less but not able to quit. We encouraged him to try nevertheless, and gave him appropriate resources. Assessment & Plan (12/27/2023 11:17 AM CDT): He continues to smoke cigarettes. He is trying to cut back and we encouraged his efforts. Assessment & Plan (09/27/2023 1:13 PM PILER): He is trying to quit. We encouraged his efforts. Assessment & Plan (06/14/2023 10:27 AM CDT): He is up-to-date on low-dose CT scanning of the chest. Assessment & Plan (12/04/2022 10:47 AM CDT): We again encouraged smoking cessation. Low-dose CT will be due next month. Assessment & Plan (09/04/2022 11:03 AM PILER): He continues to smoke. A follow up [...] efforts. Assessment & Plan (11/01/2021 7:33 PM PILER): He is still smoking a little. We encouraged his continued efforts to quit. Assessment & Plan (08/16/2021 10:10 AM PILER): He continues to smoke about the same. [...] elsewhere. Assessment & Plan (10/11/2020 9:34 AM PILER): He is still smoking, not very much [...] wheezing. Assessment & Plan (09/23/2022 8:37 PM PILER): Flu-like symptoms for 2 days. Tested positive [...] 06/28/2018 Assessment & Plan (10/25/2017 9:30 AM PILER): He continues to have a vague lightheadedness [...] monitored. Assessment & Plan (08/01/2020 10:12 AM PILER): Patient will continue to just keep an [...] plan. Assessment & Plan (10/23/2018 2:57 PM PILER): He has a tendency to form sebaceous [...] Follow-up here as needed for this problem. Encounters Date Type Department Care Team Description 12/11/2024 Results Follow-Up [facility] [address] [facility] [address] [place] [address] Tr Us MD 12/11/2024 Orders Only [facility] [address] [place] [address] Tr Us MD 11/18/2024 Telephone [facility] [address] [facility] [facility] [address] [place] [address] Tr Us MD 11/18/2024 Results Follow-Up [facility] [address] [facility] [address] [place] [address] Tr Us MD 11/14/2024 4:26 PM PILER - 11/14/2024 11:59 PM PILER Hospital Encounter [address] [address] Nicotine dependence, cigarettes, uncomplicated Discharge Disposition: Discharge to home or self care 11/10/[address] [address] Chloe Zhang RN 10/26/2024 [facility] Accountable Care Organization [address] [place] [address] Jessenia Bell 10/25/2024 9:00 AM PILER Office Visit [facility] [address] [facility] [address] [place] [address] Tr Us MD Medicare annual wellness visit, subsequent (Primary Dx); Essential hypertension; Mixed hyperlipidemia; Benign prostatic hyperplasia with urinary frequency; Elevated PSA; Primary osteoarthritis involving multiple joints; Aneurysm of ascending aorta without rupture; Tobacco use disorder; Nodule of left lung; Other atopic dermatitis; Other constipation; Nicotine dependence, cigarettes, uncomplicated 10/18/2024 9:40 AM PILER Lab [facility] [address] [facility] [address] [place] [phone] Benign prostatic hyperplasia with urinary frequency; Prostate cancer screening; Need for hepatitis B screening test from Last 3 Months Immunizations Immunization Administration Dates Next Due Influenza, [...] PF, IM (Arexvy) 10/05/2023 ZOSTER Recombinant 12/22/2023,08/23/2023 Surgical History Surgery Date Site/Laterality Comments HM COLONOSCOPY 09/25/2015 At least 2 adenomatous polyps resected, Dr. Mendiola, [facility]. CATARACT EXTRACTION, BILATERAL 09/20/2016 - 10/20/2016 Bilateral Nayely Huntley MD, [facility] RETINA SURGERY 01/18/2017 - 02/17/[address] Davis, [facility]. PROSTATE BIOPSY 01/06/2018 Negative, Dr. Nascimento office. INCISION AND DRAINAGE 10/12/2018 Sebaceous cyst at base of neck, Dr. Casiano, [facility]. HERNIA REPAIR 09/20/2009 - 09/19/2010 Hernia repair INGUINAL HERNIA REPAIR 10/04/2006 Left Repair left inguinal hernia with mesh, Dr. Mcduffie CARPAL TUNNEL RELEASE 10/12/2017 Dr. Kim in [place]. CARPAL TUNNEL RELEASE 12/03/[address] Hayde Kim, [facility]. ROTATOR CUFF REPAIR 09/20/2007 - 09/19/2008 Right Repair partial right rotator cuff INJECTION FOR ARTHROGRAM HIP 06/24/2022 Left Degenerative changes of labrum and hip cartilage, extensive sigmoid diverticulosis, [facility]. Pain relief after local anesthetic injection in left hip joint. [facility]. MYRINGOTOMY 05/25/2023 Left Utilizing topical phenol anesthesia a left sided myringotomy was performed. TM mildly retracted but no evidence of fluid noted. Dr. Curt Reyes. Medical History Medical History Date Comments Bacterial sinusitis 11/22/2017 Bug bite 02/26/2018 Cough 10/28/2017 Improved with OT C meds, then relapsed. Dizziness 10/24/2017 Chicken pox 195 Acute non-recurrent sinusitis 12/12/2019 Se e office note, [facility] Colon. Cough 11/30/2019 See office note. Frontal headache 11/18/2017 Waxing and sreedhar ng, localized over right eye, worse with cough. See office note. Infected sebaceous cyst 09/02/2012 Multiple sebaceous cysts over the years. Required drainage in 2019, others monitored. Osteoarthritis Hyperlipidemia Hyperlipidemia Hypertension Osteoarthritis Influenza A 09/23/2022 Saw Cristian Fisher NP. Symptomatic Rx. Steroid burst and taper for wheezing. HL (hearing loss) Chigger bites 03/13/2024 Resolved. Family History Medical History Relation Name Comments Arthritis Father Coronary artery disease Father Sudd en Gout Father Heart disease Father Hypertension Father Arthritis Mother Deep vein thrombosis Mother Stroke Mother Relation Name Status Comments Father Mother Social History Tobacco Use Types Packs/Day Years [...] on file Legal Sex Male 12:14 AM PILER Gender Identity Not on file Sexual Orientation Not on file Occupation Industry Job Start Date Job End Date retired Not on file Not on file Not on file Obstetrics History Last Filed Vital Signs Vital Sign Reading Time Taken Comments Blood Pressure 124/74 10/25/2024 9:03 AM PILER Pulse 66 10/25/2024 9:03 AM PILER Temperature 36.7 C (98 F) 10/25/2024 9:03 AM PILER Respiratory Rate 16 10/25/2024 9:03 AM PILER Oxygen Saturation 97% 10/25/2024 9:03 AM PILER Inhaled Oxygen Concentration - - Weight 62.1 kg (137 lb) 11/14/2024 5:19 PM PILER Height 172.7 cm (5' 8 ) 11/14/2024 5:19 PM PILER Body Mass Index 20.83 11/14/2024 5:19 PM PILER Plan of Treatment Health Maintenance Due Date Last Done Comments Covid-19 Vaccine (2023-10 5 season) 2024 06/16/2023, 07/06/2022, 08/21/2021, Additional history exists Depression Screening 10/25/2025 10/25/2024, 09/27/2023, 09/04/2022, Additional history exists Fall Risk Assessment 10/25/2025 10/25/2024, 09/27/2023, 09/04/2022, Additional history exists Well Visit 65+ 10/25/2025 10/25/2024, 04/2024, 09/04/2022, Additional history exists Lung Cancer Screening 11/15/2025 11/14/2024 , 01/06/2023, 01/05/2023, Additional history exists Colon Cancer Screening-CT Colonography Discontinued 09/25/2015 Colon Cancer Screening-Colonoscopy Discontinued 09/25/2015 Colon Cancer Screening-DNA Stool Discontinued 09/25/19 Colon Cancer Screening-FIT Discontinued 09/25/2015 Colon Cancer Screening-FOBT Discontinued 09/25/2015 Colon Cancer Screening-Sigmoidoscopy Discontinued 09/25/2015 Colorectal Cancer Screening Discontinued Abdominal Aortic Aneurysm (A AA) Screen Completed 05/28/2017, 05/28/2017 Pneumococcal vaccine 65+ Completed 06/29/2018, 09/2016 Hepatitis C Screening Completed 01/24/2020 Zoster Vaccine Completed 12/22/2023, 08/23/2023 Influenza Vaccine Completed 07/19/2024, , 06/30/2022, Additional history exists Hepatitis B Screening Completed 10/18/2024 DTaP/Tdap/Td Vaccine Discontinued Procedures Procedure Name Priority Date/Time Associated Diagnosis Comments SCAN - RADIOLOGY/IMAGING 12/11/2024 10:[address] LUNG CANCER SCREENING Schedule Routine, Read Routine (OP Routine) 11/14/2024 5:19 PM PILER Nicotine dependence, cigarettes, uncomplicated PSA SCREEN Routine 10/18/2024 3:36 PM PILER Benign prostatic hyperplasia with urinary frequency Prostate cancer screening HEPATITIS B SURFACE ANTIGEN Routine 10/18/2024 3:36 PM PILER Need for hepatitis B screening test HEPATITIS B SURFACE ANTIBODY (IMMUNE STATUS) Routine 10/18/2024 3:36 PM PILER Need for hepatitis B screening test HEPATITIS B CORE ANTIBODY, TOTAL Routine 10/18/2024 3:36 PM PILER Need for hepatitis B screening test HEPATITIS [...] CT Lung Cancer Screening (11/14/2024 5:19 PM PILER) Anatomical Region Laterality Modality Chest N/A Computed Tomogra phy 11/16/2024 10:1 3 AM PILER Narrative 11/16/2024 10:27 AM PILER EXAM DESCRIPTION: CT LUNG CANCER SCREENING REASON [...] Pete Jeong D.O. AP: AP Report ID: [id number] Reading Location: [id number] Procedure Note JeongClarkePete, DO - 11/16/2024 EXAM DESCRIPTION: CT LUNG [...] Pete Jeong D.O. AP: AP Report ID: [id number] Reading Location: [place] [address] us Tr Us MD IMG CT PROCEDURES Final Resul t * (ABNORMAL) PSA screen (10/18/2024 3:36 PM PILER) PSA-Total 11.10(H) <=6.20 ng/mL Comment: Interpretive Data [...] data last revised 22. Testing performed by: [facility], [address] [place] [address]., [id number] Blood 10/18/2024 3:36 PM PILER 10/18/2024 8:33 PM PILER us Tr Us MD LAB BLOOD ORDERABLES Final Re sult [facility] [address] [facility] Department [place] [address] * Hepatitis B core antibody, total Blood (10/18/2024 3:36 PM PILER) Hep B core IgG/IgM Nonreactive Nonreactive Comment:Testing performed by : [facility], [address] [place]., [address] Blood 10/18/2024 3:36 PM PILER 10/19/2024 10:00 AM PILER us Tr Us MD LAB MICROBIOLOGY - GENERAL OR DERABLES Final Result Performing Organization Address [facility] Co de Phone Number GINA [phone] [address] [facility] [place] [address] * Hepatitis B surface antibody (immune status) Blood (10/18/2024 3:36 PM PILER) HBsAb (immune status) Nonreactive Comment: Interpretive Data [...] last revised on 19. Testing performed by: [address] [address] Blood 10/18/2024 3:36 PM PILER 10/18/2024 8:33 PM PILER us Tr Us MD LAB MICROBIOLOGY - GENERAL OR DERABLES Final Result Performing Organization Address [facility] de Phone Number [facility] [address] [address] [facility] [place] [address] * Hepatitis B Surface Antigen Blood (10/18/2024 3:36 PM PILER) HepBsAg Nonreactive Nonreactive Comment:Testing performed by : [address] [address] Blood 10/18/2024 3:36 PM PILER 10/18/2024 8:33 PM PILER us Tr Us MD LAB MICROBIOLOGY - GENERAL OR DERABLES Final Result Performing Organization Address [facility] de Phone Number GINA [phone] [place] [place] [address] * Hepatitis C antibody (01/24/2020 8:50 AM CDT) [facility] Hep C Ab Nonreactive Nonreactive GINA Comment: Interpretive Data Nonreactive: Antibodies to HCV [...] 8:50 AM CDT 01/24/2020 1:41 PM CDT us Tr Us MD LAB MICROBIOLOGY - GENERAL OR DERABLES Final Result Performing Organization Address [place] [facility] de Phone Number GINA [phone] [place] [address] * US Abdominal Aorta (05/28/2017 8:37 AM [...] PROCEDURES Final Resul t * COLONOSCOPY (09/25/2015) [facility] Colonoscopy Abnormal Comment:Multiple polyps rese cted, [facility], Dr. Mendiola Faustino Mendiola MD HEALTH MAINTENANCE Final Result from Last 3 Months or Most Recently Relevant to Health Maintenance Insurance MEDICARE [facility] [id number] [employer] MEDICARE ADVANTAGE [facility] MEDICARE [facility] Address: [address] [address] [place] [address] [facility] MEDICARE [facility] Address: [address] [address] [place] [address] Care Teams C4 Planner Relationship Specialty Start Date End Date Tr Us MD [address] [place] [address] PCP - General Infectious Diseases 05/21/17 Brian Nascimento MD [address] [address] Consulting Physician Urology 05/21/11 Nayely Huntley MD [address] [address] Consulting Physician Ophthalmology 05/21/17 Kamron Rey MD [address] [address] Consulting Physician Anesthesiology 05/21/17 Faustino Mendiola MD [address] [address] Consulting Physician Gastroenterology 06/28/17 Bob Ocasio MD [address] [facility] [address] [place] [address] Consulting Physician Orthopedic Surgery 11/18/21 Aki Mcgill Ud, MD [address] [facility] [address] [place] [address] Consulting Physician Surgery 12/22/21 Phani Farrar MD [facility] [address] [place] [address] Consulting Physician Pain Management 03/16/22 Manjinder Nascimento MD [address] [facility] [address] [place] [address] Surgeon Orthopedic Surgery 12/18/22 Curt Reyes MD [address] [facility] [place] [address] Consulting Physician Otolaryngology 05/23/23
--- OUTSIDE RECORDS SUMMARY | 2025-01-03 00:22 | XMS_ITS ---
Author Organization [facility] Address [address] [place] [address] Phone Care Team Providers Care Brand Coordinator Name Role Phone DENTONKAI CLEVELAND Unavailable [phone] KIMBERLEE CHRIS, PHANI Kraus Unavailable [phone] Plan of Treatment Pending Tests Order Diagnosis Results Due Ordering P rovider Pain Management CPT MILD Procedure Spinal steno sis, lumbar region with neurogenic claudication 07/17/23 PHANI FARRAR MD Last Documented On 4 7:07AM ; [facility] Referrals To Diagnosis Pain Management [facility] - [address] [place] [id number] - Sacroiliitis, not elsewhere classified Note: Left SI joint steroid injection under fluorosocopy.Nopt diabetic. No blood thinners. No hold ASA. No hold NSAIDs. No PIV/Abx.F/U in 2-3 weeks. Last Documented On 2 9:41AM ; [facility] Pain Management PHANI FARRAR MD - [address] [id number] - Sacroiliitis, not elsewhere classified Note: Left SIJ steroid injec tion with Fluorosocopy.No hold ASA/NSAIDs. [employer]. NPO x 2 hours. No PIV/ABX. Contrast Allergy. Not diabetic.F/U in 2-3 weeks. Last Documented On 2 6:38AM ; [facility] Pain Management PHANI FARRAR MD - [address] [phone] - Pain in left hip Note: Left diagnostic hip in jection with steroid under USPain DiaryF/U in 2-3 weeks Last Documented On 2 11:59AM ; [facility] Pain Management [address] [phone] - Pain in left hip Note: LEft hip femoral and o bturator articular branch blocks x 2 with fluoroscopy.Not diabetic. No blood thinners. Hold ASA x 3 days,. No hold NSAIDs. No PIV/Abx.F/U in 7-10 days. Last Documented On 2 2:33PM ; [facility] Pain Management [address] [phone] - Pain in left hip Note: Left femoral and obtur ator articular branch block (#2) with fluoroscopy.No blood thinners. Not diabetic. Hold ASA x 3 days. No hold NSAIDs. No PIV/Abx.F/U in 7-10 days. Last Documented On 2 11:11AM ; [facility] Pain Management [address] [phone] - Unspecified osteoarthritis, unspecified site Note: Left hip femoral and o bturator articular branch peripheral nerve water- cooled thermal RF ablation under fluoroscopy.No blood thinners. Not diabetic. Hold ASA x 3 days. No hold NSAIDs. PIV/No Abx.F/U in 3-4 weeks. Last Documented On 2 11:12AM ; [facility] Pain Management [address] [phone] - Radiculopathy, lumbosacral region Note: Left L3-4, L4-5 transf oraminal epidural steroid injection with fluoroscopy.Not diabetic. No blood thinners. Hold ASA x 3 days. No hold NSAIDs. Nol PIV/Abx.F/U in 3-4 weeks. Last Documented On 3 2:38PM ; [facility] Instructions to patient Intervention and counseling on cessation of tobacco use : Patient recieved smoking cessation handout Last Documented On 4 9:18AM ; [facility] Intervention and counseling on cessation of tobacco use : Patient recieved smoking cessation handout Last Documented On 4 9:12AM ; [facility] Intervention and counseling on cessation of tobacco use : Patient recieved smoking cessation handout Last Documented On 4 4:31PM ; [facility] Education and Decision Aids were provided during visit for: Pill Count: Patient did not bring pain medication to appointment for pill count, per policy. Advised in order to continue to safely prescribe opioids, medication must be brought to each appointment Last Documented On 3 9:36AM ; [facility] Pill Count: 20 Appropriate Last Documented On 3 9:49AM ; [facility] Pill Count: Patient did not bring pain medication to appointment for pill count, per policy. Advised in order to continue to safely prescribe opioids, medication must be brought to each appointment Last Documented On 3 9:45AM ; [facility] Pill Count: 35 Appropriate Last Documented On 3 11:43AM ; [facility] Pill Count: Patient did not bring pain medication to appointment for pill count, per policy. Advised in order to continue to safely prescribe opioids, medication must be brought to each appointment Last Documented On 3 11:43AM ; [facility] Pill Count: 0 Appropriate Last Documented On 2 11:02AM ; [facility] Assessments Includes: Assessments for all patient encounters Findings Encounter Date Arthralgia of the left pelvis/hip/femur PAIN MANAGEMENT FOLLOW UP with PHANI FARRAR MD 03/01/2024 Last Documented On 4 9:42AM ; [facility] Chronic pain PAIN MANAGEMENT FOLLOW UP with Beverly FARRAR MD 03/01/2024 Last Documented On 4 9:42AM ; [facility] [place] PAIN MANAGEMENT FOLLOW UP with Beverly FARRAR MD 03/01/2024 Last Documented On 4 9:42AM ; [facility] Left sacroiliitis PAIN MANAGEMENT FOLLOW UP with PHANI FARRAR MD 03/01/2024 Last Documented On 4 9:42AM ; [facility] Lumbar stenosis with neuroge mana claudication PAIN MANAGEMENT FOLLOW UP with PHANI FARRAR MD 03/01/2024 Last Documented On 4 9:42AM ; [facility] Lumbosacral radiculopathy PAIN MANAGEMENT FOLLOW UP with PHANI FARRAR MD 03/01/2024 Last Documented On 4 9:42AM ; [facility] Lumbosacral spondylosis PAIN MANAGEMENT FOLLOW U P with PHANI FARRAR MD 03/01/2024 Last Documented On 4 9:42AM ; [facility] Osteoarthritis of multiple sites PAIN MA NAGEMENT FOLLOW UP with PHANI FARRAR MD 03/01/2024 Last Documented On 4 9:42AM ; [facility] Arthralgia of the left pelvis/hip/femur PAIN MANAGEMENT FOLLOW UP with PHANI FARRAR MD 11/25/2023 Last Documented On 4 9:38AM ; [facility] Chronic pain PAIN MANAGEMENT FOLLOW UP with Beverly FARRAR MD 11/25/2023 Last Documented On 4 9:38AM ; [facility] [place] PAIN MANAGEMENT FOLLOW UP with Beverly FARRAR MD 11/25/2023 Last Documented On 4 9:38AM ; [facility] Left sacroiliitis PAIN MANAGEMENT FOLLOW UP with PHANI FARRAR MD 11/25/2023 Last Documented On 4 9:38AM ; [facility] Lumbar stenosis with neuroge mana claudication PAIN MANAGEMENT FOLLOW UP with PHANI FARRAR MD 11/25/2023 Last Documented On 4 9:38AM ; [facility] Lumbosacral radiculopathy PAIN MANAGEMENT FOLLOW UP with PHANI FARRAR MD 11/25/2023 Last Documented On 4 9:38AM ; [facility] Lumbosacral spondylosis PAIN MANAGEMENT FOLLOW U P with PHANI FARRAR MD 11/25/2023 Last Documented On 4 9:38AM ; [facility] Osteoarthritis of multiple sites PAIN MA NAGEMENT FOLLOW UP with PHANI FARRAR MD 11/25/2023 Last Documented On 4 9:38AM ; [facility] Arthralgia of the left pelvis/hip/femur PAIN MANAGEMENT FOLLOW UP with PHANI FARRAR MD 10/29/2023 Last Documented On 4 6:27PM ; [facility] Chronic pain PAIN MANAGEMENT FOLLOW UP with Beverly FARRAR MD 10/29/2023 Last Documented On 4 6:27PM ; [facility] [place] PAIN MANAGEMENT FOLLOW UP with Beverly FARRAR MD 10/29/2023 Last Documented On 4 6:27PM ; [facility] Left sacroiliitis PAIN MANAGEMENT FOLLOW UP with PHANI FARRAR MD 10/29/2023 Last Documented On 4 6:27PM ; [facility] Lumbar stenosis with neuroge mana claudication PAIN MANAGEMENT FOLLOW UP with PHANI FARRAR MD 10/29/2023 Last Documented On 4 6:27PM ; [facility] Lumbosacral radiculopathy PAIN MANAGEMENT FOLLOW UP with PHANI FARRAR MD 10/29/2023 Last Documented On 4 6:27PM ; [facility] Lumbosacral spondylosis PAIN MANAGEMENT FOLLOW U P with PHANI FARRAR MD 10/29/2023 Last Documented On 4 6:27PM ; [facility] Osteoarthritis of multiple sites PAIN MA NAGEMENT FOLLOW UP with PHANI FARRAR MD 10/29/2023 Last Documented On 4 6:27PM ; [facility] Arthralgia of the left pelvis/hip/femur PAIN MANAGEMENT FOLLOW UP with PHANI FARRAR MD 09/30/2023 Last Documented On 4 2:41PM ; [facility] Chronic pain PAIN MANAGEMENT FOLLOW UP with Beverly FARRAR MD 09/30/2023 Last Documented On 4 2:41PM ; [facility] [place] PAIN MANAGEMENT FOLLOW UP with Beverly FARRAR MD 09/30/2023 Last Documented On 4 2:41PM ; [facility] Left sacroiliitis PAIN MANAGEMENT FOLLOW UP with PHANI FARRAR MD 09/30/2023 Last Documented On 4 2:41PM ; [facility] Lumbar stenosis with neuroge mana claudication PAIN MANAGEMENT FOLLOW UP with PHANI FARRAR MD 09/30/2023 Last Documented On 4 2:41PM ; [facility] Lumbosacral radiculopathy PAIN MANAGEMENT FOLLOW UP with PHANI FARRAR MD 09/30/2023 Last Documented On 4 2:41PM ; [facility] Lumbosacral spondylosis PAIN MANAGEMENT FOLLOW U P with PHANI FARRAR MD 09/30/2023 Last Documented On 4 2:41PM ; [facility] Osteoarthritis of multiple sites PAIN MA NAGEMENT FOLLOW UP with PHANI FARRAR MD 09/30/2023 Last Documented On 4 2:41PM ; [facility] Arthralgia of the left pelvis/hip/femur PAIN MANAGEMENT FOLLOW UP with PHANI FARRAR MD 07/15/2023 Last Documented On 3 12:01PM ; [facility] Chronic pain PAIN MANAGEMENT FOLLOW UP with Beverly FARRAR MD 07/15/2023 Last Documented On 3 12:01PM ; [facility] [place] PAIN MANAGEMENT FOLLOW UP with Beverly FARRAR MD 07/15/2023 Last Documented On 3 12:01PM ; [facility] Left sacroiliitis PAIN MANAGEMENT FOLLOW UP with PHANI FARRAR MD 07/15/2023 Last Documented On 3 12:01PM ; [facility] Lumbar stenosis with neuroge mana claudication PAIN MANAGEMENT FOLLOW UP with PHANI FARRAR MD 07/15/2023 Last Documented On 3 12:01PM ; [facility] Lumbosacral radiculopathy PAIN MANAGEMENT FOLLOW UP with PHANI FARRAR MD 07/15/2023 Last Documented On 3 12:01PM ; [facility] Lumbosacral spondylosis PAIN MANAGEMENT FOLLOW U P with PHANI FARRAR MD 07/15/2023 Last Documented On 3 12:01PM ; [facility] Osteoarthritis of multiple sites PAIN MA NAGEMENT FOLLOW UP with PHANI FARRAR MD 07/15/2023 Last Documented On 3 12:01PM ; [facility] Arthralgia of the left pelvis/hip/femur PAIN MANAGEMENT FOLLOW UP with PHANI FARRAR MD 06/17/2023 Last Documented On 3 6:39PM ; [facility] [place] PAIN MANAGEMENT FOLLOW UP with Beverly FARRAR MD 06/17/2023 Last Documented On 3 6:39PM ; [facility] Left sacroiliitis PAIN MANAGEMENT FOLLOW UP with PHANI FARRAR MD 06/17/2023 Last Documented On 3 6:39PM ; [facility] Lumbar stenosis with neuroge mana claudication PAIN MANAGEMENT FOLLOW UP with PHANI FARRAR MD 06/17/2023 Last Documented On 3 6:39PM ; [facility] Lumbosacral radiculopathy PAIN MANAGEMENT FOLLOW UP with PHANI FARRAR MD 06/17/2023 Last Documented On 3 6:39PM ; [facility] Lumbosacral spondylosis PAIN MANAGEMENT FOLLOW U P with PHANI FARRAR MD 06/17/2023 Last Documented On 3 6:39PM ; [facility] Osteoarthritis of multiple sites PAIN MA NAGEMENT FOLLOW UP with PHANI FARRAR MD 06/17/2023 Last Documented On 3 6:39PM ; [facility] Arthralgia of the left pelvis/hip/femur PAIN MANAGEMENT FOLLOW UP with PHANI FARRAR MD 05/13/2023 Last Documented On 3 10:01AM ; [facility] [place] PAIN MANAGEMENT FOLLOW UP with Beverly FARRAR MD 05/13/2023 Last Documented On 3 10:01AM ; [facility] Left sacroiliitis PAIN MANAGEMENT FOLLOW UP with PHANI FARRAR MD 05/13/2023 Last Documented On 3 10:01AM ; [facility] Lumbar stenosis with neuroge mana claudication PAIN MANAGEMENT FOLLOW UP with PHANI FARRAR MD 05/13/2023 Last Documented On 3 10:01AM ; [facility] Lumbosacral radiculopathy PAIN MANAGEMENT FOLLOW UP with PHANI FARRAR MD 05/13/2023 Last Documented On 3 10:01AM ; [facility] Lumbosacral spondylosis PAIN MANAGEMENT FOLLOW U P with PHANI FARRAR MD 05/13/2023 Last Documented On 3 10:01AM ; [facility] Osteoarthritis of multiple sites PAIN MA NAGEMENT FOLLOW UP with PHANI FARRAR MD 05/13/2023 Last Documented On 3 10:01AM ; [facility] Arthralgia of the left pelvis/hip/femur PAIN MANAGEMENT FOLLOW UP with PHANI FARRAR MD 04/14/2023 Last Documented On 3 12:30PM ; [facility] [place] PAIN MANAGEMENT FOLLOW UP with Beverly FARRAR MD 04/14/2023 Last Documented On 3 12:30PM ; [facility] Left sacroiliitis PAIN MANAGEMENT FOLLOW UP with PHANI FARRAR MD 04/14/2023 Last Documented On 3 12:30PM ; [facility] Lumbar stenosis with neuroge mana claudication PAIN MANAGEMENT FOLLOW UP with PHANI FARRAR MD 04/14/2023 Last Documented On 3 12:30PM ; [facility] Lumbosacral radiculopathy PAIN MANAGEMENT FOLLOW UP with PHANI FARRAR MD 04/14/2023 Last Documented On 3 12:30PM ; [facility] Lumbosacral spondylosis PAIN MANAGEMENT FOLLOW U P with PHANI FARRAR MD 04/14/2023 Last Documented On 3 12:30PM ; [facility] Osteoarthritis of multiple sites PAIN MA NAGEMENT FOLLOW UP with PHANI FARRAR MD 04/14/2023 Last Documented On 3 12:30PM ; [facility] Arthralgia of the left pelvis/hip/femur PAIN MANAGEMENT FOLLOW UP with PHANI FARRAR MD 02/03/2023 Last Documented On 3 10:07AM ; [facility] [place] PAIN MANAGEMENT FOLLOW UP with Beverly FARRAR MD 02/03/2023 Last Documented On 3 10:07AM ; [facility] Left sacroiliitis PAIN MANAGEMENT FOLLOW UP with PHANI FARRAR MD 02/03/2023 Last Documented On 3 10:07AM ; [facility] Lumbar stenosis with neuroge mana claudication PAIN MANAGEMENT FOLLOW UP with PHANI FARRAR MD 02/03/2023 Last Documented On 3 10:07AM ; [facility] Lumbosacral radiculopathy PAIN MANAGEMENT FOLLOW UP with PHANI FARRAR MD 02/03/2023 Last Documented On 3 10:07AM ; [facility] Lumbosacral spondylosis PAIN MANAGEMENT FOLLOW U P with PHANI FARRAR MD 02/03/2023 Last Documented On 3 10:07AM ; [facility] Osteoarthritis of multiple sites PAIN MA NAGEMENT FOLLOW UP with PHANI FARRAR MD 02/03/2023 Last Documented On 3 10:07AM ; [facility] Arthralgia of the left pelvis/hip/femur PAIN MANAGEMENT FOLLOW UP with PHANI FARRAR MD 10/28/2022 Last Documented On 3 12:54PM ; [facility] [place] PAIN MANAGEMENT FOLLOW UP with Beverly FARRAR MD 10/28/2022 Last Documented On 3 12:54PM ; [facility] Left sacroiliitis PAIN MANAGEMENT FOLLOW UP with PHANI FRARAR MD 10/28/2022 Last Documented On 3 12:54PM ; [facility] Lumbar stenosis with neuroge mana claudication PAIN MANAGEMENT FOLLOW UP with PHANI FARRAR MD 10/28/2022 Last Documented On 3 12:54PM ; [facility] Lumbosacral radiculopathy PAIN MANAGEMENT FOLLOW UP with PHANI FARRAR MD 10/28/2022 Last Documented On 3 12:54PM ; [facility] Lumbosacral spondylosis PAIN MANAGEMENT FOLLOW U P with PHANI FARRAR MD 10/28/2022 Last Documented On 3 12:54PM ; [facility] Osteoarthritis of multiple sites PAIN MA NAGEMENT FOLLOW UP with PHANI FARRAR MD 10/28/2022 Last Documented On 3 12:54PM ; [facility] Arthralgia of the left pelvis/hip/femur PAIN MANAGEMENT FOLLOW UP with PHANI FARRAR MD 09/23/2022 Last Documented On 3 1:41PM ; [facility] [place] PAIN MANAGEMENT FOLLOW UP with Beverly FARRAR MD 09/23/2022 Last Documented On 3 1:41PM ; [facility] Left sacroiliitis PAIN MANAGEMENT FOLLOW UP with PHANI FARRAR MD 09/23/2022 Last Documented On 3 1:41PM ; [facility] Lumbar stenosis with neuroge mana claudication PAIN MANAGEMENT FOLLOW UP with PHANI FARRAR MD 09/23/2022 Last Documented On 3 1:41PM ; [facility] Lumbosacral radiculopathy PAIN MANAGEMENT FOLLOW UP with PHANI FARRAR MD 09/23/2022 Last Documented On 3 1:41PM ; [facility] Lumbosacral spondylosis PAIN MANAGEMENT FOLLOW U P with PHANI AFRRAR MD 09/23/2022 Last Documented On 3 1:41PM ; [facility] Osteoarthritis of multiple sites PAIN MA NAGEMENT FOLLOW UP with PHANI FARRAR MD 09/23/2022 Last Documented On 3 1:41PM ; [facility] Arthralgia of the left pelvis/hip/femur PAIN MANAGEMENT FOLLOW UP with PHANI FARRAR MD 08/05/2022 Last Documented On 2 11:55AM ; [facility] [place] PAIN MANAGEMENT FOLLOW UP with Beverly FARRAR MD 08/05/2022 Last Documented On 2 11:55AM ; [facility] Left sacroiliitis PAIN MANAGEMENT FOLLOW UP with PHANI FARRAR MD 08/05/2022 Last Documented On 2 11:55AM ; [facility] Lumbar stenosis with neuroge mana claudication PAIN MANAGEMENT FOLLOW UP with PHANI FARRAR MD 08/05/2022 Last Documented On 2 11:55AM ; [facility] Lumbosacral spondylosis PAIN MANAGEMENT FOLLOW U P with PHANI FARRAR MD 08/05/2022 Last Documented On 2 11:55AM ; [facility] Osteoarthritis of multiple sites PAIN MA NAGEMENT FOLLOW UP with PHANI FARRAR MD 08/05/2022 Last Documented On 2 11:55AM ; [facility] Arthralgia of the left pelvis/hip/femur PAIN MANAGEMENT FOLLOW UP with PHANI FARRAR MD 07/23/2022 Last Documented On 2 5:32PM ; [facility] [place] PAIN MANAGEMENT FOLLOW UP with Beverly FARRAR MD 07/23/2022 Last Documented On 2 5:32PM ; [facility] Left sacroiliitis PAIN MANAGEMENT FOLLOW UP with PHANI FARRAR MD 07/23/2022 Last Documented On 2 5:32PM ; [facility] Lumbar stenosis with neuroge mana claudication PAIN MANAGEMENT FOLLOW UP with PHANI FARRAR MD 07/23/2022 Last Documented On 2 5:32PM ; [facility] Lumbosacral spondylosis PAIN MANAGEMENT FOLLOW U P with PHANI FARRAR MD 07/23/2022 Last Documented On 2 5:32PM ; [facility] Osteoarthritis of multiple sites PAIN MA NAGEMENT FOLLOW UP with PHANI FARRAR MD 07/23/2022 Last Documented On 2 5:32PM ; [facility] Arthralgia of the left pelvis/hip/femur PAIN MANAGEMENT FOLLOW UP with PHANI FARRAR MD 06/18/2022 Last Documented On 2 6:29PM ; [facility] [place] PAIN MANAGEMENT FOLLOW UP with Beverly FARRAR MD 06/18/2022 Last Documented On 2 6:29PM ; [facility] Left sacroiliitis PAIN MANAGEMENT FOLLOW UP with PHANI FARRAR MD 06/18/2022 Last Documented On 2 6:29PM ; [facility] Lumbar stenosis with neuroge mana claudication PAIN MANAGEMENT FOLLOW UP with PHANI FARRAR MD 06/18/2022 Last Documented On 2 6:29PM ; [facility] Lumbosacral spondylosis PAIN MANAGEMENT FOLLOW U P with PHANI FARRAR MD 06/18/2022 Last Documented On 2 6:29PM ; [facility] Osteoarthritis of multiple sites PAIN MA NAGEMENT FOLLOW UP with PHANI FARRAR MD 06/18/2022 Last Documented On 2 6:29PM ; [facility] Left Hip pain INJECTION with PHANI FARRAR MD 06/03/2022 Last Documented On 2 2:10PM ; [facility] Osteoarthritis of left hip INJECTION with TASH FARRAR MD 06/03/2022 Last Documented On 2 2:10PM ; [facility] Arthralgia of the left pelvis/hip/femur PAIN MANAGEMENT FOLLOW UP with PHANI FARRAR MD 05/27/2022 Last Documented On 2 5:31PM ; [facility] [place] PAIN MANAGEMENT FOLLOW UP with Beverly FARRAR MD 05/27/2022 Last Documented On 2 5:31PM ; [facility] Left sacroiliitis PAIN MANAGEMENT FOLLOW UP with PHANI FARRAR MD 05/27/2022 Last Documented On 2 5:31PM ; [facility] Lumbar stenosis with neuroge mana claudication PAIN MANAGEMENT FOLLOW UP with PHANI FARRAR MD 05/27/2022 Last Documented On 2 5:31PM ; [facility] Lumbosacral spondylosis PAIN MANAGEMENT FOLLOW U P with PHANI FARRAR MD 05/27/2022 Last Documented On 2 5:31PM ; [facility] Osteoarthritis of multiple sites PAIN MA NAGEMENT FOLLOW UP with PHANI FARRAR MD 05/27/2022 Last Documented On 2 5:31PM ; [facility] [place] PAIN MANAGEMENT FOLLOW UP with Beverly FARRAR MD 04/15/2022 Last Documented On 2 10:22AM ; [facility] Left sacroiliitis PAIN MANAGEMENT FOLLOW UP with PHANI FARRAR MD 04/15/2022 Last Documented On 2 10:22AM ; [facility] Lumbar stenosis with neuroge mana claudication PAIN MANAGEMENT FOLLOW UP with PHANI FARRAR MD 04/15/2022 Last Documented On 2 10:22AM ; [facility] Lumbosacral spondylosis PAIN MANAGEMENT FOLLOW U P with PHANI FARRAR MD 04/15/2022 Last Documented On 2 10:22AM ; [facility] Osteoarthritis of multiple sites PAIN MA NAGEMENT FOLLOW UP with PHANI FARRAR MD 04/15/2022 Last Documented On 2 10:22AM ; [facility] DORSALGIA PAIN MANAGEMENT FOLLOW UP with Beverly FARRAR MD 02/18/2022 Last Documented On 2 5:35PM ; [facility] Left sacroiliitis PAIN MANAGEMENT FOLLOW UP with PHANI FARRAR MD 02/18/2022 Last Documented On 2 5:35PM ; [facility] Lumbar stenosis with neuroge mana claudication PAIN MANAGEMENT FOLLOW UP with PHANI FARRAR MD 02/18/2022 Last Documented On 2 5:35PM ; [facility] Lumbosacral spondylosis PAIN MANAGEMENT FOLLOW U P with PHANI FARRAR MD 02/18/2022 Last Documented On 2 5:35PM ; [facility] Osteoarthritis of multiple sites PAIN MA NAGEMENT FOLLOW UP with PHANI FARRAR MD 02/18/2022 Last Documented On 2 5:35PM ; [facility] DORSALGIA PAIN MANAGEMENT NEW CONSULT with PHANI FARRAR MD 02/04/2022 Last Documented On 2 7:46AM ; [facility] Left sacroiliitis PAIN MANAGEMENT NEW CONSULT wi th PHANI FARRAR MD 02/04/2022 Last Documented On 2 7:46AM ; [facility] Lumbar stenosis with neuroge mana claudication PAIN MANAGEMENT NEW CONSULT with PHANI FARRAR MD 02/04/2022 Last Documented On 2 7:46AM ; [facility] Lumbosacral spondylosis PAIN MANAGEMENT NEW CONS ULT with PHANI FARRAR MD 02/04/2022 Last Documented On 2 7:46AM ; [facility] Osteoarthritis of multiple sites PAIN MA NAGEMENT NEW CONSULT with PHANI FARRAR MD 02/04/2022 Last Documented On 2 7:46AM ; [facility] Instructions Includes: Instructions for all patient encounters Instructions to patient Intervention and counseling on cessation of tobacco use : Patient recieved smoking cessation handout Last Documented On 4 9:18AM ; [facility] Intervention and counseling on cessation of tobacco use : Patient recieved smoking cessation handout Last Documented On 4 9:12AM ; [facility] Intervention and counseling on cessation of tobacco use : Patient recieved smoking cessation handout Last Documented On 4 4:31PM ; [facility] Education and Decision Aids were provided during visit for: Pill Count: Patient did not bring pain medication to appointment for pill count, per policy. Advised in order to continue to safely prescribe opioids, medication must be brought to each appointment Last Documented On 3 9:36AM ; [facility] Pill Count: 20 Appropriate Last Documented On 3 9:49AM ; [facility] Pill Count: Patient did not bring pain medication to appointment for pill count, per policy. Advised in order to continue to safely prescribe opioids, medication must be brought to each appointment Last Documented On 3 9:45AM ; [facility] Pill Count: 35 Appropriate Last Documented On 3 11:43AM ; [facility] Pill Count: Patient did not bring pain medication to appointment for pill count, per policy. Advised in order to continue to safely prescribe opioids, medication must be brought to each appointment Last Documented On 3 11:43AM ; [facility] Pill Count: 0 Appropriate Last Documented On 2 11:02AM ; [facility] Medical Equipment - Implanted Devices Includes: Current and historical Devices No Medical Equipment Recorded Medications Includes: Current and historical Medications Current Medications (continue as prescribed) Benicar HCT 20-12.5 MG Oral Tablet 02/04/2022 Provid er: Diagnosis: Last Documented On 02/04/2022 2:26PM By Christian GARCIA ; [facility] Ezetimibe 10 MG Oral Tablet 02/04/2022 Provider: Diagnosis: Last Documented On 02/04/2022 2:22PM By Christian GARCIA ; [facility] Past Medications on file traMADol HCl 50 MG Oral Tablet 11/04/2022 - 02/03/2023 Provider: PHANI Dickens Diagnosis: Pain in left hip as directed; take on tab by mouth every 6-8 hours max 3/day. Last Documented On 02/03/2023 9:43AM By Christian GARCIA ; [facility] traMADol HCl 50 MG Oral Tablet 10/14/2022 - 11/02/2022 Provider: PHANI Dickens Diagnosis: Pain in left hip as directed; take on tab by mouth every 6-8 hours max 3/day. Last Documented On 11/04/2022 7:37AM By Phani Farrar MD ; [facility] traMADol HCl 50 MG Oral Tablet 10/01/2022 - 10/14/2022 Provider: PHANI Dickens Diagnosis: Pain in left hip as directed; take on tab by mouth every 6-8 hours max 3/day. Last Documented On 10/14/2022 12:53PM By Phani Farrar MD ; [facility] traMADol HCl 50 MG Oral Tablet 09/15/2022 - 10/01/2022 Provider: JOAQUIN WYMAN ANNUAL CAMPAIGN MANAGER-FPA, SERVICE DELIVERY MANAGER-BC Diagnosis: Pain in left hip as directed; take on tab by mouth every 6-8 hours max 3/day. Last Documented On 10/01/2022 1:05PM By Phani Farrar MD ; [facility] traMADol HCl 50 MG Oral Tablet 09/01/2022 - 09/15/2022 Provider: PHANI Dickens Diagnosis: Pain in left hip as directed; take on tab by mouth every 6-8 hours max 3/day. Last Documented On 9:37AM By JOAQUIN WYMAN [facility] ; [facility] traMADol HCl 50 MG Oral Tablet 08/18/2022 - 08/31/2022 Provider: PHANI Dickens Diagnosis: Pain in left hip as directed; take on tab by mouth every 6-8 hours max 3/day. Last Documented On 09/01/2022 6:48AM By Phani Farrar MD ; [facility] traMADol HCl 50 MG Oral Tablet 08/04/2022 - 08/17/2022 Provider: PHANI Dickens Diagnosis: Pain in left hip as directed; take on tab by mouth every 6-8 hours max 3/day. Last Documented On 08/18/2022 9:58AM By Phani Farrar MD ; [facility] Diclofenac Sodium 75 MG Oral Tablet Delayed Release 07/29/2022 - 10/27/2022 Provider: PHANI FARRAR MD Diagnosis: Dorsalgia, unspe cified TAKE ONE TABLET BY MOUTH TWI CE a DAY WITH FOOD AND WATER NEEDED FOR PAIN Last Documented On 07/29/2022 12:37PM By Phani Farrar MD ; [facility] traMADol HCl 50 MG Oral Tablet 07/17/2022 - 08/03/2022 Provider: PHANI Dickens Diagnosis: Pain in left hip as directed; take on tab by mouth every 6-8 hours max 3/day. Last Documented On 08/04/2022 12:32PM By Phani Farrar MD ; [facility] traMADol HCl 50 MG Oral Tablet 07/01/2022 - 07/17/2022 Provider: PHANI Dickens Diagnosis: Pain in left hip as directed; take on tab by mouth every 6-8 hours max 3/day. Last Documented On 07/17/2022 9:36AM By Phani Farrar MD ; [facility] Gabapentin 300 MG Oral Capsule 06/18/2022 - 03/01/2024 Provider: Diagnosis: Last Documented On 03/01/2024 9:23AM By Christian Thornton Cristian ; [facility] traMADol HCl 50 MG Oral Tablet 06/18/2022 - 07/01/2022 Provider: PHANI Dickens Diagnosis: Pain in left hip as directed; take on tab by mouth every 6-8 hours max 3/day. Last Documented On 07/01/2022 11:55AM By Phani Farrar MD ; [facility] traMADol HCl 50 MG Oral Tablet 06/01/2022 - 06/18/2022 Provider: PHANI Dickens Diagnosis: Pain in left hip as directed; take on tab by mouth every 6-8 hours max 3/day. Last Documented On 06/18/2022 10:30AM By Phani Farrar MD ; [facility] traMADol HCl 50 MG Oral Tablet 05/27/2022 - 06/01/2022 Provider: PHANI Dickens Diagnosis: Pain in left hip as directed; take on tab by mouth every 6-8 hours max 3/day. Last Documented On 06/01/2022 3:19PM By Phani Farrar MD ; [facility] Diclofenac Sodium 75 MG Oral Tablet Delayed Release 02/18/2022 - 07/29/2022 Provider: PHANI FARRAR MD Diagnosis: Dorsalgia, unspe cified One tablet twice a day with food and water as needed for pain Last Documented On 07/29/2022 12:37PM By Phani Farrar MD ; [facility] Naproxen Sodium 220 MG Oral Capsule 02/04/2022 - 05/27 Provider: Diagnosis: Last Documented On 05/27/2022 4:08PM By Christian GARCIA ; [facility] Garlic 1000 MG Oral Capsule 02/04/2022 - 05/27/2022 Pr ovider: Diagnosis: Last Documented On 05/27/2022 4:09PM By Christian GARCIA ; [facility] Gabapentin 100 MG Oral Capsule 02/04/2022 - 06/18/2022 Provider: Diagnosis: Last Documented On 06/18/2022 10:07AM By Christian GARCIA ; [facility] Diclofenac Sodium 75 MG Oral Tablet Delayed Release 02/04/2022 - 02/18/2022 Provider: Diagnosis: Last Documented On 02/18/2022 5:32PM By Phani Farrar MD ; [facility] Medications Administered Includes: Administered Medications in patient's chart Medications Administered Diagnosis Date Pro vider dexAMETHasone Sodium Phospha te 10 MG/ML IJ SOLN 06/03/2022 PHANI FARRAR MD administered by Dr. Farrar Last Documented On 2 2:14PM By Sarahi Melchor RN ; [facility] Sodium Chloride 0.9% IJ SOLN 06/03/2022 PHANI FARRAR MD administered by Dr. Farrar for local Last Documented On 2 2:13PM By Sarahi Melchor RN ; [facility] Xylocaine 1% IJ SOLN 06/03/2022 PHANI FARRAR MD administered by Dr. Farrar for local Last Documented On 2 2:11PM By Sarahi Melchor RN ; [facility] Sensorcaine-MPF 0.5% IJ SOLN 06/03/2022 PHANI FARRAR MD administered by Dr. Farrar in left hip Last Documented On 2 2:16PM By Sarahi Melchor RN ; [facility] Vital Signs Includes: Vital Signs from 01/04/2024 through 01/03/2025 Vital Name 03/01/2024 09:23A Blood Pressure Sitting L 130/78 BP Cuff Size Regular Pulse Rate-Sitting (bpm) 58 Pulse Rhythm Regular Height (in) 69 Weight (lb) 143.8 Body Mass Index 21.2 Body Surface Area 1.8 Pain Level 0 Oxygen Saturation (%) 94 Last Documented: On 03/01/2024 9:27AM ; [facility] Results Includes: Results from 01/04/2024 through 01/03/2025 No Results Recorded For Specified Dates History of Present Illness History of Present Illness not supported for this document type No History of Present Illness Recorded Social History Description Last Updated Current smoker 4 CIGS A DAY 02/04/2022 Last Documented On 2 7:46AM ; [facility] No recent change in sleep 02/04/2022 Last Documented On 2 7:46AM ; [facility] Alcohol 02/04/2022 Last Documented On 2 7:46AM ; [facility] Amount of alcohol per day: 2 beers aday 02/04/2022 Last Documented On 2 7:46AM ; [facility] Difficulty walking 02/04/2022 Last Documented On 2 7:46AM ; [facility] Not using drugs 02/04/2022 Last Documented On 2 7:46AM ; [facility] Smoking packs of cigarettes per day 4 ci garettes a day 02/04/2022 Last Documented On 2 7:46AM ; [facility] Smoking Status Unknown Procedures and Surgical History Includes: Procedures from 01/04/2024 through 01/03/2025 Procedures Code Diagnosis Performing Provider Service Location Service Date CLINIC FACILITY FEE (Signi/Sep Eval & Man) [id number] Spinal stenosis, lumbar region with neurogenic claudication, Dorsalgia, unspecified, Sacroiliitis, not elsewhere classified, Unspecified osteoarthritis, unspecified site PHANI FARRAR MD [facility] 03/01/2024 Last Documented On 4 3:40PM ; [facility] Surgical History Last Updated No Pacemaker 02/04/2022 Last Documented On 2 7:46AM ; [facility] Surgical / procedural history Nothing ju st medication 02/04/2022 Last Documented On 2 7:46AM ; [facility] Medical History Includes: Medical History in patient's chart Description Last Updated Denies a fear of falling. FE LL ON WEDNESDAY LANDED RIGHT ON RT SIDE HURT HAND BUT NOTHING MAJOR 07/15/2023 Last Documented On 3 12:01PM ; [facility] Has had no fall in the last 12 months. 0 02/04/2022 Last Documented On 2 7:46AM ; [facility] Blood pressure was high 02/04/2022 Last Documented On 2 7:46AM ; [facility] Hypertension 02/04/2022 Last Documented On 2 7:46AM ; [facility] No exposure to a contagious disease 01/18 Last Documented On 2 7:46AM ; [facility] No previous psychiatric treatment 2021 Last Documented On 2 7:46AM ; [facility] Not taking OTC medications 02/04/2022 Last Documented On 2 7:46AM ; [facility] Taking medication for high blood pressur e 02/04/2022 Last Documented On 2 7:46AM ; [facility] Acupuncture 02/04/2022 Last Documented On 2 7:46AM ; [facility] child care assistant 02/04/2022 Last Documented On 2 7:46AM ; [facility] CT/MRI December 2021 for mri and january 2022 0 02/04/2022 Last Documented On 2 7:46AM ; [facility] Currently wearing eyeglasses 02/04/2022 Last Documented On 2 7:46AM ; [facility] Injection/Nerve blocks 02/04/2022 Last Documented On 2 7:46AM ; [facility] Message/Acupressure 02/04/2022 Last Documented On 2 7:46AM ; [facility] Moderate Pain 02/04/2022 Last Documented On 2 7:46AM ; [facility] No Pain Pump 02/04/2022 Last Documented On 2 7:46AM ; [facility] No Spinal cord stimulator 02/04/2022 Last Documented On 2 7:46AM ; [facility] Other method: 02/04/2022 Last Documented On 2 7:46AM ; [facility] Physical therapy 02/04/2022 Last Documented On 2 7:46AM ; [facility] Please list all illnesses/co nditions you have been diagnosed with: High blood pressure and high cholesterol 02/04/2022 Last Documented On 2 7:46AM ; [facility] Please list all surgeries: R otator cuff partial and full. hernia retna and cataracs 02/04/2022 Last Documented On 2 7:46AM ; [facility] Treatment with TENS unit 02/04/2022 Last Documented On 2 7:46AM ; [facility] X-rays October and november 2021 2 Last Documented On 2 7:46AM ; [facility] Family History Includes: Family History in patient's chart Description Last Updated Paternal history of family history of is chemic heart disease 02/04/2022 Last Documented On 2 7:46AM ; [facility] Review of Systems Review of Systems not supported for this document type No Review of Systems Recorded Mental Status No Mental Status Recorded Functional Status No Functional Status Recorded Physical Exam Physical Exam not supported for this document type No Physical Exam Recorded Allergies Includes: Active, inactive, and resolved Allergies Substance Type Reaction Onset Date Resolved Date Statu s Tetanus Toxoids Allergy 02/04/2022 Act suzie Last Documented On 4 9:23AM ; [facility] Sulfonamides Allergy Shock 02/04/2022 Active Last Documented On 4 9:23AM ; [facility] Sulfa Antibiotics Allergy Shock 02/04/2022 A ctive Last Documented On 4 9:23AM ; [facility] Statins Allergy 02/04/2022 Active Last Documented On 03/01/2024 9:23AM ; [facility] Note: MUSCLE PAIN Iodinated contrast media Allergy Shortne ss of Breath / Dyspnea 02/04/2022 Active Last Documented On 4 9:23AM ; [facility] Encounters Includes: Encounters from 01/04/2024 through 01/03/2025 Encounter Provider Location Date Check-In Time Check-Out Time Diagnosis PAIN MANAGEMENT FOLLOW UP PHANI FARRAR MD [facility] 024 9:18AM 9:37AM Osteoarthritis Multiple Sites,Chronic Pain,Spinal Stenosis Lumbar with Neurogenic Claudication,Arth ralgia - Pelvis / Hip / Femur Left,Spondylosis Lumbosacral Region,Radiculopa thy of Lumbosacral Region,Sacroiliit is Left,Dorsalgia Insurance Includes: Active Insurance Policies Plan Name Member ID Group # Subscriber Relationship Effect suzie Dates 1 - [facility]/MEDICARE ADV/[employer] [id number] YOEL WELLS Self Clinical Notes Includes: Signed Clinical Notes starting from 10/09/2022 * Progress note Date Encounter Last Documented by 03/01/2024 PAIN MANAGEMENT FOLLOW UP Last d ocumented on 03/01/2024; 9:42 AM, PHANI FARRAR MD; [facility] Chief Complaint The Chief Complaint is: 3 MONTH F/U MILD DONE ON 10-22-23 PT HAS NOTICED IMPROVEMENT. STILL DOING PT AT HOME. THAT HELPS. 2 TIMES A WEEK. DIFFICULTY FINDING A WAY TO SLEEP. STILL HAS SOME PAIN IN THE MORNING BUT AFTER HE GETS UP AND GETS MOVING HE HAS NO PAIN. History of Present Illness PHQ-9 Score: 0 [...] EPIDURAL AND THAT HELP. DR. BACON IN [place] [facility] FOR HEADACHES THAT HELPED. [...] - 5 levels. YOEL WELLS is a 78 year old male. - Allergy list reviewed [...] - Pain aggravated bending - No vertigo Discussion:patient returns in follow-upapproximate 3 months after undergoing minimally invasive lumbar decompression bilaterally at the L3 - 4 and L4 - 5 levels. Although he still has aches and pains in the morning the 1st arises from sleep which improved quickly with mobility exercises in the early-morning he does not have persistent pain throughout the day does not feel especially limited. Overall he feels markedly improved relative to his initial pain level and degree of limitation time of his initial presentation. His overall very pleased with this result. Discussed multiple options for maintain mobility and flexibility as well as strengthening conditioning. We discussed analgesic options [id number] for managing pain. He does feel fairly comfortable with his current regimen. We can consider additional physical therapy, intra-articular injections if necessary down the road to help with shoulder or hip pain. Can also consider repeating epidural injections if on occasion his radicular symptoms return. However, at this point he is quite happy with his overall outcome. We will have him follow-up on as-needed basis should pain persist, worsen or should he develop new symptoms or require evaluation. He is in agreement. Risks, benefits and alternatives the above treatment options were discussed in detail the patient who expressed explicit understanding and consent to proceed. Questions were elicited, asked and answered the best of our ability to his satisfaction today. [place] prescription monitoring database was reviewed and found to be appropriate. PRIOR VISIT (11/25/23): Patient returns in follow-up one month after undergoing [...] our ability and to his satisfaction today. [employer] prescription monitoring database was reviewed and found [...] new neurologic deficit. No new prescriptions necessary. [place] prescription monitoring database was reviewed and found [...] 1 capsule daily 0 days, 0 refills Past Medical/Surgical History Reported: Acupuncture, Injection/Nerve blocks, child care assistant, Treatment with TENS unit, Physical therapy, Message/Acupressure, [...] or sores. Physical Findings - Vitals taken 03/01/2024 09:23 am BP-Sitting L 130/78 mmHg BP Cuff Size Regular Pulse Rate-Sitting 58 bpm Pulse Rhythm Regular Height 69 in Weight 143 lbs 12.8 oz Body Mass Index 21.2 kg/m2 Body Surface Area 1.8 m2 Pain Level 0 Oxygen Saturation 94 % Vital Signs: - [...] in all extremities. No focal neurologic deficit. [id number] normal bilaterally. Babinski downgoing. Psych: No apparent [...] tobacco use: Patient recieved smoking cessation handout. Plan Patient will continue home exercises and intermittent use of [id number] oral analgesics as well as topical analgesics. Exercises were demonstrated for the patient today. Recommendations regarding intermittent use of oral analgesics and topical analgesics were discussed in detail. Options for management of chronic shoulder and hip pain as well as low back pain were discussed in detail should his pain worsened. Questions were answered to the patient satisfaction today. We'll see the patient back on an as-needed basis should symptoms worsen or should he develop new symptomsthat require evaluation. Practice Management Use of tobacco assessment performed Review of medications documented; Standardized depression screening: negative for symptoms and for adult impression and score 0. A total of 31 minutes were spent on this patient's evaluation, as above, with greater than 50% of this time spent in direct [id number] counseling and coordination of care. Results of [...] but may be subject to typographical or representative phlebotomy services errors. Verify all diagnoses, medications, dosages, and patient instructions with patient and/or the originator of this document. Care Team - KAI BUSCH - Internal Medicine - PHANI FARRAR MD - Pain Medicine Health Reminders - Assess BMI satisfied 03/01/2024. - Assess Tobacco Use satisfied 03/01/2024. - Depression Screening satisfied 03/01/2024. - Follow up plan for Depression Screening satisfied 03/01/2024. - Smoking & Tobacco Cessation Intervention and Counseling satisfied 03/01/2024.
--- OUTSIDE RECORDS SUMMARY | 2025-01-03 00:23 | XMS_ITS | Encounter Summary ---
Author Organization [facility] Address [address] [place] [address] Phone Care Team Providers Care Signal Wirer Name Role Phone Tr Us MD Primary Care Provider Brian Nascimento MD Unavailable [phone] Nayely Huntley MD Unavailable [phone] Kamron Rey MD Unavailable [phone] Faustino Mendiola MD Unavailable [phone] Bob Ocasio MD Unavailable [phone] Aki Mcgill Ud, MD Unavailable Phani Farrar MD Unavailable [phone] Manjinder Nascimento MD Unavailable [phone] Curt Reyes MD Unavailable [phone] Curt Reyes MD Unavailable [phone] Encounter Details Date Type Department Care Team (Late st Contact Info) Description 12/22/2017 Orders Only [facility] [address] [place] [address] Tr Us MD [address] [place] [address] Social History Tobacco Use Types Packs/Day Years Used Date Smoking Tobacco: Some Days Cigarettes Started: 12/20/1961 Smokeless Tobacco: Never Alcohol Use Standard Drinks/Week Comments Yes 0 (1 standard drink = 0.6 oz pur e alcohol) Sex and Gender Information Value Date Recorded Sex Assigned at Not on file Legal 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 Gender Identity Not on file Sexual Orientation Not on file documented as of this encounter Plan of Treatment Not on file documented as of this encounter Procedures Procedure Name Priority Date/Time Associated Diagnosis Comments SCAN - LABS 12/22/2017 8:19 AM CDT documented in this encounter Results * SCAN - LABS (12/22/2017 8:19 AM CDT) Tr Us MD Final Result documented in this encounter Visit Diagnoses Not on filedocumented in this encounter Additional Health Concerns Infection Onset Date Last Indicated Resolved Time COVID: Suspected 09/17/2022 09/17/2022 09/17/2022 3:39 PM FLOORING GRADER Influenza, adult 09/17/2022 09/17/2022 09/24/2022 3:05 AM FLOORING GRADER documented as of this encounter Care Teams Signal Wirer Relationship Specialty Start Date End Date Tr Us MD [address] [place] [address] PCP - General Infectious Diseases 05/21/17 Brian Nascimento MD [address] [address] Consulting Physician Urology 05/21/11 Nayely Huntley MD [address] [address] Consulting Physician Ophthalmology 05/21/17 Kamron Rey MD [address] [address] Consulting Physician Anesthesiology 05/21/17 Faustino Mendiola MD [address] [address] Consulting Physician Gastroenterology 06/28/17 Bob Ocasio MD [address] [facility] [address] [place] [address] Consulting Physician Orthopedic Surgery 11/18/21 Aki Mcgill Ud, MD [address] [address] [place] [address] Consulting Physician Surgery 12/22/21 Phani Farrar MD [address] [place] [address] Consulting Physician Pain Management 03/16/22 Manjinder Nascimento MD [address] [facility] [address] [place] [address] Surgeon Orthopedic Surgery 12/18/22 Curt Reyes MD [address] [place] [address] Consulting Physician Otolaryngology 05/23/23 Curt Reyes MD [address] [place] [address] Consulting Physician Otolaryngology 06/04/23 09/13/23 documented as of this encounter
--- OUTSIDE RECORDS SUMMARY | 2025-01-03 00:23 | XMS_ITS | Encounter Summary ---
Author Organization [facility] Address [address] [place] [address] Phone Care Team Providers Care Neon Sign Erector Name Role Phone Tr Us MD Primary Care Provider Brian Nascimento MD Unavailable [phone] Nayely Huntley MD Unavailable [phone] Kamron Rey MD Unavailable [phone] Faustino Mendiola MD Unavailable [phone] Bob Ocasio MD Unavailable [phone] Aki Mcgill Ud, MD Unavailable Phani Farrar MD Unavailable [phone] Manjinder Nascimento MD Unavailable [phone] Curt Reyes MD Unavailable [phone] Curt Reyes MD Unavailable [phone] Encounter Details Date Type Department Care Team (Late st Contact Info) Description 06/14/2017 Orders Only [facility] [address] [place] [address] Tr Us MD [address] [place] [address] Social History Tobacco Use Types Packs/Day Years Used Date Smoking Tobacco: Some Days Smokeless Tobacco: Never Alcohol Use Standard Drinks/Week Comments Yes 0 (1 standard drink = 0.6 oz pur e alcohol) Sex and Gender Information Value Date Recorded Sex Assigned at Not on file 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 Gender Identity Not on file Sexual Orientation Not on file documented as of this encounter Plan of Treatment Not on file documented as of this encounter Procedures Procedure Name Priority Date/Time Associated Diagnosis Comments SCAN - LABS 06/14/2017 8:42 AM CDT documented in this encounter Results * SCAN - LABS (06/14/2017 8:42 AM CDT) Tr Us MD Final Result documented in this encounter Visit Diagnoses Not on filedocumented in this encounter Additional Health Concerns Infection Onset Date Last Indicated Resolved Time COVID: Suspected 09/17/2022 09/17/2022 09/17/2022 3:39 PM ELECTRONIC SEMICONDUCTOR PROCESSOR Influenza, adult 09/17/2022 09/17/2022 09/24/2022 3:05 AM ELECTRONIC SEMICONDUCTOR PROCESSOR documented as of this encounter Care Teams Neon Sign Erector Relationship Specialty Start Date End Date Tr Us MD [address] [address] PCP - General Infectious Diseases 05/21/17 Brian Nascimento MD [address] [place] [address] Consulting Physician Urology 05/21/11 Nayely Huntley MD [address] [place] [address] Consulting Physician Ophthalmology 05/21/17 Kamron Rey MD [address] [place] [address] Consulting Physician Anesthesiology 05/21/17 Faustino Mendiola MD [address] [place] [address] Consulting Physician Gastroenterology 06/28/17 Bob Ocasio MD [address] [facility] [address] [place] [address] Consulting Physician Orthopedic Surgery 11/18/21 Aki Mcgill Ud, MD [facility] [facility] [address] [place] [address] Consulting Physician Surgery 12/22/21 Phani Farrar MD [facility] [facility] [address] [place] [address] Consulting Physician Pain Management 03/16/22 Manjinder Nascimento MD [address] [facility] [address] [place] [address] Surgeon Orthopedic Surgery 12/18/22 Curt Reyes MD [address] [place] [address] Consulting Physician Otolaryngology 05/23/23 Curt Reyes MD [address] [place] [address] Consulting Physician Otolaryngology 06/04/23 09/13/23 documented as of this encounter
--- OUTSIDE RECORDS SUMMARY | 2025-01-03 00:23 | XMS_ITS | Encounter Summary ---
Author Organization [facility] Address [address] [place] [address] Phone Care Team Providers Care Key Ringer Name Role Phone Adi Olvera MD Primary Care Provider Tr Us MD Primary Care Provider Brian Nascimento MD Unavailable [phone] Nayely Huntley MD Unavailable [phone] Kamron Rey MD Unavailable [phone] Faustino Mendiola MD Unavailable Bob Ocasio MD Unavailable [phone] Aki cMgill Ud, MD Unavailable Phani Farrar MD Unavailable [phone] Manjinder Nascimento MD Unavailable [phone] Curt Reyes MD Unavailable [phone] Curt Reyes MD Unavailable [phone] Encounter Details Date Type Department Care Team (Late st Contact Info) Description 05/06/2017 Orders Only [facility] [address] [place] [address] Tr Us MD [address] [place] [address] Social History Tobacco Use Types Packs/Day Years Used Date Smoking Tobacco: Never Assessed Alcohol Use Standard Drinks/Week Comments Yes 0 (1 standard drink = 0.6 oz pur e alcohol) Sex and Gender Information Value Date Recorded Sex Assigned at Not on file 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 Gender Identity Not on file Sexual Orientation Not on file documented as of this encounter Plan of Treatment Not on file documented as of this encounter Procedures Procedure Name Priority Date/Time Associated Diagnosis Comments SCAN - RADIOLOGY/IMAGING 05/06/2017 documented in this encounter Results * SCAN - RADIOLOGY/IMAGING (05/06/2017) Anatomical Region Laterality Modality Other Tr Us MD Final Result documented in this encounter Visit Diagnoses Not on filedocumented in this encounter Additional Health Concerns Infection Onset Date Last Indicated Resolved Time COVID: Suspected 09/17/2022 09/17/2022 09/17/2022 3:39 PM MEATMAN Influenza, adult 09/17/2022 09/17/2022 09/24/2022 3:05 AM MEATMAN documented as of this encounter Care Teams Key Ringer Relationship Specialty Start Date End Date Adi Olvera MD [address] [place] [address] PCP - General 10/12/06 05/20/17 Tr Us MD [address] [place] [address] PCP - General Infectious Diseases 05/21/17 Brian Nascimento MD [address] [address] Consulting Physician Urology 05/21/11 Nayely Huntley MD [address] [address] Consulting Physician Ophthalmology 05/21/17 Kamron Rey MD [address] [address] Consulting Physician Anesthesiology 05/21/17 Faustino Mendiola MD [address] [address] Consulting Physician Gastroenterology 06/28/17 Bob Ocasio MD [address] [facility] [address] [place] [address] Consulting Physician Orthopedic Surgery 11/18/21 Aki Mcgill Ud, MD [address] [facility] [address] [place] [address] Consulting Physician Surgery 12/22/21 Phani Farrar MD [address] [facility] [address] [place] [address] Consulting Physician Pain Management 03/16/22 Manjinder Nascimento MD [address] [facility] [address] [place] [address] Surgeon Orthopedic Surgery 12/18/22 Curt Reyes MD [address] [place] [address] Consulting Physician Otolaryngology 05/23/23 Curt Reyes MD [address] [place] [address] Consulting Physician Otolaryngology 06/04/23 09/13/23 documented as of this encounter
--- OUTSIDE RECORDS SUMMARY | 2025-01-03 00:23 | XMS_ITS | Continuity of Care Document ---
Author Organization [facility] Address [address] [facility] [address] [place] [address] Phone Care Team Providers Care Land Planner Name Role Phone Yovani Felder Unavailable Unavailable Advance Directives Directive Yes / No Effective Date File Name No Information Encounters Encounter Description Practice Location Reason(s) For Visit Diagnoses Date Provider Providers Copied on Encounter [facility], [address], [place], [place], [id number], [place] tel:[phone] [facility] No Information [address] , [address], [place], [address], [place]. tel:[phone] Family History Family Member Type Diagnosis Age At Onset No Information Payers Payer name Insurance type Covered libertarian ID Authoriza tion(s) No Information Social History Type Description Quantity Date Captured Comments Sex Male Smoking Status No Information Chief Complaint And Reason For Visit No Information Reason For Referral Reason For Referral No Information History Of Present Illness Encounter Date Complaint History Of Prese nt Illness No Information Functional Status Date Functional Assessmen t No Information Instructions Date Instruction Additional Infor mation No Information Assessments Type Assessment Date No Information Patient Care Teams Name Effective Dates (start - stop) Status Members No Information
--- OUTSIDE RECORDS SUMMARY | 2025-01-03 00:23 | XMS_ITS | Encounter Summary ---
Author Organization [facility] Address [address] [place] [address] Phone Care Team Providers Care Artist Agent Name Role Phone Tr Us MD Primary Care Provider [phone] Brian Nascimento MD Unavailable [phone] Nayely Huntley MD Unavailable [phone] Kamron Rey MD Unavailable [phone] Faustino Mendiola MD Unavailable [phone] Bob Ocasio MD Unavailable [phone] Aki Mcgill Ud, MD Unavailable Phani Farrar MD Unavailable [phone] Manjinder Nascimento MD Unavailable [phone] Curt Reyes MD Unavailable [phone] Curt Reyes MD Unavailable [phone] Encounter Details Date Type Department Care Team (Late st Contact Info) Description 06/14/2017 Orders Only [facility] [address] [place] [address] Tr Us MD [address] [address] Social History Tobacco Use Types Packs/Day Years Used Date Smoking Tobacco: Some Days Smokeless Tobacco: Never Alcohol Use Standard Drinks/Week Comments Yes 0 (1 standard drink = 0.6 oz pur e alcohol) Sex and Gender Information Value Date Recorded Sex Assigned at Not on file Legal Sex Male 12:14 AM UNIT TENDER Gender Identity Not on file Sexual Orientation [...] COVID: Suspected 09/17/2022 09/17/2022 09/17/2022 3:39 PM UNIT TENDER Influenza, adult 09/17/2022 09/17/2022 09/24/2022 3:05 AM UNIT TENDER documented as of this encounter Care Teams Artist Agent Relationship Specialty Start Date End Date Tr Us MD [address] [address] PCP - General Infectious Diseases 05/21/17 Brian Nascimento MD [address] [place] [address] Consulting Physician Urology 05/21/11 Nayely Huntley MD [address] [place] [address] Consulting Physician Ophthalmology 05/21/17 Kamron Rey MD [address] [place] [address] Consulting Physician Anesthesiology 05/21/17 Faustino Mendiola MD [address] [place] [address] Consulting Physician Gastroenterology 06/28/17 Bob Ocasio MD [address] [facility] [address] [place] [address] Consulting Physician Orthopedic Surgery 11/18/21 Aki Mcgill Ud, MD [facility] [facility] [address] [place] [address] Consulting Physician Surgery 12/22/21 Phani Farrar MD [facility] [facility] [address] [place] [address] Consulting Physician Pain Management 03/16/22 Manjinder Nascimento MD [address] [facility] [address] [place] [address] Surgeon Orthopedic Surgery 12/18/22 Curt Reyes MD [address] [place] [address] Consulting Physician Otolaryngology 05/23/23 Curt Reyes MD [address] [place] [address] Consulting Physician Otolaryngology 06/04/23 09/13/23 documented as of this encounter
[2025-01-03 09:20] VITALS: BP 139/96; PULSE 82; RESP 18; TEMP 36.4; O2SAT 100; BMI 20.5
[2025-01-03] MEDS: LACTATED RINGERS 1,000 ML 150 ML IV CONT (09:23)
--- NOTE | 2025-01-03 09:53 | WPDANESEPPF ---
Anes - Initial Pre Proc Eval Procedure: Operation Date: 01/03/25 10:30 Proposed Procedures p Screening Colonoscopy - Sean Fay MD Date/Time: 01/03/25 09:53 Surgeon: Sean Fay MD Pre Op Diagnosis: screening colon Patient Data Age: 79 Gender: M Height: 1.75 m Weight: 63.1 kg Last Vital Signs Temp 36.4 C 01/03/25 09:20 Pulse 82 01/03/25 09:20 Resp 18 01/03/25 09:20 BP 139/96 H 01/03/25 09:20 Pulse Ox 100 01/03/25 09:20 O2 Del Method Room Air 01/03/25 09:20 Allergies Allergy/AdvReac Type Severity Reaction Status Date / Time Sulfa (Sulfonamide Allergy Unknown Swelling Verified 01/03/25 09:18 Antibiotics) tetanus and diphtheria Allergy Unknown FEVER Verified 01/03/25 09:18 toxoids Home Medications ?Medication ?Instructions ?Recorded ?Confirmed ?Type Ultra prostate formula 1 tablet PO DAILY 12/26/24 01/03/25 History aspirin 325 mg tablet 325 mg PO DAILY 12/26/24 01/03/25 History ezetimibe 10 mg tablet (Zetia) 10 mg PO DAILY 12/26/24 01/03/25 History ibuprofen 200 mg tablet 400 mg PO DAILY 12/26/24 01/03/25 History multivitamin 1 tablet PO DAILY 12/26/24 01/03/25 History olmesartan 20 1 tablet PO DAILY 12/26/24 01/03/25 History mg-hydrochlorothiazide 12.5 mg tablet Patient hx anesthesia problems: none Family hx anesthesia problems: none Results Review: All pre-operative results and documents have been reviewed as part of the pre-operative evaluation. [facility] Social History Social History Years smoked: 60 Smoking status: Current every day smoker Tobacco type: cigarettes Alcohol intake: current Drinks per week: 7 Alcohol use details: Beer Substance use: never Substance use type: does not use Living arrangements: with family Spiritual care concerns: No Anes - Eval Final PreProcedure Day of Procedure 01/03/25 09:53 Patient weight: thin Heart: regular rate and rhythm Lungs: clear to auscultation Airway: Mallampati scale class II Neurological: alert and oriented Last oral intake: >/= 8 hours ASA classification: III Emergent: no Anesthetic plan: proceed Anesthesia type and monitoring: general GIVS and standard monitoring Results Review: All pre-operative results and documents have been reviewed as part of the pre-operative evaluation. Informed Consent: The patient's anesthetic plan and its attendant risks and benefits were discussed with the patient/family/POA. Questions were solicited and answers provided to the satisfaction of the patient/family/POA.
--- NOTE | 2025-01-03 10:02 | PM.HPGS ---
History of Present Illness History of Present Illness Consent: Risks, benefits, and alternatives have been discussed and questions answered. Patient agrees to proceed with procedure. Chief complaint: screening colon Narrative: Jak Huitron is a 79 year old male with colon polyp 6 years ago Review of Systems Review of Systems: All systems reviewed & are unremarkable except as noted in HPI and below PMFSH Past Medical History Medical History (Updated 01/03/25 @ 10:06 by Sean Fay MD) Colon polyp Social History Social History Years smoked: 60 Smoking status: Current every day smoker Tobacco type: cigarettes Alcohol intake: current Drinks per week: 7 Alcohol use details: Beer Substance use: never Substance use type: does not use Living arrangements: with family Spiritual care concerns: No Meds Home Medications and Allergies Home Medications ?Medication ?Instructions ?Recorded ?Confirmed ?Type Ultra prostate formula 1 tablet PO DAILY 12/26/24 01/03/25 History aspirin 325 mg tablet 325 mg PO DAILY 12/26/24 01/03/25 History ezetimibe 10 mg tablet (Zetia) 10 mg PO DAILY 12/26/24 01/03/25 History ibuprofen 200 mg tablet 400 mg PO DAILY 12/26/24 01/03/25 History multivitamin 1 tablet PO DAILY 12/26/24 01/03/25 History olmesartan 20 1 tablet PO DAILY 12/26/24 01/03/25 History mg-hydrochlorothiazide 12.5 mg tablet Allergies Allergy/AdvReac Type Severity Reaction Status Date / Time Sulfa (Sulfonamide Allergy Unknown Swelling Verified 01/03/25 09:18 Antibiotics) tetanus and diphtheria Allergy Unknown FEVER Verified 01/03/25 09:18 toxoids Vital Signs Vital Signs - 24 hr 01/03/25 09:20 Temperature 97.6 F Pulse Rate 82 Respiratory Rate 18 Blood Pressure 139/96 H Pulse Oximetry 100 Oxygen Delivery Room Air Exam Const: General: comfortable and no acute distress HENMT: Face/Nose/Sinus: Normal nares present Eyes: General: appearance normal, both eyes and all related structures Neck: Neck: no JVD Resp: Auscultation: clear to auscultation bilaterally Cardio: Rate: regular rate Rhythm: regular rhythm GI: Inspection: non-distended GI Palp: Yes Soft to palpation Skin: General skin exam: normal color Neuro: Speech: normal speech Extrem: General: normal to inspection Psych: Mental Status: mental status grossly normal Assessment and Plan Assessment and plan (1) Colon polyp: Code(s): K63.5 - Polyp of colon Status: Acute Assessment and Plan: colonoscopy
[2025-01-03 10:25] VITALS: BP 80/48; PULSE 63; RESP 18; O2SAT 100
[2025-01-03 10:35] VITALS: BP 104/73; PULSE 52; RESP 19; O2SAT 100
[2025-01-03 10:45] VITALS: BP 117/66; PULSE 54; RESP 24; O2SAT 100
== END 2025-01-03 10:58 | disposition home or self-care (01) ==
PROVIDERS: PCP Internal Medicine Infectious Disease; Referring Provider Internal Medicine Geriatric Medicine; Visit Provider Internal Medicine Gastroenterology
PROC: 0DJD8ZZ Inspection of Lower Intestinal Tract, Via Natural or Artificial Opening Endoscopic (ICD-10-PCS; CPT 45378; principal; 2025-01-03 10:30)
DX: Z12.11 Encounter for screening for malignant neoplasm of colon (principal); K57.30 Diverticulosis of large intestine without perforation or abscess without bleeding; K64.8 Other hemorrhoids; Z86.0100 Personal history of colon polyps, unspecified; F17.210 Nicotine dependence, cigarettes, uncomplicated
CPT/HCPCS: G0105; J2003; J2704; J7120